=== PATIENT | female | born 1960 | race Caucasian/White ===

== ENCOUNTER 2018-07-18 22:26 | Observation (INO) | payer MEDICARE, OTHER ==
[2018-07-18] MEDS ORDERED: ASPIRIN 81 MG PO STA (23:16)
[2018-07-18] MEDS ORDERED: SODIUM CHLORIDE 0.9% 1,000 ML IV STA (23:16)
--- NOTE | 2018-07-18 23:44 | ED ---
General Adult HPI - General Chief complaint: Chest Pain Stated complaint: Chest/stomach pain Time Seen by Provider: 07/18/18 23:07 Source: patient, RN notes reviewed Mode of arrival: wheelchair Limitations: no limitations - History of Present Illness Initial comments: 58-year-old female with a history of heart failure, RA, asthma presents to the emergency department for multiple complaints. Patient states she has had chest pain and pressure 1.5 weeks. She states that each day seems to be getting worse. She denies any radiating pain. She also states that she has epigastric and left upper quadrant pain that is worsening along with the chest pain. Patient states this is worse when she lies down. Patient states she has also been somewhat short of breath because she has had a cough as well as congestion. She states she is a smoker but has not been diagnosed with COPD. She does have a history of asthma.Patient has no other complaints at this time including nausea or vomiting, headache, or visual changes. - Related Data Home Medications Medication Instructions Recorded Confirmed No Known Home Medications 07/18/18 07/18/18 Allergies Allergy/AdvReac Type Severity Reaction Status Date / Time No Known Allergies Allergy Verified 07/18/18 22:34 Review of Systems ROS Statement: Those systems with pertinent positive or pertinent negative responses have been documented in the HPI. ROS Other: All systems not noted in ROS Statement are negative. Past Medical History Additional Past Medical History / Comment(s): BACK PAIN History of Any Multi-Drug Resistant Organisms: None Reported Past Surgical History: Adenoidectomy, Back Surgery, Hysterectomy, Tonsillectomy , Tubal Ligation Additional Past Surgical History / Comment(s): LEFT BUNIONECTOMY, LEFT WRIST SURGERY Past Psychological History: Anxiety, Depression Smoking Status: Current every day smoker Past Alcohol Use History: None Reported Past Drug Use History: None Reported General Exam Limitations: no limitations General appearance: alert, in no apparent distress Head exam: Present: atraumatic, normocephalic, normal inspection Eye exam: Present: normal appearance, PERRL, EOMI. Absent: scleral icterus, conjunctival injection, periorbital swelling ENT exam: Present: normal exam, mucous membranes moist Neck exam: Present: normal inspection, full ROM. Absent: tenderness, meningismus, lymphadenopathy Respiratory exam: Present: normal lung sounds bilaterally. Absent: respiratory distress, wheezes, rales, rhonchi, stridor Cardiovascular Exam: Present: regular rate, normal rhythm, normal heart sounds. Absent: systolic murmur, diastolic murmur, rubs, gallop, clicks GI/Abdominal exam: Present: soft, tenderness (LUQ and epigastric tenderness without gaurding or rebound), normal bowel sounds. Absent: distended, guarding , rebound, rigid Course Vital Signs 07/18/18 07/19/18 07/19/18 22:32 01:08 01:22 Temperature 98.3 F 99.7 F H Pulse Rate 99 93 92 Respiratory 18 18 Rate Blood Pressure 144/86 157/73 O2 Sat by Pulse 98 99 Oximetry 07/19/18 07/19/18 07/19/18 01:32 02:02 03:32 Temperature 97.9 F Pulse Rate 92 97 89 Respiratory 18 16 Rate Blood Pressure 141/78 101/58 O2 Sat by Pulse 99 99 Oximetry EKG Findings - EKG Comments: EKG Findings:: Sinus tachycardia, ventricular rate 106, NH interval 154, QRS duration 92, atrial enlargement Medical Decision Making - Medical Decision Making 58-year-old female presents to the emergency department for multiple complaints including chest pressure, cough with associated shortness of breath for 1.5 weeks. Patient does have a history of GERD. On exam patient has left upper quadrant and epigastric tenderness. Patient is a smoker and likely has COPD which is interpreting to her cough. CBC and CMP are unremarkable. White count of 12.9 is likely reactive to pain. Patient was given Toradol in the emergency department which did help somewhat with her chest pain but she is still complaining of epigastric pain. Troponin less than 0.012. Chest x-ray shows a normal chest without change. Abdomen x-ray was obtained to rule out perforated ulcer. X-ray showed no sign of intestinal obstruction or pneumoperitoneum. At this time patient symptoms are generally atypical and likely consistent with GERD as symptoms decreased significantly with GI cocktail. however Discussed options with patient and at this time she will be admitted for serial troponins to rule out cardiac cause of pain. - Lab Data Result diagrams: 07/18/18 23:49 07/18/18 23:49 Lab Results 07/18/18 07/18/18 07/18/18 Range/Units 23:49 23:49 23:49 WBC 12.9 H (3.8-10.6) k/uL RBC 4.23 (3.80-5.40) m/uL Hgb 12.5 (11.4-16.0) gm/dL Hct 36.7 (34.0-46.0) % MCV 86.7 (80.0-100.0) fL MCH 29.5 (25.0-35.0) pg MCHC 34.0 (31.0-37.0) g/dL RDW 14.4 (11.5-15.5) % Plt Count 347 (150-450) k/uL Neutrophils % 72 % Lymphocytes % 18 % Monocytes % 5 % Eosinophils % 3 % Basophils % 1 % Neutrophils # 9.4 H (1.3-7.7) k/uL Lymphocytes # 2.3 (1.0-4.8) k/uL Monocytes # 0.6 (0-1.0) k/uL Eosinophils # 0.4 (0-0.7) k/uL Basophils # 0.1 (0-0.2) k/uL PT (9.0-12.0) sec INR (<1.2) APTT (22.0-30.0) sec Sodium 141 (137-145) mmol/L Potassium 3.7 (3.5-5.1) mmol/L Chloride 103 (98-107) mmol/L Carbon Dioxide 28 (22-30) mmol/L Anion Gap 10 mmol/L BUN 17 (7-17) mg/dL Creatinine 0.72 (0.52-1.04) mg/dL Est GFR (CKD-EPI)AfAm >90 (>60 ml/min/1.73 sqM) Est GFR (CKD-EPI)NonAf >90 (>60 ml/min/1.73 sqM) Glucose 115 H (74-99) mg/dL Calcium 8.9 (8.4-10.2) mg/dL Magnesium 1.8 (1.6-2.3) mg/dL Total Bilirubin 0.3 (0.2-1.3) mg/dL AST 17 (14-36) U/L ALT 16 (9-52) U/L Alkaline Phosphatase 68 (38-126) U/L Total Creatine Kinase <20 L (30-135) U/L CK-MB (CK-2) 0.4 (0.0-2.4) ng/mL CK-MB (CK-2) Rel Index Troponin I <0.012 (0.000-0.034) ng/mL Total Protein 7.1 (6.3-8.2) g/dL Albumin 3.5 (3.5-5.0) g/dL Urine Color Urine Appearance (Clear) Urine pH (5.0-8.0) Ur Specific [place] (1.001-1.035) Urine Protein (Negative) Urine Glucose (UA) (Negative) Urine Ketones (Negative) Urine Blood (Negative) Urine Nitrite (Negative) Urine Bilirubin (Negative) Urine Urobilinogen (<2.0) mg/dL Ur Leukocyte Esterase (Negative) Urine RBC (0-5) /hpf Urine WBC (0-5) /hpf Ur Squamous Epith Cells (0-4) /hpf Urine Bacteria (None) /hpf 07/18/18 07/19/18 Range/Units 23:49 02:00 WBC (3.8-10.6) k/uL RBC (3.80-5.40) m/uL Hgb (11.4-16.0) gm/dL Hct (34.0-46.0) % MCV (80.0-100.0) fL MCH (25.0-35.0) pg MCHC (31.0-37.0) g/dL RDW (11.5-15.5) % Plt Count (150-450) k/uL Neutrophils % % Lymphocytes % % Monocytes % % Eosinophils % % Basophils % % Neutrophils # (1.3-7.7) k/uL Lymphocytes # (1.0-4.8) k/uL Monocytes # (0-1.0) k/uL Eosinophils # (0-0.7) k/uL Basophils # (0-0.2) k/uL PT 9.5 (9.0-12.0) sec INR 1.0 (<1.2) APTT 22.5 (22.0-30.0) sec Sodium (137-145) mmol/L Potassium (3.5-5.1) mmol/L Chloride (98-107) mmol/L Carbon Dioxide (22-30) mmol/L Anion Gap mmol/L BUN (7-17) mg/dL Creatinine (0.52-1.04) mg/dL Est GFR (CKD-EPI)AfAm (>60 ml/min/1.73 sqM) Est GFR (CKD-EPI)NonAf (>60 ml/min/1.73 sqM) Glucose (74-99) mg/dL Calcium (8.4-10.2) mg/dL Magnesium (1.6-2.3) mg/dL Total Bilirubin (0.2-1.3) mg/dL AST (14-36) U/L ALT (9-52) U/L Alkaline Phosphatase (38-126) U/L Total Creatine Kinase (30-135) U/L CK-MB (CK-2) (0.0-2.4) ng/mL CK-MB (CK-2) Rel Index Troponin I (0.000-0.034) ng/mL Total Protein (6.3-8.2) g/dL Albumin (3.5-5.0) g/dL Urine Color Light Yellow Urine Appearance Cloudy H (Clear) Urine pH 6.5 (5.0-8.0) Ur Specific [place] 1.007 (1.001-1.035) Urine Protein Negative (Negative) Urine Glucose (UA) Negative (Negative) Urine Ketones Negative (Negative) Urine Blood Negative (Negative) Urine Nitrite Negative (Negative) Urine Bilirubin Negative (Negative) Urine Urobilinogen <2.0 (<2.0) mg/dL Ur Leukocyte Esterase Negative (Negative) Urine RBC 1 (0-5) /hpf Urine WBC 3 (0-5) /hpf Ur Squamous Epith Cells 5 H (0-4) /hpf Urine Bacteria Few H (None) /hpf Disposition Clinical Impression: Atypical chest pain Disposition: ADMITTED IP TO THIS HOSP Condition: Good Time of Disposition: 02:42
[2018-07-18] MEDS ORDERED: KETOROLAC 30 MG/ML 1 ML VIAL IVP STA (23:56)
[2018-07-19] MEDS ORDERED: IPRATROPIUM-ALBUTEROL 3 ML NEB INHALATION STA (00:03)
[2018-07-19 00:11] LABS: Basophils # (A) 0.1 k/uL (0-0.2); Basophils % (A) 1 %; Eosinophils # (A) 0.4 k/uL (0-0.7); Eosinophils % (A) 3 %; HCT 36.7 % (34.0-46.0); HGB 12.5 gm/dL (11.4-16.0); Lymphocytes # (A) 2.3 k/uL (1.0-4.8); Lymphocytes % (A) 18 %; MCH 29.5 pg (25.0-35.0); MCV 86.7 fL (80.0-100.0); Mean Platelet Volume 6.8; Monocytes # (A) 0.6 k/uL (0-1.0); Monocytes % (A) 5 %; Neutrophils # (A) 9.4 k/uL (1.3-7.7); Neutrophils % (A) 72 %; Platelet Count 347 k/uL (150-450); RBC 4.23 m/uL (3.80-5.40); RDW 14.4 % (11.5-15.5); WBC 12.9 k/uL (3.8-10.6)
[2018-07-19 00:19] LABS: Partial Thromboplastin Time 22.5 sec (22.0-30.0); Prothrombin Time 9.5 sec (9.0-12.0)
[2018-07-19 00:24] LABS: ALT 16 U/L (9-52); AST 17 U/L (14-36); Albumin 3.5 g/dL (3.5-5.0); Alkaline Phosphatase 68 U/L (38-126); Anion Gap 10 mmol/L; Blood Urea Nitrogen 17 mg/dL (7-17); Calcium 8.9 mg/dL (8.4-10.2); Carbon Dioxide 28 mmol/L (22-30); Chloride 103 mmol/L (98-107); Glucose 115 mg/dL (74-99); Magnesium 1.8 mg/dL (1.6-2.3); Potassium 3.7 mmol/L (3.5-5.1); Sodium 141 mmol/L (137-145); Total Bilirubin 0.3 mg/dL (0.2-1.3); Total Protein 7.1 g/dL (6.3-8.2)
[2018-07-19 00:45] LABS: Creatine Kinase <20 U/L (30-135)
--- NOTE | 2018-07-19 00:50 | XR ---
EXAMINATION TYPE: XR chest 2V DATE OF EXAM: 07/19/2018 COMPARISON: 04/25/2011 HISTORY: Chest pain TECHNIQUE: Frontal and lateral views of the chest are obtained. FINDINGS: Heart and mediastinum are normal. Lungs are clear. Diaphragm is normal. Bony thorax is int act. There are chest leads. IMPRESSION: Normal chest. No change.
--- NOTE | 2018-07-19 00:51 | XR ---
EXAMINATION TYPE: XR abdomen 2V DATE OF EXAM: 07/19/2018 COMPARISON: 07/19/2018 HISTORY: Chest pain TECHNIQUE: 2 views FINDINGS: There is no sign of intestinal obstruction or pneumoperitoneum. Fecal pattern is normal. Th ere is no evidence of a mass. There are no pathologic calcifications over the kidneys. Lung bases are clear. IMPRESSION: Nonacute abdomen.
[2018-07-19 00:57] LABS: Creatine Kinase MB 0.4 ng/mL (0.0-2.4); Troponin I <0.012 ng/mL (0.000-0.034)
[2018-07-19] MEDS ORDERED: MAG HYDROX/AL HYDROX/SIMETH 30 ML, HYOSCYAMINE ELIXIR 10 ML, CIMETIDINE HCL 300 MG, LID... PO STA ×4 (01:28)
[2018-07-19] MEDS ORDERED: NITROGLYCERIN SL TABS 0.4 MG TAB SUBLINGUAL PRN (02:56)
[2018-07-19 03:01] LABS: Appearance,Urine Cloudy (Clear); Bacteria,Urine Few /hpf; Bilirubin,Urine Negative (Negative); Blood,Urine Negative (Negative); Color,Urine Light Yellow; Glucose,Urine (UA) Negative (Negative); Ketones,Urine Negative (Negative); Leukocyte Esterase,Urine Negative (Negative); Nitrite,Urine Negative (Negative); PH, Urine 6.5 (5.0-8.0); Protein,Urine Negative (Negative); RBC,Urine 1 /hpf (0-5); Specific Gravity,Urine 1.007 (1.001-1.035); Squamous Epithelial Cell,Urine 5 /hpf (0-4); Urobilinogen,Urine <2.0 mg/dL (<2.0); WBC,Urine 3 /hpf (0-5)
[2018-07-19] MEDS ORDERED: AZITHROMYCIN 500 MG TAB PO STA (03:28)
[2018-07-19] MEDS ORDERED: IPRATROPIUM-ALBUTEROL 3 ML NEB INHALATION PRN (03:29)
[2018-07-19] MEDS ORDERED: predniSONE 20 MG TAB PO STA (03:29)
[2018-07-19] MEDS ORDERED: CARVEDILOL 3.125 MG TAB PO STA (03:33)
--- NOTE | 2018-07-19 03:39 | P.HPIM ---
History of Present Illness H&P Date: 07/19/18 Chief Complaint: chest pain and cough/SOA 58-year-old female with a history of heart failure of unknown type, HTN, dyslipidemia, RA, asthma presents to the emergency department for multiple complaints. Patient states she has had chest pain and pressure 1.5 weeks. She states that each day seems to be getting worse. She denies any radiating pain. Most recently earlier today the patient reported feeling like to await was sitting on her chest, described as pressure substernally, with associated shortness of breath nausea, lightheadedness and presyncope earlier today. She also reports a cough and chest congestion over the last 2 weeks that has been productive clear sputum. She also states that she has epigastric and left upper quadrant pain that is worsening along with the chest pain. Patient states this is worse when she lies down. She states she is a smoker but has not been diagnosed with COPD. She does have a history of asthma. In the ER the patient had a comprehensive workup chest x-ray showed no acute cardiopulmonary disease. Troponins were negative 1, EKG will be ordered. Mild leukocytosis of 12.9 Review of Systems Pertinent positives per HPI, all other review of systems are otherwise negative Past Medical History Additional Past Medical History / Comment(s): BACK PAIN History of Any Multi-Drug Resistant Organisms: None Reported Past Surgical History: Adenoidectomy, Back Surgery, Hysterectomy, Tonsillectomy , Tubal Ligation Additional Past Surgical History / Comment(s): LEFT BUNIONECTOMY, LEFT WRIST SURGERY Past Psychological History: Anxiety, Depression Smoking Status: Current every day smoker Past Alcohol Use History: None Reported Past Drug Use History: None Reported Medications and Allergies Home Medications Medication Instructions Recorded Confirmed Type No Known Home Medications 07/18/18 07/18/18 History Allergies Allergy/AdvReac Type Severity Reaction Status Date / Time No Known Allergies Allergy Verified 07/18/18 22:34 Physical Exam Vitals: Vital Signs Temp Pulse Resp BP Pulse Ox 07/19/18 02:02 97 18 141/78 99 07/19/18 01:32 92 07/19/18 01:22 92 07/19/18 01:08 99.7 F H 93 18 157/73 99 07/18/18 22:32 98.3 F 99 18 144/86 98 Intake and Output 07/18/18 07/18/18 07/19/18 14:59 22:59 06:59 Other: Weight 72.575 kg Constitutional: No acute distress, conversant, pleasant Eyes: Anicteric sclerae, moist conjunctiva, no lid-lag, PERRLA ENMT: NC/AT,Oropharynx clear, no erythema, exudates Neck:Supple, FROM, no masses, or JVD, No carotid bruits; No thyromegaly Lungs: Coarse breath sounds congested with scant expiratory wheezes Clear to percussion, Normal respiratory effort, no accessory muscle use Cardiovascular: Heart regular in rate and rhythm, No murmurs, gallops, or rubs no peripheral edema Abdominal: Soft Nontender, nom distended, no guarding, no rebound or rigidity, Normoactive bowel sounds No hepatomegaly, No splenomegaly, No palpable mass No abdominal wall hernia noted Skin: Normal temperature, tone, texture, turgor, No induration No subcutaneous nodules, No rash, lesions, No ulcers Extremities:No digital cyanosis No clubbing, Pedal pulses intact and symmetrical Radial pulses intact and symmetrical Normal gait and station, No calf tenderness Psychiatric: Alert and oriented to person, place and time, Appropriate affect Intact judgement Neuro: Muscles Strength 5/5 in all 4 extremities, Sensation to light touch grossly present throughout, Cranial nerves II-XII grossly intact. No focal sensory deficits Results CBC & Chem 7: 07/18/18 23:49 07/18/18 23:49 Labs: Abnormal Lab Results - Last 24 Hours (Table) 07/18/18 07/18/18 07/18/18 Range/Units 23:49 23:49 23:49 WBC 12.9 H (3.8-10.6) k/uL Neutrophils # 9.4 H (1.3-7.7) k/uL Glucose 115 H (74-99) mg/dL Total Creatine Kinase <20 L (30-135) U/L Urine Appearance (Clear) Ur Squamous Epith Cells (0-4) /hpf Urine Bacteria (None) /hpf 07/19/18 Range/Units 02:00 WBC (3.8-10.6) k/uL Neutrophils # (1.3-7.7) k/uL Glucose (74-99) mg/dL Total Creatine Kinase (30-135) U/L Urine Appearance Cloudy H (Clear) Ur Squamous Epith Cells 5 H (0-4) /hpf Urine Bacteria Few H (None) /hpf Assessment and Plan (1) Atypical chest pain Current Visit: Yes Status: Acute Code(s): R07.89 - OTHER CHEST PAIN SNOMED Code(s): 960180758 (2) Acute bronchitis Current Visit: Yes Status: Acute Code(s): J20.9 - ACUTE BRONCHITIS, UNSPECIFIED SNOMED Code(s): 26211408 (3) Mild asthma exacerbation Current Visit: Yes Status: Acute Code(s): J45.901 - UNSPECIFIED ASTHMA WITH (ACUTE) EXACERBATION SNOMED Code(s): 186914055 (4) Leukocytosis Current Visit: Yes Status: Acute Code(s): D72.829 - ELEVATED WHITE BLOOD CELL COUNT, UNSPECIFIED SNOMED Code(s): 859664420 Plan: The patient is placed on observation anticipate a less than 2 midnight stay after being placed on observation for atypical chest pain, we'll check a EKG initial set of troponins are negative we'll continue to cycle troponins and consult cardiology for further recommendations, routine chest pain orders initiated patient on aspirin, Blood pressure slightly elevated, initiate patient on Coreg. Consult cardiology for further recommendations. Pain likely related to mild acute asthma exacerbation triggered by acute bronchitis, mild low-grade temperature clear chest x-ray, patient initiated on Z-Herve and oral prednisone therapy with scheduled and when necessary bronchodilator breathing treatments. We'll check sputum culture.
[2018-07-19] MEDS: IPRATROPIUM-ALBUTEROL 3 ML NEB INHALATION SCH ×5 (06:26→20:06)
[2018-07-19 07:47] LABS: Creatine Kinase <20 U/L (30-135)
[2018-07-19 07:59] LABS: Creatine Kinase MB 0.3 ng/mL (0.0-2.4); Troponin I <0.012 ng/mL (0.000-0.034)
[2018-07-19] MEDS ORDERED: traMADol 50 MG TAB PO STA (10:12)
[2018-07-19] MEDS: NICOTINE 14MG/24HR PATCH TRANSDERM SCH (11:25)
[2018-07-19 11:43] LABS: Creatine Kinase <20 U/L (30-135)
[2018-07-19 11:55] LABS: Creatine Kinase MB 0.4 ng/mL (0.0-2.4); Troponin I <0.012 ng/mL (0.000-0.034)
--- NOTE | 2018-07-19 12:33 | CONS ---
CONSULTATION CHIEF COMPLAINT: Chest pain. Nunu is a 58-year-old lady with no significant past medical history who presented to hospital complaining of pain. She initially describes it as pain that she had all over her body. She had abdominal pain, epigastric pain, and subsequently said she had chest pain. She is being treated with antibiotics but is also admitted to hospital with chest pain. Since being admitted, she is feeling better. The chest pain seems to have improved. Two sets of cardiac enzymes are negative. EKG does not reveal ischemic changes. Hemoglobin is normal at 12.5. White cell count is slightly elevated. She is being treated with nebulizers, antibiotics, aspirin and beta blockers. There is a history of congestive heart failure, but there is no prior documentation of LV function, and I am not quite sure why she had congestive heart failure. There is no history of coronary artery disease. At the time of my evaluation she appears comfortable at rest and is free of symptoms. I will obtain a 2D echo on her to evaluate her LV function and schedule her for a dobutamine stress test on Saturday. PAST MEDICAL HISTORY: Negative for hypertension, diabetes . MEDICATIONS: None. ALLERGIES: NONE. FAMILY HISTORY: Negative for premature coronary artery disease. SOCIAL HISTORY: Negative for smoking, EtOH abuse or drug abuse. REVIEW OF SYSTEMS: HEENT is unremarkable. CARDIAC: As described above. RESPIRATORY: As described above. GI: Negative. GENITOURINARY: Negative. ALLERGY/IMMUNOLOGY: Negative. SKIN: Negative. MUSCULOSKELETAL: Significant for arthritis. PSYCHOSOCIAL: Negative. ENDOCRINE: Negative. DERMATOLOGICAL: Negative. CONSTITUTIONAL: Negative. ONCOLOGICAL: Negative. Rest of the system review is not relevant. PHYSICAL EXAMINATION: Comfortable at rest. Vital signs are stable. There is no jugular venous distention. Carotid upstroke is normal. There is no bruit. Chest exam reveals good air entry bilaterally. Heart exam reveals first and second heart sounds. No gallop. Examination of extremities did not reveal edema. Peripheral pulses are felt. ASSESSMENT: 1. Atypical chest pain. Myocardial infarction is ruled out. Patient has fairly vague and nonspecific symptoms. I will obtain a 2D echo and a stress test. If this is negative, she can be discharged home. 2. Smoking. I advised the patient to quit smoking. MMODL / IJN: [id number] /
[2018-07-19] MEDS ORDERED: HYDROcodone/APAP 5-325MG 1 EACH TAB PO PRN (14:59)
--- NOTE | 2018-07-19 15:14 | ECHOF ---
Referral Reason:chest pain MEASUREMENTS -------- HEIGHT: 182.9 cm WEIGHT: 72.6 kg BP: IVSd: 1.3 cm (0.6 - 1.1) LVIDd: 4.1 cm (3.9 - 5.3) LVPWd: 1.7 cm (0.6 - 1.1) IVSs: 1.6 cm LVIDs: 3.0 cm LVPWs: 1.4 cm LA Diam: 3.6 cm (2.7 - 3.8) LAESV Index (A-L): 20.25 ml/m Ao Diam: 2.9 cm (2.0 - 3.7) AV Cusp: 1.7 cm (1.5 - 2.6) LA Diam: 3.1 cm (2.7 - 3.8) MV EXCURSION: 18.395 mm (> 18.000) MV EF SLOPE: 75 mm/s (70 - 150) EPSS: 0.3 cm MV E Dominic: 0.58 m/s MV DecT: 233 ms MV A Dominic: 0.93 m/s MV E/A Ratio: 0.63 RAP: 5.00 mmHg RVSP: 27.65 mmHg FINDINGS -------- Sinus rhythm. This was a technically adequate study. The left ventricular size is normal. There is mild concentric left ventricular hypertrophy. Overa ll left ventricular systolic function is normal with, an EF between 55 - 60 %. The right ventricle is normal in size. The left atrial size is normal. The right atrial size is normal. The aortic valve is trileaflet, and appears structurally normal. No aortic stenosis or regurgitation. Mild mitral annular calcification present. Mild mitral regurgitation is present. Mild tricuspid regurgitation present. There is no evidence of pulmonary hypertension. The right v entricular systolic pressure, as measured by Doppler, is 27.65mmHg. Trace/mild (physiologic) pulmonic regurgitation. The aortic root size is normal. Echo free space represents a pericardial fat pad. CONCLUSIONS -------- 1. The left ventricular size is normal. 2. There is mild concentric left ventricular hypertrophy. 3. Overall left ventricular systolic function is normal with, an EF between 55 - 60 %. 4. The right ventricle is normal in size. 5. The left atrial size is normal. 6. The right atrial size is normal. 7. The aortic valve is trileaflet, and appears structurally normal. No aortic stenosis or regurgitati on. 8. Mild mitral annular calcification present. 9. Mild mitral regurgitation is present. 10. Mild tricuspid regurgitation present. 11. There is no evidence of pulmonary hypertension. 12. The right ventricular systolic pressure, as measured by Doppler, is 27.65mmHg. 13. Trace/mild (physiologic) pulmonic regurgitation. 14. The aortic root size is normal. 15. Echo free space represents a pericardial fat pad. OR RN: Astrid Al RDCS
[2018-07-19] MEDS: PANTOPRAZOLE 40 MG TABLET PO SCH (15:29)
[2018-07-19] MEDS ORDERED: ALPRAZolam 1 MG TAB PO STA (16:55)
[2018-07-19] MEDS: METOCLOPRAMIDE 5 MG/ML 2 ML VIAL IVP PRN ×2 (17:25→21:03)
[2018-07-19] MEDS: CARVEDILOL 6.25 MG TAB PO SCH (20:26)
[2018-07-19] MEDS: MORPHINE SULFATE 2 MG/ML SYRINGE IVP PRN ×2 (20:26→23:35)
[2018-07-20] MEDS: IPRATROPIUM-ALBUTEROL 3 ML NEB INHALATION SCH ×6 (03:38→20:24)
[2018-07-20] MEDS: METOCLOPRAMIDE 5 MG/ML 2 ML VIAL IVP PRN (06:58)
[2018-07-20] MEDS: MORPHINE SULFATE 4 MG/ML SYRINGE IVP PRN ×5 (06:58→23:16)
[2018-07-20 07:12] LABS: HCT 36.8 % (34.0-46.0); HGB 11.7 gm/dL (11.4-16.0); MCH 28.2 pg (25.0-35.0); MCHC 31.8 g/dL (31.0-37.0); MCV 88.9 fL (80.0-100.0); Mean Platelet Volume 6.6; Platelet Count 357 k/uL (150-450); RBC 4.14 m/uL (3.80-5.40); RDW 14.3 % (11.5-15.5); WBC 12.1 k/uL (3.8-10.6)
[2018-07-20 07:25] LABS: Cholesterol 175 mg/dL (<200); HDL Cholesterol 35 mg/dL (40-60); LDL Cholesterol,Calculated 105 mg/dL (0-99); Triglycerides 176 mg/dL (<150)
[2018-07-20] MEDS: NICOTINE 14MG/24HR PATCH TRANSDERM SCH (08:39)
[2018-07-20] MEDS: AZITHROMYCIN 250 MG TAB PO SCH (08:39)
[2018-07-20] MEDS: PANTOPRAZOLE 40 MG TABLET PO SCH ×2 (08:39→18:03)
[2018-07-20] MEDS: predniSONE 20 MG TAB PO SCH (08:39)
[2018-07-20] MEDS: CARVEDILOL 6.25 MG TAB PO SCH ×2 (08:39→18:02)
[2018-07-20] MEDS ORDERED: ASPIRIN 325 MG TAB PO SCH (09:00)
--- NOTE | 2018-07-20 09:16 | PN ---
PROGRESS NOTE Nunu is a 58-year-old lady that is admitted to hospital with chest pain. This morning her chest pain has improved. She continues to have epigastric pain and has epigastric tenderness. On exam, she is comfortable at rest. Vital signs are stable. There is no jugular venous distention. Chest exam reveals good air entry bilaterally. Heart exam reveals first and second heart sounds. No gallop. Exam of extremities did not reveal any edema. Peripheral pulses are felt. ASSESSMENT: Chest pain, atypical probably related to the epigastric pain. The patient will have an EGD tomorrow morning and the patient is currently in the process of getting an EGD done in the morning. She can have a stress test done after that. MMODL / IJN: [id number] /
--- NOTE | 2018-07-20 09:19 | CONS ---
CONSULTATION REQUESTING PHYSICIAN: Dr. Trey Mcintosh REASON FOR CONSULTATION: Epigastric pain and coffee-grounds emesis. HISTORY OF PRESENT ILLNESS: The patient is a 58-year-old pleasant white female who was admitted to the hospital with a atypical chest pain and epigastric pain that has been going on for the last 2 weeks duration. Initially started of chest tightness associated with some cough and progressed to severe epigastric pain for the last 2 weeks duration. She had several episodes of nausea vomiting couple of times from coffee-grounds emesis. She has been taking Motrin at least 7-8 tablets daily for the last several months for rheumatoid arthritis. No prior history of peptic ulcer disease. Her pain is mostly in the epigastric area radiating to the chest and to the back. She has some nausea and vomiting as described above. Denies any rectal bleeding or melena. Never had these symptoms in the past. No prior history of peptic ulcer disease. She did have cardiac evaluation done and she is scheduled for a stress test tomorrow. PAST MEDICAL HISTORY: Significant for rheumatoid arthritis, asthma. PAST SURGICAL HISTORY: Tonsillectomy, hysterectomy, back surgery, tubal ligation, left bunionectomy. MEDICATIONS: At home Motrin p.r.n., Tylenol p.r.n. SOCIAL HISTORY: Chronic smoker. No alcohol use. FAMILY HISTORY: Unremarkable. REVIEW OF SYSTEMS: CARDIOPULMONARY: Does complain of chest pain, but no shortness of breath. GENITOURINARY: No dysuria or hematuria. MUSCULOSKELETAL: History of rheumatoid arthritis. SKIN: Unremarkable. ENDOCRINE: Unremarkable. PSYCHIATRIC: Unremarkable. NEUROLOGY: Unremarkable. ENT/VISION: Unremarkable. CONSTITUTIONAL: No recent weight loss. No fever, chills, night sweats. PHYSICAL EXAMINATION: She appears comfortable, no apparent distress. Vital signs are stable. Blood pressure is 128/68, pulse rate 89, temperature 98.7. HEENT examination unremarkable. Conjunctivae pink. Sclerae anicteric. Oral cavity no lesions. Neck: No JVD. No lymph node enlargement. The chest was clear to auscultation. HEART: Regular rate and rhythm. Abdomen is soft. There was severe tenderness in the epigastric area. Rest of the abdomen was benign. No organomegaly. EXTREMITIES: No pedal edema. SKIN: No rashes. NEUROLOGIC: Alert and oriented x3. No focal deficits. LABS: From yesterday: WBC 12.9, hemoglobin 12.5, platelets are normal. Basic metabolic panel is within normal limits. BUN 20, creatinine 0.7. This morning hemoglobin is 11.7 and WBC is 12.1. IMPRESSION: This is a lady who presents to the hospital with atypical chest pain as well as severe epigastric pain on and off for the last 2 weeks duration which has been progressively getting worse associated with nausea, vomiting, and possible coffee-grounds emesis on 2 different occasions a couple of days ago. Hemoglobin remains stable at 12.5 g/dL. She has been taking Motrin regularly for rheumatoid arthritis for the last several months. The possibility of peptic ulcer disease needs to be considered. We cannot rule out erosive gastritis. RECOMMENDATIONS: 1. Continue with Protonix 40 mg twice daily. 2. Clear liquid diet. 3. Proceed with an upper endoscopy tomorrow. Discussed with the patient risks, benefits, and complications of the procedure and she is agreeable to it. Thank you for this consultation. SOPHY / HERBERTN: [id number] /
--- NOTE | 2018-07-20 16:00 | P.PN ---
Subjective Progress Note Date: 07/20/18 Patient is a 58-year-old female with a PMH of hypertension, hyperlipidemia, rheumatoid arthritis, and asthma who presented to the ED for intermittent chest pain nonradiating for the past 1-1/2 weeks, with associated shortness of breath , nausea, and and lightheadedness. She had also endorsed epigastric pain, associated with acidic or spicy foods, worse when laying down. In the ED, the patient had a chest x-ray which was unremarkable, with troponins negative 3, and WBC count 12.9. She was in [place] under observation for further evaluation. Cardiology was consulted and recommended an echocardiogram which showed an LVEF 55-60% and mild LVH. The recommended a stress echocardiogram. Furthermore GI was consulted for epigastric abdominal pain and suspected peptic ulcer disease, with then recommended an upper endoscopy. Vision was seen and examined at the bedside. She continues to endorse epigastric pain but notes that it has improved since yesterday. She otherwise denied any episodes of shortness of breath, palpitations, or dizziness. She further denied any episodes of nausea, vomiting, or diarrhea, or dysuria. The patient is scheduled for an upper endoscopy and a stress echocardiogram tomorrow. Objective - Vital Signs Vital signs: Vital Signs Temp 98.1 F 07/20/18 12:00 Pulse 82 07/20/18 12:00 Resp 16 07/20/18 12:00 BP 147/81 07/20/18 12:00 Pulse Ox 98 07/20/18 12:00 Intake & Output 07/19/18 07/20/18 07/20/18 18:59 06:59 18:59 Output Total 350 Balance -350 Output: Emesis 350 Other: Voiding Method Toilet Toilet Toilet # Voids 2 - Exam General: Non-toxic, in no acute distress HEENT: NC/AT, anicteric sclerae, moist conjunctiva, no lid-lag, PERRLA, oropharynx clear, no erythema, exudates Cardiovascular: S1/S2 wnl, no murmurs, rubs, or gallops Lungs: Clear to auscultation, normal respiratory effort, no accessory muscle use Abdominal: Mild epigastric tenderness to palpation, nondistended, no guarding or rebound, normoactive bowel sounds Skin: Warm, dry Extremities: No edema or contractures Psychiatric: Alert and oriented to person, place and time, appropriate affect, Intact judgment Neuro: CN II-XII grossly intact, no focal motor deficits - Labs CBC & Chem 7: 07/20/18 06:46 07/18/18 23:49 Labs: Abnormal Lab Results - Last 24 Hours (Table) 07/20/18 07/20/18 Range/Units 06:46 06:46 WBC 12.1 H (3.8-10.6) k/uL Triglycerides 176 H (<150) mg/dL LDL Cholesterol, Calc 105 H (0-99) mg/dL HDL Cholesterol 35 L (40-60) mg/dL Microbiology - Last 24 Hours (Table) 07/20/18 08:25 Sputum Culture - Preliminary Sputum 07/18/18 23:49 Blood Culture - Preliminary Blood No Growth after 24 hours Assessment and Plan Plan: Atypical chest pain and shortness of breath -Cardiology recommended she is appreciated -Echocardiogram reviewed, EF is 55-60% with mild LVH -Scheduled for stress echocardiogram tomorrow Epigastric abdominal pain, suspected peptic ulcer disease -GI recommendations appreciated -Patient scheduled for EGD tomorrow -Continue with Protonix twice a day Hyperlipidemia -Unsure why patient is not on a statin -We will consider starting after discharge Rheumatoid arthritis -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
[2018-07-20] MEDS ORDERED: IPRATROPIUM-ALBUTEROL 3 ML NEB INHALATION PRN (20:30)
[2018-07-21] MEDS: MORPHINE SULFATE 4 MG/ML SYRINGE IVP PRN ×5 (03:16→20:49)
[2018-07-21] MEDS: MELATONIN 3 MG TABLET PO PRN ×2 (03:16→22:44)
[2018-07-21] MEDS ORDERED: DOBUTamine DRIP for NUC MED 500 MG in DEXTROSE/WATER 1 250ML.BAG IV ONE (06:00)
[2018-07-21] MEDS: IPRATROPIUM-ALBUTEROL 3 ML NEB INHALATION SCH ×4 (07:19→19:46)
--- NOTE | 2018-07-21 10:56 | P.STRESS ---
- Stress Test Note Stress Test Results/Findings: Exam Performed: dobutamine stress echo Exam Date: 07/21/18 Reason for Exam: CHEST PAIN Height: 6 ft Weight: 72.575 kg Protocol: DSE Stage: 3 Duration of Exercise: 9:00 Resting Heart Rate: 90 Resting Blood Pressure: 144/92 Maximum Achieved Heart Rate: 139 Maximum Achieved Blood Pressure: 196/69 85% PMHR: 139 100% PMHR: 163 METS: NA Technologist Comment: Stress Test Results/Findings: This is a 58-year-old female with history of smoking being evaluated for symptoms of chest pain and palpitations and also shortness of breath. Stress data: Baseline EKG showed sinus rhythm with more when necessary 20. QRS duration. Blood pressure at rest is 144/92 with pulse rate of 90. A standard dose of dobutamine was initiated and was titrated from 10 mics to 30 mics, achieving a maximal heart rate of 139 with blood pressure 191/65. EKGs taken during and after the exercise did not reveal any changes to suggest ischemia. Echo data: Baseline echo images showed normal wall motion and thickening. Echo images taken at low dose and high dose dobutamine showed progressive augmentation of wall motion and thickening in all the segments. Final impression: #1. Negative dobutamine stress test #2. Negative dobutamine stress echo
[2018-07-21] MEDS ORDERED: PROPOFOL 10 MG/ML 20 ML VIAL IV ONE (11:17)
[2018-07-21] MEDS ORDERED: LIDOCAINE 1% INJ 10MG/ML (20 ML MDV) ONE (11:17)
[2018-07-21] MEDS ORDERED: LACTATED RINGERS 1,000 ML IV ONE (11:19)
--- NOTE | 2018-07-21 12:02 | P.PCN ---
Date of Procedure: 07/21/18 Procedure(s) Performed: BRIEF HISTORY: Patient is a 58-year-old, pleasant, white female, admitted to the hospital with severe epigastric pain and chest pain for the last few days duration. She is hence scheduled for an upper endoscopy to evaluate further. She had cardiac workup done that was negative.. PROCEDURE PERFORMED: Esophagogastroduodenoscopy with biopsy and Endo Clip placement. PREOPERATIVE DIAGNOSIS: Severe epigastric pain of 2 weeks duration. IV sedation per anesthesia. PROCEDURE: After informed consent was obtained, the patient was brought into the endoscopy unit. IV sedation was administered by Anesthesia under continuous monitoring. Initially the Olympus GIF-140 video endoscope was inserted into the mouth. Esophagus intubated without any difficulty. It was gradually advanced into the stomach and immediately there were large clots noted in the stomach. The scope was removed and a therapeutic upper endoscopy was passed into the stomach and duodenum and carefully examined. The bulb and the second part of the duodenum appeared normal. Along the pylorus there was a 2 cm superficial ulceration identified with no active bleeding. The scope at this time was withdrawn to the stomach, adequately insufflated with air, and upon careful examination, there were large clots noted which were all thoroughly suctioned and irrigated. The mucosa of the antrum appeared normal. In the mid body of the stomach along the incisura angularis there was a 3 cm deep ulceration with a visible vessel noted. At this time 3 endoclips were placed on the visible vessel and good hemostasis. Biopsies were done from the margin of the ulcer. The rest of the mucosa of the antrum, body, cardia and the fundus appeared normal. The scope was then withdrawn into the esophagus. The GE junction was located at 39 cm from the incisors. The esophagus appeared normal. There were no erosions or ulcerations seen and the patient tolerated the procedure well. IMPRESSION: 1. Large clots in the fundus of the stomach suggestive of active upper GI bleed. 2. 3 cm deep gastric ulcer along the incisura angularis with a visible vessel status post placement with good hemostasis 3. 2 cm superficial pyloric channel ulcer with no active bleeding. RECOMMENDATIONS: The findings of this examination were discussed with the patient. Findings were discussed with Dr. Mcintosh. She will be started on IV Protonix 40 mg every 12 hours, monitor CBC every 6 hours and keep her on clear liquid diet. Surgical consultation on a standby in case of surgical intervention..
--- NOTE | 2018-07-21 12:16 | P.PN ---
Subjective Mrs. Harrison is seen and examined in no acute distress. She continues to feel discomfort in the epigastric region. Denies chest pain, shortness of breath, dizziness or palpitations. Blood pressure 135/80 herat rate 76 afebrile. She underwent dobutamine stress echocardiogram that was normal with no evidence of ischemic heart disease. She has also been seen by GI services and will have an EGD this morning as well. Objective - Vital Signs Vital signs: Vital Signs Temp 98.6 F 07/21/18 07:27 Pulse 76 07/21/18 07:38 Resp 16 07/21/18 07:27 BP 135/80 07/21/18 07:27 Pulse Ox 97 07/21/18 07:27 Intake & Output 07/20/18 07/21/18 07/21/18 18:59 06:59 18:59 Intake Total 300 Balance 300 Weight 72.575 kg Intake: IV 300 Other: Voiding Method Toilet Toilet Toilet # Voids 1 - Exam GENERAL: Well-appearing, well-nourished and in no acute distress. NECK: Supple without JVD or thyromegaly. LUNGS: Breath sounds clear to auscultation bilaterally. Respiration equal and unlabored. No wheezes, rales or rhonchi. HEART: Regular rate and rhythm without murmurs, rubs or gallops. S1 and S2 heard. EXTREMITIES: Normal range of motion, no edema. No clubbing or cyanosis. Peripheral pulses intact. - Labs CBC & Chem 7: 07/20/18 06:46 07/18/18 23:49 Labs: Microbiology - Last 24 Hours (Table) 07/18/18 23:49 Blood Culture - Preliminary Blood No Growth after 48 hours 07/20/18 08:25 Gram Stain - Preliminary Sputum Sputum Culture - Preliminary Assessment and Plan Assessment: ASSESSMENT Chest pain, atypical. An acute coronary event has been ruled out with no EKG evidence of ischemia and negative cardiac enzymes. Leukocytosis Dyslipidemia Chronic nicotine dependence. PLAN To be demean stress echocardiogram has been obtained this morning negative for stress-induced cardiac ischemic changes. Stable from a cardiac perspective to proceed with EGD. Smoking cessation and lifestyle modifications are recommended for lowering of LDL cholesterol. Follow-up with Dr. Valdivia in 2-3 weeks. Nurse Practitioner note has been reviewed, I agree with a documented findings and plan of care. Patient was seen and examined.
[2018-07-21] MEDS: PANTOPRAZOLE 40 MG/10 ML VIAL IVP SCH ×2 (12:32→20:49)
[2018-07-21] MEDS: NICOTINE 14MG/24HR PATCH TRANSDERM SCH (12:54)
[2018-07-21] MEDS: predniSONE 20 MG TAB PO SCH (12:54)
[2018-07-21] MEDS: CARVEDILOL 6.25 MG TAB PO SCH ×2 (12:54→19:06)
[2018-07-21] MEDS: AZITHROMYCIN 250 MG TAB PO SCH (12:54)
[2018-07-21] MEDS: PANTOPRAZOLE 40 MG TABLET PO SCH (12:55)
[2018-07-21 14:39] LABS: Basophils % (A) 0 %; Eosinophils # (A) 0.1 k/uL (0-0.7); Eosinophils % (A) 2 %; HCT 31.7 % (34.0-46.0); HGB 10.3 gm/dL (11.4-16.0); Lymphocytes # (A) 2.1 k/uL (1.0-4.8); Lymphocytes % (A) 26 %; MCH 28.8 pg (25.0-35.0); MCHC 32.5 g/dL (31.0-37.0); MCV 88.6 fL (80.0-100.0); Mean Platelet Volume 6.8; Monocytes # (A) 0.4 k/uL (0-1.0); Monocytes % (A) 5 %; Neutrophils # (A) 5.3 k/uL (1.3-7.7); Neutrophils % (A) 65 %; Platelet Count 355 k/uL (150-450); RBC 3.58 m/uL (3.80-5.40); RDW 14.6 % (11.5-15.5); WBC 8.2 k/uL (3.8-10.6)
--- NOTE | 2018-07-21 15:45 | P.PN ---
Subjective Progress Note Date: 07/21/18 Patient is a 58-year-old female with a PMH of hypertension, hyperlipidemia, rheumatoid arthritis, and asthma who presented to the ED for intermittent chest pain nonradiating for the past 1-1/2 weeks, with associated shortness of breath , nausea, and and lightheadedness. She had also endorsed epigastric pain, associated with acidic or spicy foods, worse when laying down. In the ED, the patient had a chest x-ray which was unremarkable, with troponins negative 3, and WBC count 12.9. She was in [place] under observation for further evaluation. Cardiology was consulted and recommended an echocardiogram which showed an LVEF 55-60% and mild LVH. The recommended a stress echocardiogram which was negative for inducible ischemia. Furthermore GI was consulted for epigastric abdominal pain and suspected peptic ulcer disease, who then recommended an upper endoscopy which revealed large clots on the fundus of the stomach suggestive of active UGIB w/ 3 cm deep gastric ulcer s/p clip placement and a 2 cm superficial pyloric channel ulcer w/ no active bleeding. Patient was seen and examined at the bedside s/p EGD and stress test. She was in good spirits though continues to have [id number] epigastric pain. She however denied any episodes of nausea, vomiting, diarrhea, black tarry stools, or BRBPR. She further denied any chest pain, SOB, dizziness, palpitations, cough, fever, or chills. Objective - Vital Signs Vital signs: Vital Signs Temp 97.6 F 07/21/18 12:15 Pulse 79 07/21/18 12:30 Resp 18 07/21/18 12:15 BP 161/89 07/21/18 12:30 Pulse Ox 100 07/21/18 12:30 Intake & Output 07/20/18 07/21/18 07/21/18 18:59 06:59 18:59 Intake Total 300 Balance 300 Weight 72.575 kg Intake: IV 300 Other: Voiding Method Toilet Toilet Toilet # Voids 1 - Exam General: Non-toxic, in no acute distress HEENT: NC/AT, anicteric sclerae, moist conjunctiva, no lid-lag, PERRLA, oropharynx clear, no erythema, exudates Cardiovascular: S1/S2 wnl, no murmurs, rubs, or gallops Lungs: Clear to auscultation, normal respiratory effort, no accessory muscle use Abdominal: Moderate epigastric tenderness to palpation, nondistended, no guarding or rebound, normoactive bowel sounds Skin: Warm, dry Extremities: No edema or contractures Psychiatric: Alert and oriented to person, place and time, appropriate affect, Intact judgment Neuro: CN II-XII grossly intact, no focal motor deficits - Labs CBC & Chem 7: 07/21/18 14:06 07/18/18 23:49 Labs: Microbiology - Last 24 Hours (Table) 07/18/18 23:49 Blood Culture - Preliminary Blood No Growth after 48 hours 07/20/18 08:25 Gram Stain - Preliminary Sputum Sputum Culture - Preliminary Assessment and Plan Plan: Atypical chest pain and shortness of breath -Cardiology recommendations appreciated -Echocardiogram reviewed, EF is 55-60% with mild LVH -Stress test negative for inducible ischemia Active UGIB w/ deep gastric ulcer and superficial pyloric channel ulcer -Will monitor CBC q6h and transfuse for Hgb < 7 -C/w Protonix IVPB bid Hyperlipidemia -Unsure why patient is not on a statin -We will consider starting prior to discharge Rheumatoid arthritis -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
[2018-07-21 16:28] LABS: Hemoglobin A1C 5.6 % (4.0-6.0)
[2018-07-21 20:34] LABS: Basophils % (A) 0 %; Eosinophils # (A) 0.1 k/uL (0-0.7); Eosinophils % (A) 1 %; HCT 33.9 % (34.0-46.0); Lymphocytes # (A) 1.3 k/uL (1.0-4.8); Lymphocytes % (A) 13 %; MCH 28.7 pg (25.0-35.0); MCHC 32.6 g/dL (31.0-37.0); MCV 88.2 fL (80.0-100.0); Mean Platelet Volume 6.7; Monocytes # (A) 0.2 k/uL (0-1.0); Monocytes % (A) 2 %; Neutrophils # (A) 8.8 k/uL (1.3-7.7); Neutrophils % (A) 84 %; Platelet Count 402 k/uL (150-450); RBC 3.84 m/uL (3.80-5.40); RDW 14.4 % (11.5-15.5); WBC 10.4 k/uL (3.8-10.6)
[2018-07-22] MEDS: MORPHINE SULFATE 4 MG/ML SYRINGE IVP PRN ×5 (03:30→19:56)
[2018-07-22] MEDS: CARVEDILOL 6.25 MG TAB PO SCH ×2 (06:12→16:34)
[2018-07-22] MEDS: NICOTINE 14MG/24HR PATCH TRANSDERM SCH (07:50)
[2018-07-22] MEDS: AZITHROMYCIN 250 MG TAB PO SCH (07:50)
[2018-07-22] MEDS: PANTOPRAZOLE 40 MG/10 ML VIAL IVP SCH ×2 (07:50→19:56)
[2018-07-22] MEDS: predniSONE 20 MG TAB PO SCH (07:50)
[2018-07-22 08:05] LABS: Basophils % (A) 0 %; Eosinophils # (A) 0.1 k/uL (0-0.7); Eosinophils % (A) 1 %; HCT 34.9 % (34.0-46.0); HGB 11.8 gm/dL (11.4-16.0); Lymphocytes # (A) 3.2 k/uL (1.0-4.8); Lymphocytes % (A) 28 %; MCHC 33.9 g/dL (31.0-37.0); MCV 85.7 fL (80.0-100.0); Mean Platelet Volume 6.5; Monocytes # (A) 0.6 k/uL (0-1.0); Monocytes % (A) 6 %; Neutrophils # (A) 7.2 k/uL (1.3-7.7); Neutrophils % (A) 63 %; Platelet Count 419 k/uL (150-450); RBC 4.08 m/uL (3.80-5.40); RDW 14.2 % (11.5-15.5); WBC 11.4 k/uL (3.8-10.6)
[2018-07-22] MEDS: IPRATROPIUM-ALBUTEROL 3 ML NEB INHALATION SCH ×4 (08:22→20:45)
--- NOTE | 2018-07-22 10:46 | P.PN ---
Subjective Progress Note Date: 07/22/18 Principal diagnosis: UGIB Patient was seen and examined. No acute events overnight. EGD done yesterday, large clots seen with visible ulcer. Patient able to tolerate CLD this morning, no N/V, requesting more solid foods. No vomiting post procedure, passing gas but no BM either. She denies chest pain, SOB or palpitations. Continues to complain of cough productive of white sputum. Requesting to go home today. Objective - Vital Signs Vital signs: Vital Signs Temp 97.6 F 07/22/18 07:58 Pulse 88 07/22/18 08:34 Resp 17 07/22/18 08:00 BP 122/59 07/22/18 07:58 Pulse Ox 98 07/22/18 07:58 Intake & Output 07/21/18 07/22/18 07/22/18 18:59 06:59 18:59 Intake Total 1020 250 Balance 1020 250 Weight 72.575 kg 68.5 kg Intake: IV 300 10 Invasive Line 1 10 Oral 720 240 Other: Voiding Method Toilet Toilet Toilet # Voids 1 1 - Exam General: [non toxic], [no distress], [appears at stated age] Derm: [warm], [dry] Head: [atraumatic], [normocephalic], [symmetric] Eyes: [EOMI], [no lid lag], [anicteric sclera] Mouth: [no lip lesion], [mucus membranes moist] Cardiovascular: [S1S2 reg], [no murmur], [positive posterior tibial pulse bilateral], Lungs: [CTA bilateral], [no rhonchi, no rales] , [no accessory muscle use] Abdominal: [soft], [tenderness to palpation in the epigastric area with no rebound], [no guarding], [no appreciable organomegaly] Ext: [no gross muscle atrophy], [no edema], [no contractures] Neuro: [ CN II-XI grossly intact], [no focal neuro deficits] Psych: [Alert], [oriented], [appropriate affect] - Labs CBC & Chem 7: 07/22/18 07:31 07/18/18 23:49 Labs: Abnormal Lab Results - Last 24 Hours (Table) 07/21/18 07/21/18 07/22/18 Range/Units 14:06 20:17 07:31 WBC 11.4 H (3.8-10.6) k/uL RBC 3.58 L (3.80-5.40) m/uL Hgb 10.3 L 11.0 L (11.4-16.0) gm/dL Hct 31.7 L 33.9 L (34.0-46.0) % Neutrophils # 8.8 H (1.3-7.7) k/uL Microbiology - Last 24 Hours (Table) 07/20/18 08:25 Gram Stain - Final Sputum Sputum Culture - Final Enterobacter aerogenes 07/18/18 23:49 Blood Culture - Preliminary Blood No Growth after 72 hours Assessment and Plan Assessment: Assessment and Plan 1. Upper GI bleed: EGD 07/21 shows large clots in the fundus of the stomach, 3 cm deep gastric ulcer w/ visible vessel and 2 cm pyloric ulcer. Hemoglobin remaining stable since procedure, Hg 11.8 this morning. Reglan 5 mg IV Q6H PRN for N/V. Morphine PRN for pain. Protonix 40 mg IV BID. CLD and advance. FU H&H @ 2PM. FU GI recommendations 2. Asthma exacerbation: Mild and resolving. CXR negative. Continue DuoNeb scheduled/PRN, Z-pack 250 mg PO QD, Prednisone 40 mg PO QD. O2 per NC to maintain O2 sat > 92%. 3. Chest pain: Atypical, likely related to GI pathology. CXR and KUB negative. Troponin < 0.012 x 3, EKG showing S. tachycardia. Cardiology consulted - Echo shows EF 55-60% with LVH, Dobutamine stress echo negative. Morphine 4 mg IV Q4H PRN for pain. Nitrostat PRN. Telemetry monitoring. Cardiology recommends outPT FU in 2-[address] Valdivia. 4. Hypertension: BP 122/59. Continue Coreg 6.25 mg PO BID. Monitor vitals, adjust medications as necessary. 5. Leukocytosis: WBC 11.4. No fever or signs of infection. On Prednisone for RA. Continue to monitor. 6. Smoker: Nicotine patch and smoking cessation. 7. Hyperlipidemia: Lipid panel shows T. Chol 175, LDL 105, TG 176. Would start statin on DC. 8. Rheumatoid arthritis: Needs adequate outPT FU. 9. DVT/GI Prophylaxis: Protonix. SCD boots only. Patient is being treated for UGIB. Her Hg this morning has remained stable. She has a Hg pending for 2PM. She was previously treated for Asthma exacerbation, Z- pack for possible acute bronchitis. FU GI recommendations.
--- NOTE | 2018-07-22 11:46 | P.PN ---
Subjective Progress Note Date: 07/22/18 Principal diagnosis: Epigastric pain gastric and pyloric channel ulcer 58-year-old man with severe epigastric pain status post EGD yesterday with findings of 3 cm deep gastric ulcer with visible vessel status post Endo Clip placement. 2 cm superficial pyloric channel ulcer not bleeding. Feels well. Minimal epigastric pain. Some mild left lower back pain. No emesis hematemesis hematochezia or melena. Tolerating clear liquids requesting advancement. Hemoglobin stable 11.8. Objective - Vital Signs Vital signs: Vital Signs Temp 97.6 F 07/22/18 07:58 Pulse 88 07/22/18 08:34 Resp 17 07/22/18 08:00 BP 122/59 07/22/18 07:58 Pulse Ox 98 07/22/18 07:58 Intake & Output 07/21/18 07/22/18 07/22/18 18:59 06:59 18:59 Intake Total 1020 250 Balance 1020 250 Weight 72.575 kg 68.5 kg Intake: IV 300 10 Invasive Line 1 10 Oral 720 240 Other: Voiding Method Toilet Toilet Toilet # Voids 1 1 - Exam General appearance: The patient is alert, oriented, in no acute distress. HET: Head is normocephalic and atraumatic. Pupils are equal and reactive. Oropharynx is clear without lesions. Neck: Supple without lymphadenopathy. Trachea midline. Heart: S1 S2. Regular rate and rhythm. Lungs: No crackles or wheezes are heard. Abdomen: Soft, mild midepigastric pain, nondistended with bowel sounds. No peritoneal signs. No palpable organomegaly or masses. Extremities: Normal skin color and turgor. No cyanosis, rash, ulceration, clubbing, or edema. Radial and pedal pulses are 2/4 bilaterally. Neurological: No focal deficits. Strength and sensation are grossly intact. - Labs CBC & Chem 7: 07/22/18 07:31 07/18/18 23:49 Labs: Abnormal Lab Results - Last 24 Hours (Table) 07/21/18 07/21/18 07/22/18 Range/Units 14:06 20:17 07:31 WBC 11.4 H (3.8-10.6) k/uL RBC 3.58 L (3.80-5.40) m/uL Hgb 10.3 L 11.0 L (11.4-16.0) gm/dL Hct 31.7 L 33.9 L (34.0-46.0) % Neutrophils # 8.8 H (1.3-7.7) k/uL Microbiology - Last 24 Hours (Table) 07/20/18 08:25 Gram Stain - Final Sputum Sputum Culture - Final Enterobacter aerogenes 07/18/18 23:49 Blood Culture - Preliminary Blood No Growth after 72 hours Assessment and Plan (1) Upper GI bleed Current Visit: Yes Status: Acute Code(s): K92.2 - GASTROINTESTINAL HEMORRHAGE, UNSPECIFIED SNOMED Code(s): 41194739 (2) Gastric ulcer Current Visit: Yes Status: Acute Code(s): K25.9 - GASTRIC ULCER, UNSP ACUTE OR CHRONIC, W/O HEMOR OR PERF SNOMED Code(s): 950861989 (3) Pyloric channel ulcer Current Visit: Yes Status: Acute Code(s): K25.9 - GASTRIC ULCER, UNSP ACUTE OR CHRONIC, W/O HEMOR OR PERF SNOMED Code(s): 51059848 (4) Acute blood loss anemia Current Visit: Yes Status: Acute Code(s): D62 - ACUTE POSTHEMORRHAGIC ANEMIA SNOMED Code(s): 191970366 (5) Epigastric pain Current Visit: Yes Status: Acute Code(s): R10.13 - EPIGASTRIC PAIN SNOMED Code(s): 84734301 Plan: 1. Full liquid diet with ensure. CBC monitored. Continue Protonix 20 mg twice a day. We'll continue to follow. Assessment and plan a care discussed with Dr. Valdivia
[2018-07-22 15:49] LABS: Basophils % (A) 0 %; Eosinophils % (A) 0 %; HCT 35.2 % (34.0-46.0); HGB 11.8 gm/dL (11.4-16.0); Lymphocytes # (A) 1.4 k/uL (1.0-4.8); Lymphocytes % (A) 13 %; MCH 28.8 pg (25.0-35.0); MCHC 33.6 g/dL (31.0-37.0); MCV 85.8 fL (80.0-100.0); Mean Platelet Volume 6.4; Monocytes # (A) 0.3 k/uL (0-1.0); Monocytes % (A) 2 %; Neutrophils # (A) 8.8 k/uL (1.3-7.7); Neutrophils % (A) 83 %; Platelet Count 422 k/uL (150-450); RBC 4.09 m/uL (3.80-5.40); RDW 14.3 % (11.5-15.5); WBC 10.5 k/uL (3.8-10.6)
[2018-07-22] MEDS: MELATONIN 3 MG TABLET PO PRN (23:08)
[2018-07-23] MEDS: MORPHINE SULFATE 4 MG/ML SYRINGE IVP PRN ×2 (00:36→05:12)
[2018-07-23] MEDS: NICOTINE 14MG/24HR PATCH TRANSDERM SCH (06:09)
[2018-07-23] MEDS: CARVEDILOL 6.25 MG TAB PO SCH (06:09)
[2018-07-23 07:30] LABS: Basophils # (A) 0.1 k/uL (0-0.2); Basophils % (A) 0 %; Eosinophils # (A) 0.1 k/uL (0-0.7); Eosinophils % (A) 1 %; HCT 35.1 % (34.0-46.0); HGB 11.5 gm/dL (11.4-16.0); Lymphocytes # (A) 3.3 k/uL (1.0-4.8); Lymphocytes % (A) 26 %; MCH 28.8 pg (25.0-35.0); MCHC 32.7 g/dL (31.0-37.0); MCV 88.1 fL (80.0-100.0); Mean Platelet Volume 6.7; Monocytes # (A) 0.6 k/uL (0-1.0); Monocytes % (A) 5 %; Neutrophils # (A) 8.5 k/uL (1.3-7.7); Neutrophils % (A) 67 %; Platelet Count 409 k/uL (150-450); RBC 3.99 m/uL (3.80-5.40); RDW 14.3 % (11.5-15.5); WBC 12.7 k/uL (3.8-10.6)
[2018-07-23 07:33] VITALS: BP 151/76; RESP 16; TEMP 98.1
--- NOTE | 2018-07-23 08:03 | P.PN ---
Subjective Progress Note Date: 07/23/18 Principal diagnosis: GI bleed patient was seen and examined. No acute events overnight. No bowel movement yet. She was able to tolerate breakfast this morning. Patient reports mild epigastric pain with meals this morning. Mild nausea but no vomiting. Hemoglobin has remained stable. Objective - Vital Signs Vital signs: Vital Signs Temp 98.1 F 07/23/18 07:28 Pulse 98 07/23/18 07:28 Resp 16 07/23/18 07:28 BP 151/76 07/23/18 07:28 Pulse Ox 98 07/23/18 07:28 Intake & Output 07/22/18 07/23/18 07/23/18 18:59 06:59 18:59 Intake Total 2270 100 360 Balance 2270 100 360 Weight 68.9 kg Intake: Oral 2270 100 360 Other: Voiding Method Toilet Toilet # Voids 1 1 - Exam General: [non toxic], [no distress], [appears at stated age] Derm: [warm], [dry] Head: [atraumatic], [normocephalic], [symmetric] Eyes: [EOMI], [no lid lag], [anicteric sclera] Mouth: [no lip lesion], [mucus membranes moist] Cardiovascular: [S1S2 reg], [no murmur], [positive posterior tibial pulse bilateral], Lungs: [CTA bilateral], [no rhonchi, no rales] , [no accessory muscle use] Abdominal: [soft], [tenderness to palpation in the epigastric area with no rebound], [no guarding], [no appreciable organomegaly] Ext: [no gross muscle atrophy], [no edema], [no contractures] Neuro: [ CN II-XI grossly intact], [no focal neuro deficits] Psych: [Alert], [oriented], [appropriate affect] - Labs CBC & Chem 7: 07/23/18 06:54 07/18/18 23:49 Labs: Abnormal Lab Results - Last 24 Hours (Table) 07/22/18 07/22/18 07/23/18 Range/Units 07:31 15:23 06:54 WBC 11.4 H 12.7 H (3.8-10.6) k/uL Neutrophils # 8.8 H 8.5 H (1.3-7.7) k/uL Microbiology - Last 24 Hours (Table) 07/18/18 23:49 Blood Culture - Preliminary Blood No Growth after 96 hours 07/20/18 08:25 Gram Stain - Final Sputum Sputum Culture - Final Enterobacter aerogenes Assessment and Plan Assessment: Assessment and Plan 1. Gastric ulcer: History of chronic Ibuprofen use for chronic pain control of RA symptoms. EGD 07/21 shows large clots in the fundus of the stomach, 3 cm deep gastric ulcer w/ visible vessel and 2 cm pyloric ulcer. Hemoglobin remaining stable since procedure, Hg 11.5 this morning. Reglan 5 mg IV Q6H PRN for N/V. Morphine PRN for pain. Protonix 40 mg IV BID. GI soft and advance. FU GI recommendations 2. Asthma exacerbation: Mild and resolving. CXR negative. Continue DuoNeb scheduled/PRN, Z-pack 250 mg PO QD, Prednisone 40 mg PO QD. O2 per NC to maintain O2 sat > 92%. 3. Chest pain: Atypical, likely related to GI pathology. CXR and KUB negative. Troponin < 0.012 x 3, EKG showing S. tachycardia. Cardiology consulted - Echo shows EF 55-60% with LVH, Dobutamine stress echo negative. Morphine 4 mg IV Q4H PRN for pain. Nitrostat PRN. Telemetry monitoring. Cardiology recommends outPT FU in 2-[address] Valdivia. 4. Hypertension: BP 151/76. Continue Coreg 6.25 mg PO BID. Monitor vitals, adjust medications as necessary. 5. Leukocytosis: WBC 12.7. No fever or signs of infection. On Prednisone for Asthma. Continue to monitor. 6. Smoker: Nicotine patch and smoking cessation. 7. Hyperlipidemia: Lipid panel shows T. Chol 175, LDL 105, TG 176. Would start statin on DC. 8. Rheumatoid arthritis: Needs adequate outPT FU. 9. DVT/GI Prophylaxis: Protonix. SCD boots only. Patient is being treated for UGIB. Her Hg this morning has remained stable. She was previously treated for Asthma exacerbation, Z-pack for possible acute bronchitis. Able to tolerate GI soft diet, will follow GI recommendations. Possible DC today.
[2018-07-23] MEDS: AZITHROMYCIN 250 MG TAB PO SCH (08:44)
[2018-07-23] MEDS: predniSONE 20 MG TAB PO SCH (08:44)
[2018-07-23] MEDS: PANTOPRAZOLE 40 MG/10 ML VIAL IVP SCH (08:44)
[2018-07-23] MEDS: IPRATROPIUM-ALBUTEROL 3 ML NEB INHALATION SCH (08:50)
[2018-07-23 08:51] VITALS: PULSE 96
--- NOTE | 2018-07-23 11:14 | P.PN ---
Subjective Progress Note Date: 07/23/18 Principal diagnosis: Epigastric pain gastric and pyloric channel ulcer 58-year-old man with severe epigastric pain status post EGD with findings of 3 cm deep gastric ulcer with visible vessel status post Endo Clip placement. 2 cm superficial pyloric channel ulcer not bleeding. Feels well. Minimal epigastric pain. Some mild left lower back pain. No emesis hematemesis hematochezia or melena. Tolerating soft GI diet. Hemoglobin stable 11.5. Objective - Vital Signs Vital signs: Vital Signs Temp 98.1 F 07/23/18 07:28 Pulse 96 07/23/18 09:00 Resp 16 07/23/18 07:28 BP 151/76 07/23/18 07:28 Pulse Ox 98 07/23/18 07:28 Intake & Output 07/22/18 07/23/18 07/23/18 18:59 06:59 18:59 Intake Total 2270 100 360 Balance 2270 100 360 Weight 68.9 kg Intake: Oral 2270 100 360 Other: Voiding Method Toilet Toilet # Voids 1 1 - Exam General appearance: The patient is alert, oriented, in no acute distress. HET: Head is normocephalic and atraumatic. Pupils are equal and reactive. Oropharynx is clear without lesions. Neck: Supple without lymphadenopathy. Trachea midline. Heart: S1 S2. Regular rate and rhythm. Lungs: No crackles or wheezes are heard. Abdomen: Soft, mild midepigastric pain, nondistended with bowel sounds. No peritoneal signs. No palpable organomegaly or masses. Extremities: Normal skin color and turgor. No cyanosis, rash, ulceration, clubbing, or edema. Radial and pedal pulses are 2/4 bilaterally. Neurological: No focal deficits. Strength and sensation are grossly intact. - Labs CBC & Chem 7: 07/23/18 06:54 07/18/18 23:49 Labs: Abnormal Lab Results - Last 24 Hours (Table) 07/22/18 07/23/18 Range/Units 15:23 06:54 WBC 12.7 H (3.8-10.6) k/uL Neutrophils # 8.8 H 8.5 H (1.3-7.7) k/uL Microbiology - Last 24 Hours (Table) 07/18/18 23:49 Blood Culture - Preliminary Blood No Growth after 96 hours 07/20/18 08:25 Gram Stain - Final Sputum Sputum Culture - Final Enterobacter aerogenes Assessment and Plan (1) Upper GI bleed Current Visit: Yes Status: Acute Code(s): K92.2 - GASTROINTESTINAL HEMORRHAGE, UNSPECIFIED SNOMED Code(s): 64592579 (2) Gastric ulcer Current Visit: Yes Status: Acute Code(s): K25.9 - GASTRIC ULCER, UNSP ACUTE OR CHRONIC, W/O HEMOR OR PERF SNOMED Code(s): 081442706 (3) Pyloric channel ulcer Current Visit: Yes Status: Acute Code(s): K25.9 - GASTRIC ULCER, UNSP ACUTE OR CHRONIC, W/O HEMOR OR PERF SNOMED Code(s): 33225564 (4) Acute blood loss anemia Current Visit: Yes Status: Acute Code(s): D62 - ACUTE POSTHEMORRHAGIC ANEMIA SNOMED Code(s): 467808524 (5) Epigastric pain Current Visit: Yes Status: Acute Code(s): R10.13 - EPIGASTRIC PAIN SNOMED Code(s): 87509147 Plan: 1. Soft diet. Avoid NSAIDs or aspirin alcohol. PPI 20 mg twice daily. Agreeable for discharge. Return office in 2-3 weeks for reevaluation. Assessment and plan a care discussed with Dr. Valdivia
--- NOTE | 2018-07-27 11:26 | P.DS ---
Providers Date of admission: 07/19/18 02:56 Expected date of discharge: 07/23/18 Attending physician: Trey Mcintosh MD Consults: 07/19/18 03:30 Consult Physician Routine Consulting Provider: Alan Hall Consult Reason/Comments: Chest pain Do you want consulting provider notified?: Yes, Notify in am Primary care physician: Stated None - Discharge Diagnosis(es) (1) Hypertension Status: Acute (2) Nicotine dependence Status: Acute (3) Hyperlipidemia Status: Acute (4) Rheumatoid arthritis Status: Acute (5) Atypical chest pain Status: Acute (6) Gastric ulcer Status: Acute (7) Leukocytosis Status: Acute (8) Mild asthma exacerbation Status: Acute Hospital Course: 58-year-old female with a history of heart failure of unknown type, HTN, dyslipidemia, RA, asthma presents to the emergency department for multiple complaints. Patient states she has had chest pain and pressure 1.5 weeks. She states that each day seems to be getting worse. She denies any radiating pain. Most recently earlier today the patient reported feeling like to await was sitting on her chest, described as pressure substernally, with associated shortness of breath nausea, lightheadedness and presyncope earlier today. She also reports a cough and chest congestion over the last 2 weeks that has been productive clear sputum. She also states that she has epigastric and left upper quadrant pain that is worsening along with the chest pain. Patient states this is worse when she lies down. She states she is a smoker but has not been diagnosed with COPD. She does have a history of asthma. With regard to her epigastric pain, this was thought to be secondary to chronic ibuprofen use. Abdominal x-ray was negative She underwent EGD on 07/21/2018 which showed large clots in the fundus of the stomach, 3 cm deep gastric ulcer with a visible vessel and 2 cm pyloric ulcer. She was transferred to [facility] due to the blood clots that were visualized and monitored for 2 days after the procedure. Her hemoglobin remained stable until discharge. She was advised against any NSAID use, told to take Tylenol as needed for pain. With regard to her asthma exacerbation, chest x-ray was negative. She was continued on duonebulization treatments and started on prednisone. She was started on azithromycin for possible bacterial bronchitis. With regard to her chest pain, this was thought to be atypical likely related to her GI pathology. Initial troponin was less than 0.0123, with EKG showing sinus tachycardia. Cardiology was consulted at this time and recommended obtaining an echocardiogram which showed an ejection fraction of 55-60% with LVH. Stress test was then ordered which was negative. She was advised by cardiology to follow-up outpatient in 2-3 weeks. Her home medications were otherwise resumed for her hypertension, nicotine dependence, hyperlipidemia. Patient was advised to follow-up with her PCP within 1-2 days of discharge. She was advised that she should follow-up with the director of field service for her rheumatoid arthritis. She was advised to follow-up with gastroenterology and cardiology with the appropriate appointments that were given to her prior to discharge. This complex discharge took greater than 30 minutes. Pertinent Studies: EGD Echo Stress test CXR KUB Procedures: EGD Patient Condition at Discharge: Good Plan - Discharge Summary Discharge Rx Participant: No New Discharge Prescriptions: New Azithromycin [Zithromax] 250 mg PO DAILY #2 tab Carvedilol [Coreg] 6.25 mg PO BID-W/MEALS #60 tab Pantoprazole Sodium [Protonix] 20 mg PO AC-BID #60 tablet. predniSONE 40 mg PO DAILY #4 tab Continue Calcium Carbonate [Tums] 500 mg PO TID Acetaminophen [Tylenol] 1,500 mg PO Q4-6H PRN PRN Reason: Pain Or Fever > 100.5 Albuterol Inhaler [Ventolin Hfa Inhaler] 1 - 2 puff INHALATION RT-Q6H PRN #1 inhaler PRN Reason: Shortness Of Breath Discontinued Ranitidine HCl [Zantac] 75 mg PO DAILY PRN PRN Reason: Heartburn Ibuprofen [Motrin Ib] 800 mg PO Q6H PRN PRN Reason: Pain Discharge Medication List Acetaminophen [Tylenol] 1,500 mg PO Q4-6H PRN 07/19/18 [History] Calcium Carbonate [Tums] 500 mg PO TID 07/19/18 [History] Albuterol Inhaler [Ventolin Hfa Inhaler] 1 - 2 puff INHALATION RT-Q6H PRN #1 inhaler 07/23/18 [Rx] Azithromycin [Zithromax] 250 mg PO DAILY #2 tab 07/23/18 [Rx] Carvedilol [Coreg] 6.25 mg PO BID-W/MEALS #60 tab 07/23/18 [Rx] Pantoprazole Sodium [Protonix] 20 mg PO AC-BID #60 tablet. 07/23/18 [Rx] predniSONE 40 mg PO DAILY #4 tab 07/23/18 [Rx] Follow up Appointment(s)/Referral(s): Armando Fierro MD [REFERRING] - 07/29/18 2:20 pm Carley Valdivia MD [STAFF PHYSICIAN] - 08/14/18 3:30 pm Brooks Valdivia MD [STAFF PHYSICIAN] - 08/07/18 4:15 pm Patient Instructions/Handouts: Gastrointestinal Bleeding (DC), Diet for Stomach Ulcers and Gastritis (ED) Activity/Diet/Wound Care/Special Instructions: Diet: GI soft Please follow-up with your primary care provider within 1-2 days of discharge. Please follow-up with your instrument shop supervisor with the appointment given to you. Please follow-up with your oil change technician with the appointment given to you. Please take all medications as advised. Please avoid medications in the NSAID class, such as Ibuprofen or Naproxen. Discharge Disposition: HOME SELF-CARE
== END 2018-07-23 10:20 | disposition home or self-care (01) ==
LOC: EC 22:26 → 3SUR 07-19 02:56 → 3OBS 07-19 13:23 → 6SEL 07-21 17:22
PROVIDERS: ADMIT Family Medicine; ATTEND Family Medicine
DX: R07.89 Other chest pain (principal); R10.13 Epigastric pain; R10.12 Left upper quadrant pain; J45.901 Unspecified asthma with (acute) exacerbation; K25.4 Chronic or unspecified gastric ulcer with hemorrhage; M06.9 Rheumatoid arthritis, unspecified; D72.829 Elevated white blood cell count, unspecified; I11.0 Hypertensive heart disease with heart failure; I50.9 Heart failure, unspecified; E78.5 Hyperlipidemia, unspecified; D62 Acute posthemorrhagic anemia; F17.200 Nicotine dependence, unspecified, uncomplicated; R11.2 Nausea with vomiting, unspecified; R09.89 Other specified symptoms and signs involving the circulatory and respiratory systems; R42 Dizziness and giddiness; R55 Syncope and collapse; M54.5 Low back pain; Z79.1 Long term (current) use of non-steroidal anti-inflammatories (NSAID)
CPT/HCPCS: 99285; 96361 ×4; 96374 ×2; 96376 ×3; 96375; 36415; 94640 ×9; 94760; 93005; 93306; 93351; 88305; 80061; 80053; 82550 ×2; 82553 ×2; 83735; 84484 ×2; 85025 ×4; 85027; 85610; 85730; 81001; 88342; 87040; 87070; 87205; 87077; 87186; 83036; 71046; 74019; 43239; 43255; G0378 ×6; S4990 ×5; J1250; J2270 ×5; J2765 ×2; J2001; J1885; J2704; J7512 ×5; C9113 ×3

== ENCOUNTER 2018-12-12 08:34 | Day surgery (SDC) | payer MEDICARE, OTHER ==
[2018-12-10 13:15] VITALS: BMI 22.2
[~2018-12-12 08:34] MED LIST: LACTATED RINGERS 1,000 ML IV SCH
[2018-12-12 09:18] VITALS: RESP 16; TEMP 97.6
[2018-12-12] MEDS ORDERED: LIDOCAINE 1% 20 ML VIAL (10MG/ML) FOR IV START INTRADERMA ONE (09:26)
[2018-12-12] MEDS ORDERED: LIDOCAINE 1% INJ 10MG/ML (20 ML MDV) ONE (10:02)
[2018-12-12] MEDS ORDERED: PROPOFOL 10 MG/ML 20 ML VIAL IV ONE (10:02)
--- NOTE | 2018-12-12 10:12 | P.PCN ---
Date of Procedure: 12/12/18 Procedure(s) Performed: BRIEF HISTORY: Patient is a 58-year-old, pleasant, , white female scheduled for an upper endoscopy as a part of evaluation of epigastric pain and intermittent nausea vomiting. She had an upper endoscopy in July 2018 and was noted to have a 3 cm antral ulcer with active bleeding. She since has been on Protonix 40 mg daily and still has intermittent epigastric pain and nausea vomiting.. PROCEDURE PERFORMED: Esophagogastroduodenoscopy with biopsy . PREOPERATIVE DIAGNOSIS: Follow-up gastric ulcer, intermittent epigastric pain/ nausea. IV sedation per anesthesia. PROCEDURE: After informed consent was obtained, the patient was brought into the endoscopy unit. IV sedation was administered by Anesthesia under continuous monitoring. Initially the Olympus GIF-140 video endoscope was inserted into the mouth. Esophagus intubated without any difficulty. It was gradually advanced into the stomach and duodenum and carefully examined. The bulb and the second part of the duodenum appeared normal. The scope at this time was withdrawn to the stomach, adequately insufflated with air, and upon careful examination, mucosa of the antrum had mild gastritis and the previously noted antral ulcer has completely healed. Biopsies were done from the antrum. The body, cardia and the fundus appeared normal. The scope was withdrawn into the esophagus. The GE junction was located at 39 cm from the incisors. The esophagus appeared normal. There were no erosions or ulcerations seen and the patient tolerated the procedure well. IMPRESSION: 1. Completely healed antral ulcer. 2. Mild antral gastritis. RECOMMENDATIONS: The findings of this examination were discussed with the patient as well as her family. She was advised to stop the Protonix and avoid NSAIDs. She has recurrent symptoms she will follow up in office.
[2018-12-12 10:30] VITALS: BP 127/85; PULSE 88
== END 2018-12-12 10:46 | disposition home or self-care (01) ==
LOC: ORWHC2ENDO 08:34
PROVIDERS: ATTEND Internal Medicine Gastroenterology
DX: K29.50 Unspecified chronic gastritis without bleeding (principal); B96.81 Helicobacter pylori [H. pylori] as the cause of diseases classified elsewhere; K21.9 Gastro-esophageal reflux disease without esophagitis; J45.909 Unspecified asthma, uncomplicated; F17.200 Nicotine dependence, unspecified, uncomplicated; M06.9 Rheumatoid arthritis, unspecified; F41.9 Anxiety disorder, unspecified; F32.9 Major depressive disorder, single episode, unspecified; I50.9 Heart failure, unspecified; Z79.891 Long term (current) use of opiate analgesic; Z79.899 Other long term (current) drug therapy
CPT/HCPCS: 88305; 88342; 43239; J2001; J2704

== ENCOUNTER 2020-03-16 14:25 | Emergency (ER) | payer MEDICARE ==
[2020-03-16 14:43] VITALS: TEMP 98.3
[2020-03-16 14:59] VITALS: BP 146/89; PULSE 86; RESP 16
[2020-03-16] MEDS ORDERED: KETOROLAC 30 MG/ML 1 ML VIAL IM STA (15:08)
[2020-03-16] MEDS ORDERED: ACET/COD 300 MG/30 MG STARTER PACK 6 TAB BTL PO STA ×2 (15:08→16:55)
--- NOTE | 2020-03-16 15:36 | XR ---
EXAMINATION TYPE: XR ankle complete RT DATE OF EXAM: 03/16/2020 CLINICAL HISTORY: Pain and swelling. TECHNIQUE: Frontal, lateral and oblique images of the right ankle are obtained. COMPARISON: None. FINDINGS: Demineralization is present. There is no acute fracture/dislocation evident in the right a nkle. 1 to 2 mm well-defined round ossific fragment from the lateral malleolus could reflect a loose body from old trauma. The ankle mortise appears within normal limits. The overlying soft tissue jimbo ears unremarkable. IMPRESSION: There is no acute fracture or dislocation in the right ankle.
--- NOTE | 2020-03-16 16:06 | ED ---
Lower Extremity Injury HPI - General Chief Complaint: Extremity Injury, Lower Stated Complaint: R Leg Pain Time Seen by Provider: 03/16/20 14:49 Source: patient Mode of arrival: wheelchair Limitations: no limitations - History of Present Illness Initial Comments: 59-year-old female patient presents to the emergency department today for evaluation of right ankle pain and discomfort. Patient states she's had pain in the ankle for the last 2 weeks. Patient states the area is swollen. States she has pain at rest and with ambulation. States the pain worsens significantly when she bears weight on the leg. Denies any known injury. Denies any redness, fever, or chills. Denies any history of similar symptoms. Denies any history of gout or DVT. Denies numbness or tingling to the foot. Patient denies any headache, neck pain, back pain, chest pain, shortness of breath, dizziness, weakness, abdominal pain, nausea, vomiting, or difficulties with bowel movements or urination. - Related Data Home Medications Medication Instructions Recorded Confirmed Acetaminophen [Tylenol] 1,500 mg PO Q4-6H PRN 07/19/18 12/12/18 Calcium Carbonate [Tums] 500 mg PO TID 07/19/18 12/12/18 Previous Rx's Medication Instructions Recorded Albuterol Inhaler (Mhu) [Ventolin 1 - 2 puff INHALATION RT-Q6H PRN 07/23/18 Hfa Inhaler (Mhu)] #1 inhaler Carvedilol [Coreg] 6.25 mg PO BID-W/MEALS #60 tab 07/23/18 Pantoprazole Sodium [Protonix] 20 mg PO AC-BID #60 tablet.dr 07/23/18 predniSONE 50 mg PO DAILY #5 tablet 03/16/20 Allergies Allergy/AdvReac Type Severity Reaction Status Date / Time No Known Allergies Allergy Verified 03/16/20 14:43 Review of Systems ROS Statement: Those systems with pertinent positive or pertinent negative responses have been documented in the HPI. ROS Other: All systems not noted in ROS Statement are negative. Past Medical History Past Medical History: Asthma, Heart Failure, GERD/Reflux, Rheumatoid Arthritis (RA) Additional Past Medical History / Comment(s): BACK PAIN History of Any Multi-Drug Resistant Organisms: None Reported Past Surgical History: Adenoidectomy, Back Surgery, Hysterectomy, Tonsillectomy, Tubal Ligation Additional Past Surgical History / Comment(s): LEFT BUNIONECTOMY, LEFT WRIST SURGERY,cervical neck surgery Past Anesthesia/Blood Transfusion Reactions: No Reported Reaction Additional Past Anesthesia/Blood Transfusion Reaction / Comment(s): no hx blood transfusion Past Psychological History: Anxiety, Depression Smoking Status: Current every day smoker Past Alcohol Use History: Occasional Past Drug Use History: None Reported - Past Family History Father Family Medical History: Cancer, Hypertension Additional Family Medical History / Comment(s): "black lung" Mother Family Medical History: Hypertension Brother(s) Family Medical History: No Reported History Sister(s) Family Medical History: No Reported History Son(s) Family Medical History: Asthma Daughter(s) Family Medical History: No Reported History General Exam Limitations: no limitations General appearance: alert, in no apparent distress, other (This is a well- developed, well-nourished adult female patient in no acute distress. Vital signs upon presentation are temperature 98.3F, pulse 97, respirations 18, blood pressure 121/74, pulse ox 98% on room air) Eye exam: Present: normal appearance, PERRL, EOMI. Absent: scleral icterus, conjunctival injection, periorbital swelling ENT exam: Present: normal exam, normal oropharynx, mucous membranes moist Respiratory exam: Present: normal lung sounds bilaterally. Absent: respiratory distress, wheezes, rales, rhonchi, stridor Cardiovascular Exam: Present: regular rate, normal rhythm, normal heart sounds. Absent: systolic murmur, diastolic murmur, rubs, gallop, clicks Extremities exam: Present: normal inspection, full ROM, tenderness (right anterior ankle), normal capillary refill, other (There is soft tissue swelling and tenderness over the right ankle. Skin is pink, warm, dry. Cap refills less than 3 seconds. Pedal and posttibial pulses are 2+ and equal bilaterally.). Absent: pedal edema, joint swelling, calf tenderness Neurological exam: Present: alert, oriented X3, CN II-XII intact Psychiatric exam: Present: normal affect, normal mood Skin exam: Present: warm, dry, intact, normal color. Absent: rash Course Vital Signs 03/16/20 03/16/20 14:39 14:54 Temperature 98.3 F Pulse Rate 97 86 Respiratory 18 16 Rate Blood Pressure 121/74 146/89 O2 Sat by Pulse 98 99 Oximetry Medical Decision Making - Medical Decision Making 59-year-old female patient presents to the emergency department today for evaluation of right ankle pain and swelling. Physical examination did reveal swelling surrounding the right ankle. No erythema or warmth. Patient states symptoms have been present for the last 2 weeks. She is afebrile normal vital signs. X-ray negative. Ultrasound of the right lower extremity was negative. We did discuss gout as a possible cause for her symptoms. We'll put her on steroids. She is instructed take a full stomach. She is instructed to follow- up with orthopedic specialty for further evaluation as soon as possible. Return parameters were discussed in detail. She verbalizes understanding and agrees with this plan. - Radiology Data Radiology results: report reviewed, image reviewed X-ray of the right ankle is obtained. Report was reviewed in its entirety. Impression by Dr. Bhardwaj shows no acute fracture dislocation the right ankle. Ultrasound of the right lower extremity was obtained. Report was reviewed in its entirety. Impression by Dr. Curry shows no evidence for DVT within the right lower extremity image from the groin to the upper calf. Disposition Clinical Impression: Gout of right ankle Disposition: HOME SELF-CARE Condition: Good Instructions (If sedation given, give patient instructions): Low Purine Diet (ED), Gout (ED) Additional Instructions: Take medication as directed. Take steroid with food only. Follow up with the media services specialist for further evaluation as soon as possible. Return to the emergency department for any new, worsening, or concerning symptoms. Prescriptions: predniSONE 50 mg PO DAILY #5 tablet Is patient prescribed a controlled substance at d/c from ED?: No Referrals: Armando Fierro MD [Primary Care Provider] - 1-2 days Praveen Macias MD [STAFF PHYSICIAN] - 1-2 days Time of Disposition: 16:48
--- NOTE | 2020-03-16 16:32 | US ---
EXAMINATION TYPE: US venous doppler duplex LE RT DATE OF EXAM: 03/16/2020 4:11 PM COMPARISON: NONE CLINICAL HISTORY: 59-year-old female Swelling, pain. SIDE PERFORMED: Right TECHNIQUE: The lower extremity deep venous system is examined utilizing real time linear array sonog stephy with graded compression, doppler sonography and color-flow sonography. FINDINGS: VESSELS IMAGED: External Iliac Vein (EIV) Common Femoral Vein Deep Femoral Vein Greater Saphenous Vein * Femoral Vein Popliteal Vein Small Saphenous Vein * Proximal Calf Veins (* superficial vessels) Right Leg: Negative for DVT IMPRESSION: No evidence for DVT within the right lower extremity imaged from the groin to the upper calf.
[2020-03-16] MEDS ORDERED: methylPREDNISolone SOD SUCCI 125 MG/2 ML VIAL IM STA (16:43)
== END 2020-03-16 17:18 | disposition home or self-care (01) ==
LOC: EC 14:25
DX: M10.9 Gout, unspecified (principal); M06.9 Rheumatoid arthritis, unspecified; F17.200 Nicotine dependence, unspecified, uncomplicated; Z79.899 Other long term (current) drug therapy; Z98.890 Other specified postprocedural states
CPT/HCPCS: 73610; 93971; 99284; 96372 ×2; J2930; J1885

== ENCOUNTER 2020-03-20 19:06 | Inpatient (IN) | payer MEDICARE ==
[2020-03-20] MEDS ORDERED: VANCOMYCIN IV PER PHARMACY 1 EACH MISC MISCELLANE PRN (19:22)
[2020-03-20] MEDS ORDERED: ACETAMINOPHEN TAB 500 MG TAB PO STA (19:22)
[2020-03-20] MEDS ORDERED: ONDANSETRON 4 MG/2 ML VIAL IVP STA (19:23)
[2020-03-20] MEDS ORDERED: HYDROmorphone 0.5 MG/0.5 ML SYRINGE IVP STA (19:23)
[2020-03-20] MEDS ORDERED: KETOROLAC 30 MG/ML 1 ML VIAL IVP STA (19:23)
--- NOTE | 2020-03-20 19:37 | ED ---
General Adult HPI - General Chief complaint: Extremity Injury, Lower Stated complaint: Red line on leg Time Seen by Provider: 03/20/20 19:14 Source: patient Mode of arrival: ambulatory Limitations: no limitations - History of Present Illness Initial comments: 59 year-old female patient presents to the emergency department for increased right ankle pain, redness, and swelling. Patient states that she started to have pain to the right ankle about two weeks ago. She denies injury. She was seen and evaluated in the ED two days ago. I evaluated her myself, she had no significant erythema over the joint, no fever, and was extremely tender. Patient did have US and XR that day which were unremarkable. She did admit to drinking beer frequently so she was diagnosed with gout and treated as such. Patient returns today because her pain has worsened and she noticed a red line starting to extend up her leg. Patient is also reporting infection to her right little toe, states that she has a small wound on her toe which has now started to turn red and drain pus. Patient state she has been getting frequent infections around her nails as well. She denies any known fever. No new injury to the ankle. Denies history of diabetes. Patient denies any recent rash, cough, shortness of breath, chest pain, abdominal pain, nausea, vomiting, diarrhea, constipation, back pain, numbness, tingling, dizziness, weakness, hematuria, dysuria, urinary urgency, urinary frequency, headache, visual changes, or any other complaints. - Related Data Previous Rx's Medication Instructions Recorded predniSONE 50 mg PO DAILY #5 tablet 03/16/20 Allergies Allergy/AdvReac Type Severity Reaction Status Date / Time No Known Allergies Allergy Verified 03/20/20 22:10 Review of Systems ROS Statement: Those systems with pertinent positive or pertinent negative responses have been documented in the HPI. ROS Other: All systems not noted in ROS Statement are negative. Past Medical History Past Medical History: Asthma, Heart Failure, GERD/Reflux, Rheumatoid Arthritis (RA) Additional Past Medical History / Comment(s): BACK PAIN, History of Any Multi-Drug Resistant Organisms: None Reported Past Surgical History: Adenoidectomy, Back Surgery, Hysterectomy, Tonsillectomy, Tubal Ligation Additional Past Surgical History / Comment(s): LEFT BUNIONECTOMY, LEFT WRIST SURGERY,cervical neck surgery Past Anesthesia/Blood Transfusion Reactions: No Reported Reaction Additional Past Anesthesia/Blood Transfusion Reaction / Comment(s): no hx blood transfusion Past Psychological History: Anxiety, Depression Smoking Status: Current every day smoker Past Alcohol Use History: Occasional Past Drug Use History: None Reported - Past Family History Father Family Medical History: Cancer, Hypertension Additional Family Medical History / Comment(s): "black lung" Mother Family Medical History: Hypertension Brother(s) Family Medical History: No Reported History Sister(s) Family Medical History: No Reported History Son(s) Family Medical History: Asthma Daughter(s) Family Medical History: No Reported History General Exam Limitations: no limitations General appearance: alert, in no apparent distress, other (This is a well- developed, well-nourished adult female patient in mild distress related to pain. Vital signs upon presentation are temperature 100.6F oral, pulse 101, respirations 18, blood pressure 104/66, pulse ox 96% on room air.) Eye exam: Present: normal appearance, PERRL, EOMI. Absent: scleral icterus, c onjunctival injection, periorbital swelling ENT exam: Present: normal exam, normal oropharynx, mucous membranes moist Respiratory exam: Present: normal lung sounds bilaterally. Absent: respiratory distress, wheezes, rales, rhonchi, stridor Cardiovascular Exam: Present: normal rhythm, tachycardia, normal heart sounds. Absent: systolic murmur, diastolic murmur, rubs, gallop, clicks GI/Abdominal exam: Present: soft, normal bowel sounds. Absent: distended, tenderness, guarding, rebound, rigid Extremities exam: Present: full ROM, tenderness (Left ankle), normal capillary refill, other (There is swelling, mild erythema, and tendnerness over the left ankle. There is red streaking up the leg to about mid calf consistent with lymphangitis. There is wound to the left little toe with surrounding erythema and swelling. Skin is otherwise pink, warm, dry. Cap refills less than 3 seconds. Pedal and posttibial pulses 2+ and equal bilaterally.). Absent: normal inspection, pedal edema, joint swelling, calf tenderness Neurological exam: Present: alert, oriented X3, CN II-XII intact Psychiatric exam: Present: normal affect, normal mood Skin exam: Present: warm, dry, intact, normal color. Absent: rash Course Vital Signs 0603/20/20 03/20/20 19:08 19:22 22:40 Temperature 99.4 F 100.6 F H 98.0 F Pulse Rate 101 H 85 Respiratory 18 18 Rate Blood Pressure 104/66 106/62 O2 Sat by Pulse 96 98 Oximetry Medical Decision Making - Medical Decision Making 59-year-old female patient presented to the emergency department today for evaluation of right ankle pain, swelling, redness. Physical examination did reveal edema, erythema and tenderness over the right ankle circumferentially. Patient did have red streaking up the right leg consistent with lymphangitis. S he was febrile upon arrival at 100.6F. Labs reviewed and did reveal elevated white blood cell count at 11.8, elevated ESR at 71, Elevated CRP at 236.6. Tib- fib x-ray was negative. Patient was seen and evaluated 2 days ago and did have negative venous Doppler and ankle x-ray. She'll be admitted to the hospital for cellulitis, we'll start vancomycin and Rocephin. We'll provide pain management. Patient is agreeable with this plan. - Lab Data Result diagrams: 03/20/20 19:50 03/20/20 19:50 Lab Results 03/20/20 03/20/20 03/20/20 Range/Units 19:50 19:50 19:50 WBC 11.8 H (3.8-10.6) k/uL RBC 4.29 (3.80-5.40) m/uL Hgb 12.8 (11.4-16.0) gm/dL Hct 39.9 (34.0-46.0) % MCV 93.0 (80.0-100.0) fL MCH 29.9 (25.0-35.0) pg MCHC 32.2 (31.0-37.0) g/dL RDW 13.4 (11.5-15.5) % Plt Count 378 (150-450) k/uL Neutrophils % 75 % Lymphocytes % 16 % Monocytes % 5 % Eosinophils % 3 % Basophils % 1 % Neutrophils # 8.8 H (1.3-7.7) k/uL Lymphocytes # 1.9 (1.0-4.8) k/uL Monocytes # 0.6 (0-1.0) k/uL Eosinophils # 0.3 (0-0.7) k/uL Basophils # 0.1 (0-0.2) k/uL ESR 71 H (0-20) mm/hr PT 9.5 (9.0-12.0) sec INR 0.9 (<1.2) APTT 24.6 (22.0-30.0) sec Sodium 138 (137-145) mmol/L Potassium 4.3 (3.5-5.1) mmol/L Chloride 102 (98-107) mmol/L Carbon Dioxide 27 (22-30) mmol/L Anion Gap 9 mmol/L BUN 14 (7-17) mg/dL Creatinine 0.73 (0.52-1.04) mg/dL Est GFR (CKD-EPI)AfAm >90 (>60 ml/min/1.73 sqM) Est GFR (CKD-EPI)NonAf >90 (>60 ml/min/1.73 sqM) Glucose 113 H (74-99) mg/dL Plasma Lactic Acid Toby (0.7-2.0) mmol/L Calcium 9.0 (8.4-10.2) mg/dL Total Bilirubin 0.3 (0.2-1.3) mg/dL AST 18 (14-36) U/L ALT 11 (4-34) U/L Alkaline Phosphatase 96 (38-126) U/L C-Reactive Protein 236.6 H (<10.0) mg/L Total Protein 7.2 (6.3-8.2) g/dL Albumin 3.5 (3.5-5.0) g/dL 03/20/20 Range/Units 19:50 WBC (3.8-10.6) k/uL RBC (3.80-5.40) m/uL Hgb (11.4-16.0) gm/dL Hct (34.0-46.0) % MCV (80.0-100.0) fL MCH (25.0-35.0) pg MCHC (31.0-37.0) g/dL RDW (11.5-15.5) % Plt Count (150-450) k/uL Neutrophils % % Lymphocytes % % Monocytes % % Eosinophils % % Basophils % % Neutrophils # (1.3-7.7) k/uL Lymphocytes # (1.0-4.8) k/uL Monocytes # (0-1.0) k/uL Eosinophils # (0-0.7) k/uL Basophils # (0-0.2) k/uL ESR (0-20) mm/hr PT (9.0-12.0) sec INR (<1.2) APTT (22.0-30.0) sec Sodium (137-145) mmol/L Potassium (3.5-5.1) mmol/L Chloride (98-107) mmol/L Carbon Dioxide (22-30) mmol/L Anion Gap mmol/L BUN (7-17) mg/dL Creatinine (0.52-1.04) mg/dL Est GFR (CKD-EPI)AfAm (>60 ml/min/1.73 sqM) Est GFR (CKD-EPI)NonAf (>60 ml/min/1.73 sqM) Glucose (74-99) mg/dL Plasma Lactic Acid Toby 1.5 (0.7-2.0) mmol/L Calcium (8.4-10.2) mg/dL Total Bilirubin (0.2-1.3) mg/dL AST (14-36) U/L ALT (4-34) U/L Alkaline Phosphatase (38-126) U/L C-Reactive Protein (<10.0) mg/L Total Protein (6.3-8.2) g/dL Albumin (3.5-5.0) g/dL - Radiology Data Radiology results: report reviewed, image reviewed X-ray of the tib-fib was obtained. Report was reviewed in its entirety. Impression by Dr. Almeida shows normal 2 view tibia and fibula. No suspicious changes to suggest acute osteomyelitis or subcutaneous air. Follow-up studies can be performed as clinically indicated. Disposition Clinical Impression: Cellulitis of right ankle, Acute lymphangitis of right lower extremity Disposition: ADMITTED IP TO THIS [facility] Condition: Serious Decision to Admit Reason: Admit from EC Decision Date: 03/20/20 Decision Time: 22:04
[2020-03-20] MEDS: SODIUM CHLORIDE 0.9% 500 ML 500 ML IV SCH ×3 (19:50→21:28)
[2020-03-20 20:13] LABS: Basophils # (A) 0.1 k/uL (0-0.2); Basophils % (A) 1 %; Eosinophils # (A) 0.3 k/uL (0-0.7); Eosinophils % (A) 3 %; HCT 39.9 % (34.0-46.0); HGB 12.8 gm/dL (11.4-16.0); Lymphocytes # (A) 1.9 k/uL (1.0-4.8); Lymphocytes % (A) 16 %; MCH 29.9 pg (25.0-35.0); MCHC 32.2 g/dL (31.0-37.0); Mean Platelet Volume 7.3; Monocytes # (A) 0.6 k/uL (0-1.0); Monocytes % (A) 5 %; Neutrophils # (A) 8.8 k/uL (1.3-7.7); Neutrophils % (A) 75 %; Platelet Count 378 k/uL (150-450); RBC 4.29 m/uL (3.80-5.40); RDW 13.4 % (11.5-15.5); WBC 11.8 k/uL (3.8-10.6)
[2020-03-20 20:26] LABS: ALT 11 U/L (4-34); AST 18 U/L (14-36); African American GFR (CKD) >90 (>60 ml/min/1.73 sqM); Albumin 3.5 g/dL (3.5-5.0); Alkaline Phosphatase 96 U/L (38-126); Anion Gap 9 mmol/L; Blood Urea Nitrogen 14 mg/dL (7-17); Carbon Dioxide 27 mmol/L (22-30); Chloride 102 mmol/L (98-107); Glucose 113 mg/dL (74-99); Non-African American GFR(CKD) >90 (>60 ml/min/1.73 sqM); Potassium 4.3 mmol/L (3.5-5.1); Sodium 138 mmol/L (137-145); Total Bilirubin 0.3 mg/dL (0.2-1.3); Total Protein 7.2 g/dL (6.3-8.2)
[2020-03-20 20:33] LABS: INR 0.9 (<1.2); Partial Thromboplastin Time 24.6 sec (22.0-30.0); Prothrombin Time 9.5 sec (9.0-12.0)
[2020-03-20 20:40] LABS: C Reactive Protein 236.6 mg/L (<10.0)
[2020-03-20] MEDS: VANCOMYCIN 1,500 MG in SODIUM CHLORIDE 0.9% 250 ML IVPB SCH (20:53)
[2020-03-20 21:12] LABS: Erythrocyte Sedimentation Rate 71 mm/hr (0-20)
[2020-03-20] MEDS ORDERED: HYDROmorphone 1 MG/ML 1 ML SYRINGE IVP STA (21:21)
--- NOTE | 2020-03-20 21:43 | XR ---
EXAMINATION TYPE: XR tibia fibula RT DATE OF EXAM: 03/20/2020 COMPARISON: None HISTORY: Pain erythema TECHNIQUE: 2 view right tibia and fibula FINDINGS: The joint space appears intact. Ankle joint space appears intact. No acute fracture or disl ocation is evident. Soft tissues appear normal. IMPRESSION: 1. Normal 2 view tibia and fibula. 2. No suspicious changes to suggest acute osteomyelitis or subcutaneous air. Follow-up studies can be performed as clinically indicated.
[2020-03-20] MEDS ORDERED: ONDANSETRON 4 MG/2 ML VIAL IVP PRN (22:01)
[2020-03-20] MEDS ORDERED: NALOXONE 0.4 MG/ML 1 ML VIAL IV PRN (22:01)
[2020-03-20] MEDS ORDERED: KETOROLAC 30 MG/ML 1 ML VIAL IVP PRN (22:01)
[2020-03-20] MEDS ORDERED: NICOTINE 21MG/24HR PATCH TRANSDERM STA (22:25)
[2020-03-20] MEDS: SODIUM CHLORIDE 0.9% 1,000 ML IV SCH (22:29)
[2020-03-20 23:58] LABS: Appearance,Urine Clear (Clear); Bilirubin,Urine Negative (Negative); Blood,Urine Negative (Negative); Color,Urine Light Yellow; Glucose,Urine (UA) Negative (Negative); Ketones,Urine Negative (Negative); Leukocyte Esterase,Urine Negative (Negative); Nitrite,Urine Negative (Negative); Protein,Urine Negative (Negative); Specific Gravity,Urine 1.008 (1.001-1.035); Urobilinogen,Urine <2.0 mg/dL (<2.0)
[2020-03-21] MEDS: HYDROmorphone 1 MG/ML 1 ML SYRINGE IVP PRN ×6 (01:43→21:46)
[2020-03-21] MEDS: ACETAMINOPHEN TAB 325 MG TAB PO PRN ×2 (04:06→20:02)
[2020-03-21] MEDS: VANCOMYCIN 1,500 MG in SODIUM CHLORIDE 0.9% 250 ML IVPB SCH ×2 (09:08→21:38)
[2020-03-21] MEDS: NICOTINE 21MG/24HR PATCH TRANSDERM SCH (09:08)
[2020-03-21] MEDS ORDERED: VANCOMYCIN IV PER PHARMACY 1 EACH MISC MISCELLANE PRN (12:15)
--- NOTE | 2020-03-21 13:58 | P.HPIM ---
History of Present Illness Patient is 59-year-old female came in with complaints of significant redness in the right ankle and swelling and some streaking extending up to the right knee. Patient was recently discharged from the hospital after she was treated for ankle swelling and believed to have gouty arthritis. Patient's symptoms didn't get the better patient's had low-grade fever here extremely tender patient pain is out of proportion to the redness because of which I'm will get a CT of the right lower extremity to rule out any fasciitis. Will also order Doppler of the right lower extremity. Patient denied any nausea vomiting dysuria. X-ray of the right foot did not show any significant abnormality patient is on prednisone for her arthritis of the right knee which was believed secondary to gout patient denied any history of MRSA in the past patient is presently on ceftriaxone which will be discontinued and also on vancomycin which will be continued. Patient pain is 10/10 Review of Systems REVIEW OF SYSTEMS: CONSTITUTIONAL: No fever, no malaise, no fatigue. HEENT: No recent visual problems or hearing problems. Denied any sore throat. CARDIOVASCULAR: No chest pain, orthopnea, PND, no palpitations, no syncope. PULMONARY: No shortness of breath, no cough, no hemoptysis. GASTROINTESTINAL: No diarrhea, no nausea, no vomiting, no abdominal pain. NEUROLOGICAL: No headaches, no weakness, no numbness. HEMATOLOGICAL: Denies any bleeding or petechiae. GENITOURINARY: Denies any burning micturition, frequency, or urgency. MUSCULOSKELETAL/RHEUMATOLOGICAL: Denies any joint pain, swelling, or any muscle pain. ENDOCRINE: Denies any polyuria or polydipsia. The rest of the 14-point review of systems is negative. Past Medical History Past Medical History: Asthma, Heart Failure, GERD/Reflux, Rheumatoid Arthritis (RA) Additional Past Medical History / Comment(s): BACK PAIN, History of Any Multi-Drug Resistant Organisms: None Reported Past Surgical History: Adenoidectomy, Back Surgery, Hysterectomy, Tonsillectomy, Tubal Ligation Additional Past Surgical History / Comment(s): LEFT BUNIONECTOMY, LEFT WRIST SURGERY,cervical neck surgery Past Anesthesia/Blood Transfusion Reactions: No Reported Reaction Additional Past Anesthesia/Blood Transfusion Reaction / Comment(s): no hx blood transfusion Past Psychological History: Anxiety, Depression Smoking Status: Current every day smoker Past Alcohol Use History: Occasional Additional Past Alcohol Use History / Comment(s): started smoking at age 13,1ppd Past Drug Use History: None Reported - Past Family History Father Family Medical History: Cancer, Hypertension Additional Family Medical History / Comment(s): "black lung" Mother Family Medical History: Hypertension Brother(s) Family Medical History: No Reported History Sister(s) Family Medical History: No Reported History Son(s) Family Medical History: Asthma Daughter(s) Family Medical History: No Reported History Medications and Allergies Home Medications Medication Instructions Recorded Confirmed Type predniSONE 50 mg PO DAILY #5 tablet 03/16/20 03/20/20 Rx Allergies Allergy/AdvReac Type Severity Reaction Status Date / Time No Known Allergies Allergy Verified 03/20/20 22:10 Physical Exam Vitals: Vital Signs Temp Pulse Pulse Resp BP BP Pulse Ox 03/21/20 07:14 98.2 F 79 16 96/63 96 03/21/20 03:09 98.0 F 84 16 105/62 93 L 03/20/20 22:50 98.0 F 82 16 114/72 98 03/20/20 22:40 98.0 F 85 18 106/62 98 03/20/20 19:22 100.6 F H 03/20/20 19:08 99.4 F 101 H 18 104/66 96 Intake and Output 03/20/20 03/21/20 03/21/20 22:59 06:59 14:59 Intake Total 400 Output Total 800 Balance 400 -800 Intake: Intake, IV Titration 400 Amount Sodium Chloride 0.9% 1, 400 000 ml @ 50 mls/hr IV . Q20H [facility] Rx#:[id number] Output: Urine 800 Other: Voiding Method Toilet # Voids 2 Weight 90.718 kg 90.718 kg PHYSICAL EXAMINATION: GENERAL: The patient is alert and oriented x3, not in any acute distress. Well developed, well nourished. HEENT: Pupils are round and equally reacting to light. EOMI. No scleral icterus. No conjunctival pallor. Normocephalic, atraumatic. No pharyngeal erythema. No thyromegaly. CARDIOVASCULAR: S1 and S2 present. No murmurs, rubs, or gallops. PULMONARY: Chest is clear to auscultation, no wheezing or crackles. ABDOMEN: Soft, nontender, nondistended, normoactive bowel sounds. No palpable organomegaly. MUSCULOSKELETAL: No joint swelling or deformity. EXTREMITIES: No cyanosis, clubbing, or pedal edema. NEUROLOGICAL: Gross neurological examination did not reveal any focal deficits. SKIN: Redness of the right lower extremity mostly in the ankle area significant swelling in the right ankle with some redness extending up to mid the leg there is some streaking consistent with lymphangitis. Tenderness to touch. Results CBC & Chem 7: 03/20/20 19:50 03/20/20 19:50 Labs: Abnormal Lab Results - Last 24 Hours (Table) 03/20/20 03/20/20 Range/Units 19:50 19:50 WBC 11.8 H (3.8-10.6) k/uL Neutrophils # 8.8 H (1.3-7.7) k/uL ESR 71 H (0-20) mm/hr Glucose 113 H (74-99) mg/dL C-Reactive Protein 236.6 H (<10.0) mg/L Thrombosis Risk Factor Assmnt - Choose All That Apply Any of the Below Risk Factors Present?: Yes Each Factor Represents 1 point: Age 41-60 years, Obesity (BMI >25) Other Risk Factors: Yes Each Risk Factor Represents 3 Points: Family history of DVT/PE Thrombosis Risk Factor Assessment Total Risk Factor Score: 5 Thrombosis Risk Factor Assessment Level: High Risk Assessment and Plan Plan: -Possible of the right lower extremity although I cannot completely rule out gout without is definitely a possibility because of the location of the swellin g. She was continued on vancomycin because of her out of proportion pain monitoring CT to rule out any faciatis. We'll also rule out DVT -Esophageal reflux disease -Sepsis secondary to cellulitis. Due to prophylaxis with Lovenox
--- NOTE | 2020-03-21 14:30 | US ---
EXAMINATION TYPE: US venous doppler duplex LE RT DATE OF EXAM: 03/21/2020 12:53 PM COMPARISON: NONE CLINICAL HISTORY: r/o DVT. SIDE PERFORMED: Right TECHNIQUE: The lower extremity deep venous system is examined utilizing real time linear array sonog stephy with graded compression, doppler sonography and color-flow sonography. VESSELS IMAGED: External Iliac Vein (EIV) Common Femoral Vein Deep Femoral Vein Greater Saphenous Vein * Femoral Vein Popliteal Vein Small Saphenous Vein * Proximal Calf Veins (* superficial vessels) Grayscale, color doppler, spectral doppler imaging performed of the deep veins of the right lower ext remity. There is normal flow, compressibility, vascular waveforms. Right Leg: Negative for DVT IMPRESSION: No sonographic evidence of deep venous thrombosis within the visualized right lower extr emity.
--- NOTE | 2020-03-21 14:43 | CT ---
CT right lower extremity HISTORY: Pain and swelling mid calf down to toes Helical acquisition through the right leg during dynamic administration 100 cc Isovue 300 IV. Automat ed exposure control for dose reduction, DLP 512.5 mGycm. Three-dimensional reconstructions performed on an alternate workstation. Correlation to right leg 03/20/2020. Patient could not cooperate with exam. There is no fracture or dislocation. Within the subcutaneous fat anteriorly along the leg there is in creased attenuation which extends over the dorsum of the foot and ankle. No definite abnormal fluid c ollection. There is abnormal thickening along the dorsiflexor musculature. IMPRESSION: Correlate for cellulitis, possible myositis.
[2020-03-21] MEDS: KETOROLAC 30 MG/ML 1 ML VIAL IVP PRN ×2 (14:55→20:04)
[2020-03-21 17:08] LABS: Potassium 4.8 mmol/L (3.5-5.1)
[2020-03-21 17:12] LABS: African American GFR (CKD) >90 (>60 ml/min/1.73 sqM); Anion Gap 5 mmol/L; Blood Urea Nitrogen 11 mg/dL (7-17); Calcium 8.2 mg/dL (8.4-10.2); Carbon Dioxide 24 mmol/L (22-30); Chloride 105 mmol/L (98-107); Creatine Kinase 56 U/L (30-135); Glucose 132 mg/dL (74-99); Non-African American GFR(CKD) >90 (>60 ml/min/1.73 sqM); Sodium 134 mmol/L (137-145)
[2020-03-21 17:16] LABS: Basophils % (A) 0 %; Eosinophils # (A) 0.2 k/uL (0-0.7); Eosinophils % (A) 2 %; HCT 38.2 % (34.0-46.0); HGB 12.2 gm/dL (11.4-16.0); Hypochromasia Slight; Lymphocytes # (A) 1.4 k/uL (1.0-4.8); Lymphocytes % (A) 14 %; MCH 30.3 pg (25.0-35.0); MCHC 31.8 g/dL (31.0-37.0); MCV 95.2 fL (80.0-100.0); Mean Platelet Volume 7.2; Monocytes # (A) 0.5 k/uL (0-1.0); Monocytes % (A) 5 %; Neutrophils % (A) 78 %; Platelet Count 314 k/uL (150-450); RBC 4.01 m/uL (3.80-5.40); RDW 13.2 % (11.5-15.5); WBC 10.2 k/uL (3.8-10.6)
[2020-03-21 17:23] LABS: C Reactive Protein 191.7 mg/L (<10.0)
[2020-03-21] MEDS: SODIUM CHLORIDE 0.9% 1,000 ML IV SCH (18:03)
[2020-03-22] MEDS: HYDROmorphone 1 MG/ML 1 ML SYRINGE IVP PRN ×8 (01:23→22:25)
[2020-03-22] MEDS: ACETAMINOPHEN TAB 325 MG TAB PO PRN (05:42)
[2020-03-22] MEDS: KETOROLAC 30 MG/ML 1 ML VIAL IVP PRN ×2 (05:43→18:01)
[2020-03-22] MEDS: SODIUM CHLORIDE 0.9% 1,000 ML IV SCH ×2 (06:43→15:16)
--- NOTE | 2020-03-22 07:05 | P.CONS ---
History of Present Illness - Reason for Consult Consult date: 03/21/20 right leg cellulitis Requesting physician: Rosibel Steele - Chief Complaint right ankle pain x 2 weeks - History of Present Illness Patient is a 59-year-old female with a past medical history difficult for smoking COPD and chronic cough presenting to the ER with chief complaints of increasing pain to the right ankle area along with swelling apparently the pa tient having pain into the right ankle in about 2 weeks ago patient denies having any history of any trauma she thought she may have twisted her ankle however her with the pain persisted she presented to the ER she was seen in this ER about 2 days ago at that point the patient was diagnosed with possible gout and the patient was discharged home on steroids however the patient presented back now with the increasing pain and swelling to the right ankle area the patient describing the pain to be throbbing and sharp almost 20 out of 10 patient currently not have any open wound or any drainage patient did have a fever 100.6 patient did have a white count of 11.8 elevated sed rate as well as CRP urine was negative uric acid has not been checked patient has been started on vancomycin pharmacy to dose infectious was consulted for further management of antibiotic therapy patient did have nursing Doppler those has been negative for DVT she also have a CT of the right leg today shows correlate for cellulitis possible myositis but no evidence of any abnormal fluid collection. Review of Systems Positive point has been mentioned in HPI rest of the systems are negative Past Medical History Past Medical History: Asthma, Heart Failure, GERD/Reflux, Rheumatoid Arthritis (RA) Additional Past Medical History / Comment(s): BACK PAIN, History of Any Multi-Drug Resistant Organisms: None Reported Past Surgical History: Adenoidectomy, Back Surgery, Hysterectomy, Tonsillectomy, Tubal Ligation Additional Past Surgical History / Comment(s): LEFT BUNIONECTOMY, LEFT WRIST SURGERY,cervical neck surgery Past Anesthesia/Blood Transfusion Reactions: No Reported Reaction Additional Past Anesthesia/Blood Transfusion Reaction / Comm: no hx blood transfusion Past Psychological History: Anxiety, Depression Smoking Status: Current every day smoker Past Alcohol Use History: Occasional Additional Past Alcohol Use History / Comment(s): started smoking at age 13,1ppd Past Drug Use History: None Reported - Past Family History Father Family Medical History: Cancer, Hypertension Additional Family Medical History / Comment(s): "black lung" Mother Family Medical History: Hypertension Brother(s) Family Medical History: No Reported History Sister(s) Family Medical History: No Reported History Son(s) Family Medical History: Asthma Daughter(s) Family Medical History: No Reported History Medications and Allergies Home Medications Medication Instructions Recorded Confirmed Type predniSONE 50 mg PO DAILY #5 tablet 03/16/20 03/20/20 Rx Allergies Allergy/AdvReac Type Severity Reaction Status Date / Time No Known Allergies Allergy Verified 03/20/20 22:10 Physical Exam Vitals: Vital Signs Temp Pulse Pulse Resp BP BP Pulse Ox 03/21/20 14:10 99.8 F H 97 18 136/75 97 03/21/20 07:14 98.2 F 79 16 96/63 96 03/21/20 03:09 98.0 F 84 16 105/62 93 L 03/20/20 22:50 98.0 F 82 16 114/72 98 03/20/20 22:40 98.0 F 85 18 106/62 98 03/20/20 19:22 100.6 F H 03/20/20 19:08 99.4 F 101 H 18 104/66 96 Intake and Output 03/21/20 03/21/20 03/21/20 06:59 14:59 22:59 Intake Total 400 Output Total 800 Balance 400 -800 Intake: Intake, IV Titration 400 Amount Sodium Chloride 0.9% 1, 400 000 ml @ 50 mls/hr IV . Q20H [facility] Rx#:[id number] Output: Urine 800 Other: Voiding Method Toilet # Voids 2 Weight 90.718 kg GENERAL DESCRIPTION: Middle-aged female lying in bed, no distress. No tachypnea or accessory muscle of respiration use. HEENT: Shows Pallor , no scleral icterus. Oral mucous membrane is dry. NECK: Trachea central, no thyromegaly. LUNGS: Unlabored breathing. Coarse breath sounds in the bases. No wheeze or crackle. HEART: S1, S2, regular rate and rhythm. ABDOMEN: Soft, no tenderness , guarding or rigidity EXTREMITIES: right ankle is currently swollen, minimal warmth s to touch and tender no redness no open wound or any drainage SkIN: No rash, no masses palpable. NEUROLOGICAL: The patient is awake, alert, oriented x3, mood and affect normal. Results CBC & Chem 7: 03/21/20 16:42 06/08/20 16:42 Labs: Abnormal Lab Results - Last 24 Hours (Table) 03/20/20 03/20/20 Range/Units 19:50 19:50 WBC 11.8 H (3.8-10.6) k/uL Neutrophils # 8.8 H (1.3-7.7) k/uL ESR 71 H (0-20) mm/hr Glucose 113 H (74-99) mg/dL C-Reactive Protein 236.6 H (<10.0) mg/L Assessment and Plan Assessment: -patient presenting the hospital with right ankle area pain and swelling that h as been going on for 2 weeks failed to respond to the outpatient oral steroids with concern for possible gout initially now with a fever and elevated white count concern is for possible cellulitis versus septic arthritis though CT did not show any evidence of joint effusion on the right ankle area and will need to cover for the gram-positive skin shawn such as Streptococcus and Staphylococcus aureus, in view of the possible myositis seen on the CT patient benefit from orthopedic evaluation (1) Cellulitis of right ankle Current Visit: Yes Status: Acute Code(s): L03.115 - CELLULITIS OF RIGHT LOWER LIMB SNOMED Code(s): [id number] Plan: 1-vancomycin pharmacy to dose with a target trough of 15 while watching her kidney function and Vanco trough closely. 2-check a CPK 3-gentle IV fluid We will follow on clinical condition and cultures to further adjust medication if needed Thank you for this consultation we will follow the patient along with you Time with Patient: Greater than 30
[2020-03-22] MEDS: NICOTINE 21MG/24HR PATCH TRANSDERM SCH (07:20)
[2020-03-22] MEDS: VANCOMYCIN 1,500 MG in SODIUM CHLORIDE 0.9% 250 ML IVPB SCH ×2 (07:20→20:08)
[2020-03-22] MEDS: ENOXAPARIN 40 MG/0.4 ML SYRINGE SQ SCH (07:20)
[2020-03-22 08:08] LABS: African American GFR (CKD) >90 (>60 ml/min/1.73 sqM); Anion Gap 2 mmol/L; Blood Urea Nitrogen 9 mg/dL (7-17); Calcium 8.7 mg/dL (8.4-10.2); Carbon Dioxide 28 mmol/L (22-30); Chloride 104 mmol/L (98-107); Creatine Kinase 81 U/L (30-135); Glucose 106 mg/dL (74-99); Non-African American GFR(CKD) >90 (>60 ml/min/1.73 sqM); Sodium 134 mmol/L (137-145); Uric Acid 3.7 mg/dL (3.7-7.4)
[2020-03-22 08:12] LABS: Basophils % (A) 0 %; Eosinophils # (A) 0.3 k/uL (0-0.7); Eosinophils % (A) 3 %; HCT 33.9 % (34.0-46.0); HGB 11.3 gm/dL (11.4-16.0); Hypochromasia Slight; Lymphocytes # (A) 1.4 k/uL (1.0-4.8); Lymphocytes % (A) 14 %; MCH 31.4 pg (25.0-35.0); MCHC 33.4 g/dL (31.0-37.0); MCV 94.1 fL (80.0-100.0); Mean Platelet Volume 7.1; Monocytes # (A) 0.5 k/uL (0-1.0); Monocytes % (A) 5 %; Neutrophils # (A) 7.5 k/uL (1.3-7.7); Neutrophils % (A) 77 %; Platelet Count 357 k/uL (150-450); RDW 13.2 % (11.5-15.5); WBC 9.8 k/uL (3.8-10.6)
[2020-03-22 08:21] LABS: C Reactive Protein 184.7 mg/L (<10.0)
--- NOTE | 2020-03-22 14:59 | P.PN ---
Subjective 59-year-old female came in with complaints of significant redness in the right ankle and swelling and some streaking extending up to the right knee. Patient was recently discharged from the hospital after she was treated for ankle swelling and believed to have gouty arthritis. Patient's symptoms didn't get the better patient's had low-grade fever here extremely tender patient pain is out of proportion to the redness because of which I'm will get a CT of the right lower extremity to rule out any fasciitis. Will also order Doppler of the right lower extremity. Patient denied any nausea vomiting dysuria. X-ray of the right foot did not show any significant abnormality patient is on prednisone for her arthritis of the right knee which was believed secondary to gout patient denied any history of MRSA in the past patient is presently on ceftriaxone which will be discontinued and also on vancomycin which will be continued. Patient pain is 07/23. 03/22/2020 Patient is still coming of severe pain in the right leg patient appears to have myositis on the CT patient was started on the clindamycin as well by infectious diseasethe patient is presently on Vanco mycin as well. Constitutional: Denied any fatigue denied any fever. Cardio vascular: denied any chest pain, palpitations Gastrointestinal denied any nausea vomiting Pulmonary: Denied any shortness of breath cough Neurologic denied any new focal deficits All inpatient medications were reviewed and appropriate changes in these medications as dictated in the interval history and assessment and plan. Objective - Vital Signs Vital signs: Vital Signs Temp 98.9 F 03/22/20 06:59 Pulse 86 03/22/20 06:59 Resp 17 03/22/20 06:59 BP 118/69 03/22/20 06:59 Pulse Ox 96 03/22/20 06:59 Intake & Output 03/21/20 03/22/20 03/22/20 18:59 06:59 18:59 Output Total 800 Balance -800 Output: Urine 800 Other: Voiding Method Bedside Commode Bedside Commode # Voids 1 - Exam PHYSICAL EXAMINATION: GENERAL: The patient is alert and oriented x3, not in any acute distress. Well developed, well nourished. HEENT: Pupils are round and equally reacting to light. EOMI. No scleral icterus. No conjunctival pallor. Normocephalic, atraumatic. No pharyngeal erythema. No thyromegaly. CARDIOVASCULAR: S1 and S2 present. No murmurs, rubs, or gallops. PULMONARY: Chest is clear to auscultation, no wheezing or crackles. ABDOMEN: Soft, nontender, nondistended, normoactive bowel sounds. No palpable organomegaly. MUSCULOSKELETAL: No joint swelling or deformity. EXTREMITIES: No cyanosis, clubbing, or pedal edema. NEUROLOGICAL: Gross neurological examination did not reveal any focal deficits. SKIN: Redness of the right lower extremity mostly in the ankle area significant swelling in the right ankle with some redness extending up to mid the leg there is some streaking consistent with lymphangitis. Tenderness to touch. - Labs CBC & Chem 7: 03/22/20 07:30 03/22/20 07:30 Labs: Abnormal Lab Results - Last 24 Hours (Table) 03/21/20 03/21/20 03/22/20 Range/Units 16:42 16:42 07:30 RBC (3.80-5.40) m/uL Hgb (11.4-16.0) gm/dL Hct (34.0-46.0) % Neutrophils # 8.0 H (1.3-7.7) k/uL Sodium 134 L 134 L (137-145) mmol/L Glucose 132 H 106 H (74-99) mg/dL Calcium 8.2 L (8.4-10.2) mg/dL C-Reactive Protein 191.7 H 184.7 H (<10.0) mg/L 03/22/20 Range/Units 07:30 RBC 3.60 L (3.80-5.40) m/uL Hgb 11.3 L (11.4-16.0) gm/dL Hct 33.9 L (34.0-46.0) % Neutrophils # (1.3-7.7) k/uL Sodium (137-145) mmol/L Glucose (74-99) mg/dL Calcium (8.4-10.2) mg/dL C-Reactive Protein (<10.0) mg/L Microbiology - Last 24 Hours (Table) 03/20/20 19:50 Blood Culture - Preliminary Blood No Growth after 24 hours Assessment and Plan Plan: -Possible of the right lower extremity she disorders some myositis patient is presently in clindamycin and vancomycin which will be continued patient still has significant swelling of the right leg. Patient is still complaining of quite a bit of pain -Esophageal reflux disease -Sepsis secondary to cellulitis. Due to prophylaxis with Lovenox
[2020-03-22] MEDS ORDERED: VANCOMYCIN TROUGH DUE 1 EACH MISC MISCELLANE ONE (19:15)
--- NOTE | 2020-03-22 20:38 | PN ---
PROGRESS NOTE DATE OF SERVICE: 03/22/2020 REASON FOR FOLLOWUP: Right foot and ankle cellulitis. INTERVAL HISTORY: The patient is currently afebrile. She is still complaining of pain to the right lower leg and ankle area. The patient denies having any chest pain, shortness of breath or cough. No nausea, vomiting, abdominal pain or diarrhea. PHYSICAL EXAMINATION: Blood pressure 133/83 with a pulse of 90, temperature 98.9. She is 96% on room air. General description is a middle-aged female lying in bed in no distress. RESPIRATORY SYSTEM: Unlabored breathing. Clear to auscultation anteriorly. HEART: S1, S2. Regular rate and rhythm. ABDOMEN: Soft. No tenderness. Right lower leg did have some swelling and minimal redness, slightly warm to touch. LABS: Hemoglobin is 11.3 with a white count of 9.8. CRP is down to 184. Vancomycin trough is 12.8. CPK is normal. Uric acid is normal. DIAGNOSTIC IMPRESSION AND PLAN: Patient admitted to hospital with right ankle and leg pain, swelling and redness with concern for cellulitis. The patient is currently on vancomycin and did have slight improvement. CRP is slightly down, too. Keep the patient on vancomycin. Will apply Brandon wrap to keep some of the swelling down. Questions and concerns were answered. Continue supportive care. MMODL / IJN: [id number] /
[2020-03-23] MEDS: HYDROmorphone 1 MG/ML 1 ML SYRINGE IVP PRN ×8 (01:14→22:02)
[2020-03-23] MEDS: SODIUM CHLORIDE 0.9% 1,000 ML IV SCH ×3 (01:23→22:21)
[2020-03-23] MEDS: ACETAMINOPHEN TAB 325 MG TAB PO PRN ×3 (03:37→18:03)
[2020-03-23] MEDS: KETOROLAC 30 MG/ML 1 ML VIAL IVP PRN ×3 (03:46→18:04)
[2020-03-23 08:49] LABS: HCT 33.4 % (34.0-46.0); MCH 30.1 pg (25.0-35.0); MCV 91.2 fL (80.0-100.0); Mean Platelet Volume 8.5; Platelet Count 221 k/uL (150-450); RBC 3.66 m/uL (3.80-5.40); RDW 12.9 % (11.5-15.5); WBC 6.7 k/uL (3.8-10.6)
[2020-03-23] MEDS: ENOXAPARIN 40 MG/0.4 ML SYRINGE SQ SCH (09:26)
[2020-03-23] MEDS: VANCOMYCIN 1,500 MG in SODIUM CHLORIDE 0.9% 250 ML IVPB SCH ×2 (09:27→20:21)
[2020-03-23] MEDS: NICOTINE 21MG/24HR PATCH TRANSDERM SCH (09:31)
[2020-03-23 09:53] LABS: African American GFR (CKD) >90 (>60 ml/min/1.73 sqM); Anion Gap 7 mmol/L; Blood Urea Nitrogen 6 mg/dL (7-17); Calcium 8.5 mg/dL (8.4-10.2); Carbon Dioxide 23 mmol/L (22-30); Chloride 105 mmol/L (98-107); Glucose 105 mg/dL (74-99); Non-African American GFR(CKD) >90 (>60 ml/min/1.73 sqM); Potassium 4.4 mmol/L (3.5-5.1); Sodium 135 mmol/L (137-145)
--- NOTE | 2020-03-23 12:41 | P.PN ---
Subjective 59-year-old female came in with complaints of significant redness in the right ankle and swelling and some streaking extending up to the right knee. Patient was recently discharged from the hospital after she was treated for ankle swelling and believed to have gouty arthritis. Patient's symptoms didn't get the better patient's had low-grade fever here extremely tender patient pain is out of proportion to the redness because of which I'm will get a CT of the right lower extremity to rule out any fasciitis. Will also order Doppler of the right lower extremity. Patient denied any nausea vomiting dysuria. X-ray of the right foot did not show any significant abnormality patient is on prednisone for her arthritis of the right knee which was believed secondary to gout patient denied any history of MRSA in the past patient is presently on ceftriaxone which will be discontinued and also on vancomycin which will be continued. Patient pain is 07/23. 03/22/2020 Patient is still coming of severe pain in the right leg patient appears to have myositis on the CT patient was started on the clindamycin as well by infectious diseasethe patient is presently on Vanco mycin as well. 03/23/2020 Patient is still having significant swelling and redness will continue with 1 more day of IV antibiotics possibility of discharge tomorrow Constitutional: Denied any fatigue denied any fever. Cardio vascular: denied any chest pain, palpitations Gastrointestinal denied any nausea vomiting Pulmonary: Denied any shortness of breath cough Neurologic denied any new focal deficits All inpatient medications were reviewed and appropriate changes in these medications as dictated in the interval history and assessment and plan. Objective - Vital Signs Vital signs: Vital Signs Temp 98.5 F 03/23/20 11:39 Pulse 75 03/23/20 11:39 Resp 18 03/23/20 11:39 BP 130/80 03/23/20 11:39 Pulse Ox 96 03/23/20 11:39 Intake & Output 03/22/20 03/23/20 03/23/20 18:59 06:59 18:59 Intake Total 200 Balance 200 Intake: Oral 200 Other: Voiding Method Bedside Commode Bedside Commode Bedside Commode # Voids 2 1 - Exam PHYSICAL EXAMINATION: GENERAL: The patient is alert and oriented x3, not in any acute distress. Well developed, well nourished. HEENT: Pupils are round and equally reacting to light. EOMI. No scleral icterus. No conjunctival pallor. Normocephalic, atraumatic. No pharyngeal erythema. No thyromegaly. CARDIOVASCULAR: S1 and S2 present. No murmurs, rubs, or gallops. PULMONARY: Chest is clear to auscultation, no wheezing or crackles. ABDOMEN: Soft, nontender, nondistended, normoactive bowel sounds. No palpable organomegaly. MUSCULOSKELETAL: No joint swelling or deformity. EXTREMITIES: No cyanosis, clubbing, or pedal edema. NEUROLOGICAL: Gross neurological examination did not reveal any focal deficits. SKIN: Redness of the right lower extremity mostly in the ankle area significant swelling in the right ankle with some redness extending up to mid the leg there is some streaking consistent with lymphangitis. Tenderness to touch. - Labs CBC & Chem 7: 03/23/20 07:28 03/23/20 07:28 Labs: Abnormal Lab Results - Last 24 Hours (Table) 03/23/20 03/23/20 Range/Units 07:28 07:28 RBC 3.66 L (3.80-5.40) m/uL Hgb 11.0 L (11.4-16.0) gm/dL Hct 33.4 L (34.0-46.0) % Sodium 135 L (137-145) mmol/L BUN 6 L (7-17) mg/dL Glucose 105 H (74-99) mg/dL Microbiology - Last 24 Hours (Table) 03/20/20 19:50 Blood Culture - Preliminary Blood No Growth after 48 hours Assessment and Plan Plan: -Possible of the right lower extremity she disorders some myositis patient is presently in clindamycin and vancomycin which will be continued patient still has significant swelling of the right leg. Patient is still complaining of quite a bit of pain -Esophageal reflux disease -Sepsis secondary to cellulitis. Due to prophylaxis with Lovenox
--- NOTE | 2020-03-23 13:02 | PN ---
PROGRESS NOTE DATE OF SERVICE: 03/23/2020 REASON FOR FOLLOWUP: Right lower extremity cellulitis. INTERVAL HISTORY: The patient is currently afebrile, patient is breathing comfortably. Right leg swelling and redness has slightly decreased. She was unable to tolerate the Brandon wrap yesterday. No chest pain, shortness of breath or cough. No abdominal pain, no diarrhea. PHYSICAL EXAMINATION: Blood pressure 120/87, pulse of 82, temperature 98.1, she is 98% on room air. General description is a middle-aged female, lying in bed in no distress. RESPIRATORY SYSTEM: Unlabored breathing, clear to auscultation anteriorly. HEART: S1, S2. Regular rate and rhythm. no tenderness right leg swelling persists redness has slightly decreased. LABS: Hemoglobin is 11.9, white count 6.7 BUN of 6, creatinine 0.54. Blood culture has been negative. DIAGNOSTIC IMPRESSION AND PLAN: Patient with acute right lower extremity pain, swelling and redness with concern for cellulitis. Plan is to continue with vancomycin in view of slow clinical response. Will check for outpatient antibiotic coverage and continue supportive care. MMODL / IJN: [id number] /
[2020-03-23 16:53] VITALS: RESP 16
[2020-03-24] MEDS ORDERED: HYDROmorphone 1 MG/ML 1 ML SYRINGE ONE ×2 (01:10)
[2020-03-24] MEDS ORDERED: ACETAMINOPHEN TAB 325 MG TAB ONE (01:10)
[2020-03-24] MEDS: SODIUM CHLORIDE 0.9% 1,000 ML IV SCH (06:36)
[2020-03-24] MEDS: ACETAMINOPHEN TAB 325 MG TAB PO PRN ×2 (06:37→13:27)
[2020-03-24] MEDS: KETOROLAC 30 MG/ML 1 ML VIAL IVP PRN ×2 (06:39→13:26)
[2020-03-24 07:01] LABS: African American GFR (CKD) >90 (>60 ml/min/1.73 sqM); Non-African American GFR(CKD) >90 (>60 ml/min/1.73 sqM)
[2020-03-24] MEDS: NICOTINE 21MG/24HR PATCH TRANSDERM SCH (08:33)
[2020-03-24] MEDS: VANCOMYCIN 1,500 MG in SODIUM CHLORIDE 0.9% 250 ML IVPB SCH (08:34)
[2020-03-24] MEDS: ENOXAPARIN 40 MG/0.4 ML SYRINGE SQ SCH (08:34)
[2020-03-24 08:46] VITALS: PULSE 76
[2020-03-24] MEDS: HYDROmorphone 1 MG/ML 1 ML SYRINGE IVP PRN ×3 (08:47→15:19)
--- NOTE | 2020-03-24 13:05 | PN ---
PROGRESS NOTE DATE OF SERVICE: 03/24/2020 REASON FOR FOLLOWUP: Right lower extremity cellulitis. INTERVAL HISTORY: The patient is currently afebrile. Patient has been feeling better, breathing comfortably. The patient mentioning the right leg pain and discomfort has improved from 15 down to 7 and is currently controlled with pain and medication. The patient overall feeling better, wants to go home. Denies having any chest pain, shortness of breath or cough. PHYSICAL EXAMINATION: Blood pressure 150/92 with a pulse of 76, temp is 97.4, she is 97% on room air. General description is a middle-aged female, lying in bed in no distress. RESPIRATORY SYSTEM: Unlabored breathing, clear to auscultation anteriorly. HEART: S1, S2. Regular rate and rhythm. ABDOMEN: Soft, no tenderness. Right leg swelling has decreased in intensity. LABS: Creatinine 0.57. Blood culture has been negative. DIAGNOSTIC IMPRESSION AND PLAN: Patient with is right lower extremity cellulitis that seems to have shown some clinical improvement with IV vancomycin. The patient is now insisting on going home. Will check with case finishing machine adjuster for patient coverage for IV antibiotic at home, which could be either vanco or daptomycin for about 10 days. If not, recommend oral Keflex 500 mg p.o. q.6 hours for 10 days in addition to the Bactrim DS one twice a day for the same duration and a close outpatient followup. MMODL / IJN: [id number] /
--- NOTE | 2020-03-24 15:13 | P.DS ---
Providers Date of admission: 03/20/20 22:14 Expected date of discharge: 03/24/20 Attending physician: Hilary Schultz Consults: 03/21/20 12:17 Consult Physician Routine Consulting Provider: Fadi Ly Consult Reason/Comments: Cellulitis Do you want consulting provider notified?: Yes Primary care physician: Vadim Roberts [facility] Course: Final diagnosis -Possible of the right lower extremity some myositis Esophageal reflux disease -Sepsis secondary to cellulitis -DVT prophylaxis Discharge disposition Patient is being discharged in a stable condition with guarded prognosis to home and will follow up with Dr. Fierro. Patient will follow-up with [facility] infusion clinic for daily IV antibiotic therapy for an additional 2 weeks. Patient will follow-up with wound care center. Patient is continuing on IV daptomycin at this time. Total time taken is greater than 35 minutes. History of present illness This is a 59-year-old female who was recently admitted with right lower extremity erythema and swelling and was found to have cellulitis and was being closely monitored. Patient was evaluated by infectious disease and continuing IV antibiotics in the outpatient setting for an additional 2 weeks. Patient will continue with IV daptomycin and follow-up with the wound care center. Currently no reports of chest pain, or worsening shortness of breath, or palpitations. Patient is afebrile. No reports of nausea or vomiting and patient is tolerating diet. On exam vital signs are stable. Temp is 98.6F, pulse is 76, respirations are 16, blood pressure is 151/89, oxygen saturation is 98% on room air. Cardio S1, S2 are present. Respiratory system shows diminished breath sounds at the bases with no rhonchi. Abdomen is soft and nontender. Nervous system shows no focal deficits. Please refer to medication reconciliation sheet for a list of medications. Patient Condition at Discharge: Stable Plan - Discharge Summary New Discharge Prescriptions: New Acetaminophen Tab [Tylenol] 650 mg PO Q6HR PRN tab PRN Reason: Mild Pain Or Fever > 100.5 Continue predniSONE 50 mg PO DAILY #5 tablet Discharge Medication List predniSONE 50 mg PO DAILY #5 tablet 03/16/20 [Rx] Acetaminophen Tab [Tylenol] 650 mg PO Q6HR PRN tab 03/24/20 [Rx] Follow up Appointment(s)/Referral(s): Armando Fierro MD [Primary Care Provider] - 1-2 days [facility]Infusion [NON-STAFF] - 03/25/20 11:30 am Activity/Diet/Wound Care/Special Instructions: Activity Limited until follow-up Continue current diet Continue with IV antibiotics as directed by infectious disease Primary care provider Follow-up in the wound care center Discharge Disposition: HOME SELF-CARE
[2020-03-24 15:38] VITALS: BP 158/90; TEMP 99.6
[2020-03-25] MEDS ORDERED: VANCOMYCIN TROUGH DUE 1 EACH MISC MISCELLANE ONE (07:15)
== END 2020-03-24 18:20 | disposition home or self-care (01) | DRG 872 ==
LOC: EC 19:06 → 4SSUR 22:14 → 6PED 03-23 10:23
PROVIDERS: ADMIT Hospitalist; ATTEND Hospitalist
PROC: 05HB33Z Insertion of Infusion Device into Right Basilic Vein, Percutaneous Approach (ICD-10-PCS; principal; 2020-03-24 14:05)
DX: A41.9 Sepsis, unspecified organism (principal); L03.115 Cellulitis of right lower limb; F17.210 Nicotine dependence, cigarettes, uncomplicated; F32.9 Major depressive disorder, single episode, unspecified; F41.9 Anxiety disorder, unspecified; J44.9 Chronic obstructive pulmonary disease, unspecified; K21.9 Gastro-esophageal reflux disease without esophagitis; M06.9 Rheumatoid arthritis, unspecified; M60.9 Myositis, unspecified; Z11.59 Encounter for screening for other viral diseases; Z90.710 Acquired absence of both cervix and uterus; Z98.51 Tubal ligation status; Z82.49 Family history of ischemic heart disease and other diseases of the circulatory system; Z82.5 Family history of asthma and other chronic lower respiratory diseases; Z80.9 Family history of malignant neoplasm, unspecified
CPT/HCPCS: 36410; 36415; 76937; 80048; 80053; 80202; 81003; 82550; 82565; 83605; 84550; 85025; 85027; 85610; 85652; 85730; 86140; 87040; 96365; 96366; 96367; 96375; 99284

== ENCOUNTER 2020-04-19 09:44 | Observation (INO) | payer MEDICARE ==
[2020-04-19] MEDS ORDERED: VANCOMYCIN IV PER PHARMACY 1 EACH MISC MISCELLANE PRN (10:10)
[2020-04-19 10:47] LABS: Basophils # (A) 0.1 k/uL (0-0.2); Basophils % (A) 1 %; Eosinophils # (A) 0.4 k/uL (0-0.7); Eosinophils % (A) 4 %; HCT 41.9 % (34.0-46.0); HGB 12.8 gm/dL (11.4-16.0); Hypochromasia Slight; Lymphocytes # (A) 2.2 k/uL (1.0-4.8); Lymphocytes % (A) 25 %; MCH 28.4 pg (25.0-35.0); MCHC 30.7 g/dL (31.0-37.0); MCV 92.5 fL (80.0-100.0); Monocytes # (A) 0.4 k/uL (0-1.0); Monocytes % (A) 5 %; Neutrophils # (A) 5.7 k/uL (1.3-7.7); Neutrophils % (A) 64 %; Platelet Count 384 k/uL (150-450); RBC 4.53 m/uL (3.80-5.40); RDW 13.7 % (11.5-15.5); WBC 8.9 k/uL (3.8-10.6)
[2020-04-19 10:53] LABS: C Reactive Protein 35.8 mg/L (<10.0); Calcium 9.4 mg/dL (8.4-10.2); Potassium 4.5 mmol/L (3.5-5.1)
[2020-04-19] MEDS ORDERED: VANCOMYCIN 1,500 MG in SODIUM CHLORIDE 0.9% 250 ML IVPB ONE (11:00)
[2020-04-19] MEDS: NICOTINE 14MG/24HR PATCH TRANSDERM SCH (11:18)
[2020-04-19 11:59] LABS: Erythrocyte Sedimentation Rate 75 mm/hr (0-20)
[2020-04-19] MEDS ORDERED: ACETAMINOPHEN TAB 500 MG TAB PO PRN (13:03)
[2020-04-19] MEDS ORDERED: LIDOCAINE 1% INJ 10MG/ML (20 ML MDV) SQ ONE (15:17)
[2020-04-19] MEDS: HYDROcodone/APAP 7.5-325MG 1 EACH TAB PO PRN ×2 (15:40→21:20)
--- NOTE | 2020-04-19 16:44 | P.HPIM ---
History of Present Illness 53-year-old female admitted for right anterior millan and ankle abscess. Patient was recently treated for cell lightest in that area was subsequently discharged this year for 10 days of IV antibiotics after which patient felt little bit better started having swelling again patient had was seen in infectious disease clinic was subsequently sent in here for abscess drainage and IV antibiotics patient was started on IV vancomycin. Patient denied any fever chills nausea vomiting abdominal pain patient is complaining of pain moderate severity.patient doesn't have any leukocytosis at this time. Review of Systems REVIEW OF SYSTEMS: CONSTITUTIONAL: No fever, no malaise, no fatigue. HEENT: No recent visual problems or hearing problems. Denied any sore throat. CARDIOVASCULAR: No chest pain, orthopnea, PND, no palpitations, no syncope. PULMONARY: No shortness of breath, no cough, no hemoptysis. GASTROINTESTINAL: No diarrhea, no nausea, no vomiting, no abdominal pain. NEUROLOGICAL: No headaches, no weakness, no numbness. HEMATOLOGICAL: Denies any bleeding or petechiae. GENITOURINARY: Denies any burning micturition, frequency, or urgency. MUSCULOSKELETAL/RHEUMATOLOGICAL: Denies any joint pain, swelling, or any muscle pain. ENDOCRINE: Denies any polyuria or polydipsia. The rest of the 14-point review of systems is negative. Past Medical History Past Medical History: Asthma, Heart Failure, GERD/Reflux, Rheumatoid Arthritis (RA) Additional Past Medical History / Comment(s): BACK PAIN, cellulitis Rt ankle area since 03/02 went home with picc line and abx x2 weeks History of Any Multi-Drug Resistant Organisms: None Reported Past Surgical History: Adenoidectomy, Back Surgery, Hysterectomy, Tonsillectomy, Tubal Ligation Additional Past Surgical History / Comment(s): LEFT BUNIONECTOMY, LEFT WRIST SURGERY,cervical neck surgery Past Anesthesia/Blood Transfusion Reactions: No Reported Reaction Additional Past Anesthesia/Blood Transfusion Reaction / Comment(s): no hx blood transfusion Past Psychological History: Anxiety, Depression Smoking Status: Current every day smoker Past Alcohol Use History: Occasional Additional Past Alcohol Use History / Comment(s): started smoking at age 13,1ppd Past Drug Use History: None Reported - Past Family History Father Family Medical History: Cancer, Hypertension Additional Family Medical History / Comment(s): "black lung" Mother Family Medical History: Hypertension Brother(s) Family Medical History: No Reported History Sister(s) Family Medical History: No Reported History Son(s) Family Medical History: Asthma Daughter(s) Family Medical History: No Reported History Medications and Allergies Home Medications Medication Instructions Recorded Confirmed Type Acetaminophen Tab [Tylenol Tab] 1,000 mg PO Q6HR PRN 04/19/20 04/19/20 History Acetaminophen/Diphenhydramine 2 tab PO HS 04/19/20 04/19/20 History [Tylenol PM 500-25mg] Albuterol Sulfate [Ventolin HFA] 1 - 2 puff INHALATION RT-Q6H PRN 04/19/20 04/19/20 History Calcium Carbonate [Tums] 1,000 mg PO BID PRN 04/19/20 04/19/20 History Ibuprofen [Motrin Ib] 200 mg PO Q8H PRN 04/19/20 04/19/20 History Allergies Allergy/AdvReac Type Severity Reaction Status Date / Time No Known Allergies Allergy Verified 04/19/20 10:42 Physical Exam Vitals: Vital Signs Temp Pulse Resp BP Pulse Ox 04/19/20 14:48 98.5 F 82 16 95/63 95 04/19/20 10:25 98.2 F 88 16 118/79 95 Intake and Output 04/19/20 04/19/20 04/19/20 06:59 14:59 22:59 Intake Total 250 Balance 250 Intake: IV 250 Vancomycin 1,500 mg In 250 Sodium Chloride 0.9% 250 ml @ 125 mls/hr IVPB ONCE ONE Rx#:[id number] Other: Weight 90.718 kg PHYSICAL EXAMINATION: GENERAL: The patient is alert and oriented x3, not in any acute distress. Well developed, well nourished. HEENT: Pupils are round and equally reacting to light. EOMI. No scleral icterus. No conjunctival pallor. Normocephalic, atraumatic. No pharyngeal erythema. No thyromegaly. CARDIOVASCULAR: S1 and S2 present. No murmurs, rubs, or gallops. PULMONARY: Chest is clear to auscultation, no wheezing or crackles. ABDOMEN: Soft, nontender, nondistended, normoactive bowel sounds. No palpable organomegaly. MUSCULOSKELETAL: No joint swelling or deformity. EXTREMITIES: No cyanosis, clubbing, or pedal edema. NEUROLOGICAL: Gross neurological examination did not reveal any focal deficits. SKIN: there is an abscess with local is of temperature redness tenderness on the right anterior millan area just above the ankle and ankle area with a fluctuant mass lesion consistent with abscess Results CBC & Chem 7: 04/19/20 10:20 04/19/20 10:20 Labs: Abnormal Lab Results - Last 24 Hours (Table) 04/19/20 04/19/20 Range/Units 10:20 10:20 MCHC 30.7 L (31.0-37.0) g/dL ESR 75 H (0-20) mm/hr Sodium 135 L (137-145) mmol/L Carbon Dioxide 21 L (22-30) mmol/L Glucose 116 H (74-99) mg/dL C-Reactive Protein 35.8 H (<10.0) mg/L Thrombosis Risk Factor Assmnt - Choose All That Apply Each Factor Represents 1 point: Age 41-60 years, Obesity (BMI >25) Each Risk Factor Represents 3 Points: Family history of DVT/PE Thrombosis Risk Factor Assessment Total Risk Factor Score: 5 Thrombosis Risk Factor Assessment Level: High Risk Assessment and Plan Plan: -abscess, cellulitis of the right lower extremity patient will need incision and drainage, vascular surgery was consulted for that. Patient was started on vancomycin, IV fluids. -COPD without any acute exacerbation -Gastroesophageal reflux disease -continued nicotine use: Counseling was provided -Depression For above-mentioned chronic medical problems patient will be continued on appropriate home medications
[2020-04-19] MEDS: SODIUM CHLORIDE 0.9% 1,000 ML IV SCH (17:14)
[2020-04-19] MEDS: KETOROLAC 30 MG/ML 1 ML VIAL IVP PRN (17:16)
[2020-04-19 19:37] VITALS: RESP 18
--- NOTE | 2020-04-19 20:19 | CONS ---
DATE OF CONSULTATION: 04/19/2020 This patient is a 56-year-old female. This is her second admission for cellulitis of the right lower extremity. The patient came with some swelling and redness on the right ankle, anterior aspect. I was consulted for I&D and taking a culture. MEDICAL HISTORY: No history of diabetes or hypertension. PERSONAL HISTORY: NO KNOWN ALLERGIES. PAST HISTORY: Patient had a C-spine injury and also patient had some hand surgery done in the past. PHYSICAL EXAMINATION NECK: Supple. Trachea central. CHEST: Clear to auscultation. ABDOMEN: Soft. Femoral pulses are present. Dorsal pedis is palpable. Right foot ankle has cellulitis and redness with some fluctuation, most likely abscess. PLAN: Incision and drainage and culture. MMODL / IJN: [id number] / MTDD
[2020-04-19] MEDS: FAMOTIDINE 20 MG TAB PO SCH (21:20)
[2020-04-19] MEDS: VANCOMYCIN 1,500 MG in SODIUM CHLORIDE 0.9% 250 ML IVPB SCH (21:21)
--- NOTE | 2020-04-19 23:17 | OP ---
OPERATIVE REPORT PREOPERATIVE DIAGNOSIS: Cellulitis with possible abscess, right ankle. PROCEDURE: Incision and drainage under local anesthesia. This patient has a history of cellulitis in the past. The patient came with swelling and redness at the ankle area. There was some fluctuation noted. PROCEDURE DESCRIPTION: Foot was prepped and draped in the usual sterile manner. Lidocaine 1% was infiltrated. A small incision was made and then deepened through skin, fat and fascia. No active pus was noted. We took some deep cultures and wound was irrigated with saline and dressing applied. Patient tolerated the procedure well. MMODL / IJN: [id number] /
[2020-04-20] MEDS: SODIUM CHLORIDE 0.9% 1,000 ML IV SCH ×2 (00:56→03:38)
[2020-04-20] MEDS: HYDROcodone/APAP 7.5-325MG 1 EACH TAB PO PRN ×3 (03:38→14:26)
[2020-04-20] MEDS: ENOXAPARIN 40 MG/0.4 ML SYRINGE SQ SCH (08:31)
[2020-04-20] MEDS: FAMOTIDINE 20 MG TAB PO SCH (08:31)
[2020-04-20] MEDS: NICOTINE 14MG/24HR PATCH TRANSDERM SCH (08:32)
[2020-04-20] MEDS: VANCOMYCIN 1,500 MG in SODIUM CHLORIDE 0.9% 250 ML IVPB SCH (08:39)
[2020-04-20 08:48] LABS: HCT 38.7 % (34.0-46.0); Hypochromasia Slight; MCH 28.6 pg (25.0-35.0); MCHC 30.9 g/dL (31.0-37.0); MCV 92.6 fL (80.0-100.0); Mean Platelet Volume 7.1; Platelet Count 315 k/uL (150-450); RBC 4.18 m/uL (3.80-5.40); RDW 13.6 % (11.5-15.5); WBC 5.6 k/uL (3.8-10.6)
[2020-04-20 09:01] LABS: African American GFR (CKD) >90 (>60 ml/min/1.73 sqM); Anion Gap 5 mmol/L; Blood Urea Nitrogen 10 mg/dL (7-17); Calcium 8.7 mg/dL (8.4-10.2); Carbon Dioxide 20 mmol/L (22-30); Chloride 112 mmol/L (98-107); Glucose 163 mg/dL (74-99); Non-African American GFR(CKD) >90 (>60 ml/min/1.73 sqM); Potassium 4.2 mmol/L (3.5-5.1); Sodium 137 mmol/L (137-145)
--- NOTE | 2020-04-20 16:28 | P.CONS ---
History of Present Illness - Reason for Consult Consult date: 04/20/20 Right leg abscess and cellulitis Requesting physician: Rosibel Steele - Chief Complaint Right leg pain swelling and redness x week - History of Present Illness Patient is a 59-year-old female who was recently admitted at this facility for right lower extremity cellulitis patient was treated with IV antibiotic therapy she did have some clinical improvement with vancomycin she was advised to continue with daptomycin in outpatient setting with the patient took for a few days and did have improvement subsequently the patient wants to get another town and did not want to continue with IV antibiotic she was switched over to Bactrim and Keflex With the patient has taken, patient presented to the office yesterday with worsening pain swelling and redness of t he right lower leg, patient denies any history of any trauma, patient describing the pain to be more of a dull aching to sharp about 7-8 out of 10 and no radiation with associated swelling and redness and possible fluctuance in that area and concern for underlying hematoma versus abscess patient was admitted directly to the hospital for surgical drainage of this area and IV antibiotic therapy, patient was evaluated by vascular surgery yesterday patient did have a I&D of this area no purulent material was seen patient did have cultures obtained she has been empirically started on vancomycin and infectious disease was consulted for further management of antibiotic therapy, as of this morning t he patient denies having any fever or any chills, overall pain and discomfort and slight decrease no chest pain no shortness breath no cough no nausea no vomiting no bowel pain or diarrhea Review of Systems Positive point has been mentioned in the HPI rest of the systems are negative Past Medical History Past Medical History: Asthma, Heart Failure, GERD/Reflux, Rheumatoid Arthritis (RA) Additional Past Medical History / Comment(s): BACK PAIN, cellulitis Rt ankle area since 03/02 went home with picc line and abx x2 weeks History of Any Multi-Drug Resistant Organisms: None Reported Past Surgical History: Adenoidectomy, Back Surgery, Hysterectomy, Tonsillectomy, Tubal Ligation Additional Past Surgical History / Comment(s): LEFT BUNIONECTOMY, LEFT WRIST SURGERY,cervical neck surgery Past Anesthesia/Blood Transfusion Reactions: No Reported Reaction Additional Past Anesthesia/Blood Transfusion Reaction / Comm: no hx blood transfusion Past Psychological History: Anxiety, Depression Smoking Status: Current every day smoker Past Alcohol Use History: Occasional Additional Past Alcohol Use History / Comment(s): started smoking at age 13,1ppd Past Drug Use History: None Reported - Past Family History Father Family Medical History: Cancer, Hypertension Additional Family Medical History / Comment(s): "black lung" Mother Family Medical History: Hypertension Brother(s) Family Medical History: No Reported History Sister(s) Family Medical History: No Reported History Son(s) Family Medical History: Asthma Daughter(s) Family Medical History: No Reported History Medications and Allergies Home Medications Medication Instructions Recorded Confirmed Type Acetaminophen Tab [Tylenol Tab] 1,000 mg PO Q6HR PRN 04/19/20 04/19/20 History Acetaminophen/Diphenhydramine 2 tab PO HS 04/19/20 04/19/20 History [Tylenol PM 500-25mg] Albuterol Sulfate [Ventolin HFA] 1 - 2 puff INHALATION RT-Q6H PRN 04/19/20 04/19/20 History Calcium Carbonate [Tums] 1,000 mg PO BID PRN 04/19/20 04/19/20 History Ibuprofen [Motrin Ib] 200 mg PO Q8H PRN 04/19/20 04/19/20 History Allergies Allergy/AdvReac Type Severity Reaction Status Date / Time No Known Allergies Allergy Verified 04/19/20 10:42 Physical Exam Vitals: Vital Signs Temp Pulse Resp BP Pulse Ox 04/20/20 07:00 97.9 F 92 17 131/86 93 L 04/20/20 01:22 98.5 F 84 18 143/84 98 04/19/20 18:46 98.5 F 79 18 120/76 97 04/19/20 14:48 98.5 F 82 16 95/63 95 04/19/20 10:25 98.2 F 88 16 118/79 95 GENERAL DESCRIPTION: Middle-aged female lying in bed, no distress. No tachypnea or accessory muscle of respiration use. HEENT: Shows Pallor , no scleral icterus. Oral mucous membrane is dry. No pha ryngeal erythema or thrush NECK: Trachea central, no thyromegaly. LUNGS: Unlabored breathing. Clear to auscultation anteriorly. No wheeze or crackle. HEART: S1, S2, regular rate and rhythm. No loud murmur ABDOMEN: Soft, no tenderness , guarding or rigidity, no organomegaly EXTREMITIES: Right lower leg is currently dressed up no was drainage on the dressing SKIN: No rash, no masses palpable. NEUROLOGICAL: The patient is awake, alert, oriented x3, mood and affect normal. Results CBC & Chem 7: 04/20/20 08:24 04/20/20 08:24 Labs: Abnormal Lab Results - Last 24 Hours (Table) 04/19/20 04/19/20 Range/Units 10:20 10:20 MCHC 30.7 L (31.0-37.0) g/dL ESR 75 H (0-20) mm/hr Sodium 135 L (137-145) mmol/L Carbon Dioxide 21 L (22-30) mmol/L Glucose 116 H (74-99) mg/dL C-Reactive Protein 35.8 H (<10.0) mg/L Microbiology - Last 24 Hours (Table) 04/19/20 16:00 Gram Stain - Preliminary Ankle - Right Wound Culture - Preliminary 04/19/20 16:00 Anaerobic Culture - Preliminary Ankle - Right Assessment and Plan Assessment: 1- patient with right lower extremity swelling redness and a fluctuant area in this patient who was recently diagnosed with cellulitis and has failed outpatient oral Keflex and Bactrim DS therapy with concern for underlying abscess possibly related to gram-positive skin shawn however the patient is status post I&D this area and the purulent drainage has been noticed cultures are currently pending (1) Cellulitis and abscess of right leg Current Visit: Yes Status: Acute Code(s): L03.115 - CELLULITIS OF RIGHT LOWER LIMB; L02.415 - CUTANEOUS ABSCESS OF RIGHT LOWER LIMB SNOMED Code(s): 352814157 Plan: 1-Vancomycin pharmacy to dose target trough of 15 while watching her kidney function and Vanco trough closely We will follow on clinical condition and cultures to further adjust medication if needed Thank you for this consultation will follow this patient with you Time with Patient: Greater than 30
--- NOTE | 2020-04-20 18:35 | P.PN ---
Subjective Progress Note Date: 04/20/20 Principal diagnosis: 53-year-old female admitted for right anterior millan and ankle abscess. Patient was recently treated for cell lightest in that area was subsequently discharged this year for 10 days of IV antibiotics after which patient felt little bit better started having swelling again patient had was seen in infectious disease clinic was subsequently sent in here for abscess drainage and IV antibiotics patient was started on IV vancomycin. Patient denied any fever chills nausea vomiting abdominal pain patient is complaining of pain moderate severity.patient doesn't have any leukocytosis at this time. 04/20/2020 Patient is seen and evaluated in follow up today status post incision and drainage with Dr. Fontanez yesterday. Patient continues to have discomfort of the right lower extremity and ankle with some swelling noted to the right foot. Foot is currently elevated on a pillow. Infectious disease following and patient is maintained on vancomycin at this time while awaiting cultures to finalize. Currently no reports of chest pain, shortness of breath, or palpitations. Patient is afebrile. No reports of nausea or vomiting and patient is tolerating diet. Objective - Vital Signs Vital signs: Vital Signs Temp 98.5 F 04/20/20 14:38 Pulse 81 04/20/20 15:47 Resp 17 04/20/20 15:47 BP 154/81 04/20/20 14:38 Pulse Ox 98 04/20/20 14:38 Intake & Output 04/19/20 04/20/20 04/20/20 18:59 06:59 18:59 Intake Total 250 Balance 250 Weight 90.718 kg Intake: IV 250 Vancomycin 1,500 mg In 250 Sodium Chloride 0.9% 250 ml @ 125 mls/hr IVPB ONCE ONE Rx#:[id number] Other: # Voids 3 - Exam GENERAL: The patient is alert and oriented x3, not in any acute distress. Well developed, well nourished. HEENT: Pupils are round and equally reacting to light. EOMI. No scleral icterus. No conjunctival pallor. Normocephalic, atraumatic. No pharyngeal erythema. No thyromegaly. CARDIOVASCULAR: S1 and S2 present. No murmurs, rubs, or gallops. PULMONARY: Chest is clear to auscultation, no wheezing or crackles. ABDOMEN: Soft, nontender, nondistended, normoactive bowel sounds. No palpable organomegaly. MUSCULOSKELETAL: No joint swelling or deformity. EXTREMITIES: No cyanosis, clubbing, or pedal edema. mild swelling noted of the right foot. NEUROLOGICAL: Gross neurological examination did not reveal any focal deficits. SKIN: redness and tenderness noted on the right anterior millan area just above the ankle status post I&D with surgical dressing that is dry and intact. redness improved. - Labs CBC & Chem 7: 04/20/20 08:24 04/20/20 08:24 Labs: Abnormal Lab Results - Last 24 Hours (Table) 04/20/20 04/20/20 Range/Units 08:24 08:24 MCHC 30.9 L (31.0-37.0) g/dL Chloride 112 H (98-107) mmol/L Carbon Dioxide 20 L (22-30) mmol/L Glucose 163 H (74-99) mg/dL Microbiology - Last 24 Hours (Table) 04/19/20 10:20 Blood Culture - Preliminary Blood No Growth after 24 hours 04/19/20 16:00 Gram Stain - Preliminary Ankle - Right Wound Culture - Preliminary 04/19/20 16:00 Anaerobic Culture - Preliminary Ankle - Right Assessment and Plan Assessment: -abscess, cellulitis of the right lower extremity patient underwent incision and drainage with Dr. Fontanez and cultures obtained. Infectious disease following. Patient on vancomycin -COPD without any acute exacerbation -Gastroesophageal reflux disease -continued nicotine use: Counseling was provided -Depression Plan: Continue with IV antibiotics of Vancomycin. Infectious disease following. Awaiting culture finalization to determine antibiotics for discharge. To continue with pain management and local wound care. Further recommendations to follow. Possible discharge in 24-48 hours.
[2020-04-20] MEDS ORDERED: HYDROcodone/APAP 7.5-325MG 1 EACH TAB ONE (21:00)
[2020-04-20] MEDS ORDERED: SODIUM CHLORIDE 0.9% 1,000 ML BAG ONE (21:00)
[2020-04-20] MEDS ORDERED: FAMOTIDINE 20 MG TAB ONE (21:00)
[2020-04-20] MEDS ORDERED: KETOROLAC 30 MG/ML 1 ML VIAL ONE (21:00)
[2020-04-21] MEDS ORDERED: HYDROcodone/APAP 7.5-325MG 1 EACH TAB ONE (04:30)
[2020-04-21] MEDS: NICOTINE 14MG/24HR PATCH TRANSDERM SCH (07:13)
[2020-04-21] MEDS: FAMOTIDINE 20 MG TAB PO SCH ×2 (07:13→13:01)
[2020-04-21] MEDS: ENOXAPARIN 40 MG/0.4 ML SYRINGE SQ SCH (07:13)
[2020-04-21] MEDS: KETOROLAC 30 MG/ML 1 ML VIAL IVP PRN ×2 (07:21→13:01)
[2020-04-21] MEDS ORDERED: VANCOMYCIN TROUGH DUE 1 EACH MISC MISCELLANE ONE (08:00)
[2020-04-21 08:01] LABS: African American GFR (CKD) >90 (>60 ml/min/1.73 sqM); Non-African American GFR(CKD) >90 (>60 ml/min/1.73 sqM)
[2020-04-21] MEDS: HYDROcodone/APAP 7.5-325MG 1 EACH TAB PO PRN (10:31)
[2020-04-21] MEDS: SODIUM CHLORIDE 0.9% 1,000 ML IV SCH (12:08)
[2020-04-21] MEDS: VANCOMYCIN 1,500 MG in SODIUM CHLORIDE 0.9% 250 ML IVPB SCH (12:08)
--- NOTE | 2020-04-21 15:31 | P.DS ---
Providers Date of admission: 04/19/20 10:02 Expected date of discharge: 04/21/20 Attending physician: Rosibel Steele Consults: 04/19/20 13:43 Consult Physician Urgent Consulting Provider: Bib Fontanez Consult Reason/Comments: right leg abscess for I & D and deep cultures Do you want consulting provider notified?: Yes 04/19/20 13:47 Consult Physician Routine Consulting Provider: Fadi Ly Consult Reason/Comments: Abscess Do you want consulting provider notified?: Yes Primary care physician: Vadim Roberts [facility] Course: Final diagnosis -abscess, cellulitis of the right lower extremity -COPD without any acute exacerbation -Gastroesophageal reflux disease -continued nicotine use: Counseling was provided -Depression Discharge disposition Patient is being discharged in a stable condition with guarded prognosis to Home. Patient will follow-up with Dr. Fierro upon discharge. She'll also follow- up with Dr. Ly in the outpatient setting. Patient Continue on oral antibiotics in the form of Keflex 500 mg 3 times daily for the next 10 days. Total time taken is 35 minutes. History of present illness This is an 59-year-old female who was recently admitted with Right anterior millan and ankle abscess and was being closely monitored. Patient also was found to have failed outpatient treatment since . Patient underwent incision and drainage with Dr. Fontanez and cultures were obtained. Preliminary culture still pending. Patient was initiated on vancomycin and infectious disease was following. Erythema and swelling of the right lower extremity and millan have improved and patient will be continued On oral Keflex 500 mg 3 times daily for the next 10 days. Patient will follow-up at the wound center in the outpatient setting. Patient would like to go home today. Currently no reports of chest pain, shortness of breath, or palpitations. Patient is afebrile. No reports of nausea or vomiting and patient is tolerating diet. On exam vital signs are stable. Temp is 97.8F, pulse is 83, respirations are 18, blood pressure is 162/88, oxygen saturation is 97% on room air. Cardio S1, S2 are muffled. Respiratory shows diminished breath sounds at the bases No wheezing or rhonchi noted. Abdomen is soft and nontender. Nervous system shows No focal deficits. Please refer to medication reconciliation sheet for a list of medications. Patient Condition at Discharge: Stable Plan - Discharge Summary Discharge Rx Participant: No New Discharge Prescriptions: New Cephalexin [Keflex] 500 mg PO Q8HR 10 Days #30 cap Continue Acetaminophen/Diphenhydramine [Tylenol PM 500-25mg] 2 tab PO HS Calcium Carbonate [Tums] 1,000 mg PO BID PRN PRN Reason: Heartburn Ibuprofen [Motrin Ib] 200 mg PO Q8H PRN PRN Reason: Pain Or Fever > 100.5 Albuterol Sulfate [Ventolin HFA] 1 - 2 puff INHALATION RT-Q6H PRN PRN Reason: Shortness Of Breath Acetaminophen Tab [Tylenol] 1,000 mg PO Q6HR PRN PRN Reason: Pain Or Fever > 100.5 Discharge Medication List Acetaminophen Tab [Tylenol] 1,000 mg PO Q6HR PRN 04/19/20 [History] Acetaminophen/Diphenhydramine [Tylenol PM 500-25mg] 2 tab PO HS 04/19/20 [History] Albuterol Sulfate [Ventolin HFA] 1 - 2 puff INHALATION RT-Q6H PRN 04/19/20 [History] Calcium Carbonate [Tums] 1,000 mg PO BID PRN 04/19/20 [History] Ibuprofen [Motrin Ib] 200 mg PO Q8H PRN 04/19/20 [History] Cephalexin [Keflex] 500 mg PO Q8HR 10 Days #30 cap 04/21/20 [Rx] Follow up Appointment(s)/Referral(s): Armando Fierro MD [Primary Care Provider] - 04/29/20 10:20 am Fadi Ly MD [STAFF PHYSICIAN] - 1 Week Activity/Diet/Wound Care/Special Instructions: activity limited until follow up continue with antibiotics until finished continue current diet follow up with primary care provider Discharge Disposition: HOME SELF-CARE
--- NOTE | 2020-04-21 15:36 | PN ---
PROGRESS NOTE DATE OF SERVICE: 04/21/2020 REASON FOR FOLLOWUP: Right leg cellulitis and a question of abscess. INTERVAL HISTORY: The patient is currently afebrile. The patient is feeling better, breathing comfortably. Overall pain and discomfort to the right leg have improved. No chest pain or cough. No abdominal pain or diarrhea. PHYSICAL EXAMINATION: Her blood pressure is 162/88 with a pulse of 83, temperature 97.8. She is 97% on room air. General description is a middle-aged female lying in bed in no distress. RESPIRATORY SYSTEM: Unlabored breathing. Clear to auscultation anteriorly. HEART: S1, S2. Regular rate and rhythm. ABDOMEN: Soft. No tenderness. Right leg swelling and redness have decreased. LABS: Wound culture so far negative. White count normal. DIAGNOSTIC IMPRESSION AND PLAN: Patient with right lower extremity cellulitis and a question of abscess, status post drainage. Culture has been negative so far. She will finish therapy with oral Keflex and close outpatient followup. Discussed with the nurse. Questions and concerns were answered. MMODL / IJN: [id number] /
[2020-04-22 08:40] VITALS: BP 162/88; PULSE 83; TEMP 97.8
== END 2020-04-21 14:58 | disposition home or self-care (01) ==
LOC: 4SSUR 10:02 → INTOOBSV 10:02 → UNDODISIN 04-21 14:58
PROVIDERS: ADMIT Internal Medicine; ATTEND Internal Medicine
DX: L03.115 Cellulitis of right lower limb (principal); J45.909 Unspecified asthma, uncomplicated; I50.9 Heart failure, unspecified; K21.9 Gastro-esophageal reflux disease without esophagitis; M06.9 Rheumatoid arthritis, unspecified; Z90.710 Acquired absence of both cervix and uterus; Z98.51 Tubal ligation status; Z98.890 Other specified postprocedural states; F41.9 Anxiety disorder, unspecified; F32.9 Major depressive disorder, single episode, unspecified; F17.210 Nicotine dependence, cigarettes, uncomplicated; Z80.1 Family history of malignant neoplasm of trachea, bronchus and lung; Z82.49 Family history of ischemic heart disease and other diseases of the circulatory system; Z82.5 Family history of asthma and other chronic lower respiratory diseases; J44.9 Chronic obstructive pulmonary disease, unspecified; E66.9 Obesity, unspecified; Z68.27 Body mass index [BMI] 27.0-27.9, adult; Z79.899 Other long term (current) drug therapy
CPT/HCPCS: 10060; 96365; 96366; 80048 ×2; 85652; 82565; 85025; 85027; 86140; 87040; 87070; 87205; 87075; G0378 ×3; G0379; S4990 ×3; J3370 ×2; J2001; J1650 ×2; J1885 ×3; 96361; 96372; 96375; 96376

== ENCOUNTER 2020-06-27 15:58 | Inpatient (IN) | payer MEDICARE ==
[2020-06-27] MEDS: NICOTINE 21MG/24HR PATCH TRANSDERM SCH (21:21)
[2020-06-27] MEDS: ACETAMINOPHEN TAB 500 MG TAB PO PRN (21:36)
[2020-06-27] MEDS: HYDROcodone/APAP 5-325MG 1 EACH TAB PO PRN (21:37)
[2020-06-27] MEDS ORDERED: VANCOMYCIN IV PER PHARMACY 1 EACH MISC MISCELLANE PRN (21:40)
[2020-06-27 22:30] LABS: Basophils % (A) 0 %; Eosinophils # (A) 0.2 k/uL (0-0.7); Eosinophils % (A) 3 %; HCT 42.3 % (34.0-46.0); Hypochromasia Slight; Lymphocytes % (A) 23 %; MCH 27.1 pg (25.0-35.0); MCHC 30.8 g/dL (31.0-37.0); MCV 87.9 fL (80.0-100.0); Monocytes # (A) 0.4 k/uL (0-1.0); Monocytes % (A) 4 %; Neutrophils # (A) 6.1 k/uL (1.3-7.7); Neutrophils % (A) 69 %; Platelet Count 335 k/uL (150-450); RBC 4.82 m/uL (3.80-5.40); RDW 13.4 % (11.5-15.5); WBC 8.9 k/uL (3.8-10.6)
[2020-06-27 22:43] LABS: C Reactive Protein 82.2 mg/L (<10.0); Calcium 9.1 mg/dL (8.4-10.2); Potassium 3.5 mmol/L (3.5-5.1)
[2020-06-27] MEDS ORDERED: VANCOMYCIN 2,000 MG in SODIUM CHLORIDE 0.9% 500 ML 500 ML IVPB ONE (23:00)
[2020-06-28] MEDS: HYDROcodone/APAP 5-325MG 1 EACH TAB PO PRN (04:49)
[2020-06-28 07:42] LABS: Basophils % (A) 1 %; Eosinophils # (A) 0.2 k/uL (0-0.7); Eosinophils % (A) 3 %; HCT 43.5 % (34.0-46.0); HGB 13.4 gm/dL (11.4-16.0); Lymphocytes # (A) 1.7 k/uL (1.0-4.8); Lymphocytes % (A) 23 %; MCH 27.1 pg (25.0-35.0); MCHC 30.9 g/dL (31.0-37.0); MCV 87.9 fL (80.0-100.0); Mean Platelet Volume 7.1; Monocytes # (A) 0.3 k/uL (0-1.0); Monocytes % (A) 5 %; Neutrophils # (A) 4.8 k/uL (1.3-7.7); Neutrophils % (A) 67 %; Platelet Count 325 k/uL (150-450); RBC 4.94 m/uL (3.80-5.40); RDW 13.7 % (11.5-15.5); WBC 7.2 k/uL (3.8-10.6)
[2020-06-28] MEDS: ACETAMINOPHEN TAB 500 MG TAB PO PRN (07:45)
[2020-06-28] MEDS: NICOTINE 21MG/24HR PATCH TRANSDERM SCH (07:46)
[2020-06-28 07:59] LABS: African American GFR (CKD) >90 (>60 ml/min/1.73 sqM); Anion Gap 5 mmol/L; Blood Urea Nitrogen 6 mg/dL (7-17); Calcium 9.1 mg/dL (8.4-10.2); Carbon Dioxide 32 mmol/L (22-30); Chloride 101 mmol/L (98-107); Glucose 103 mg/dL (74-99); Non-African American GFR(CKD) 87 (>60 ml/min/1.73 sqM); Potassium 3.8 mmol/L (3.5-5.1); Sodium 138 mmol/L (137-145)
[2020-06-28] MEDS ORDERED: HEPARIN SODIUM,PORCINE 5,000 UNIT/ML 1 ML VIAL SQ SCH (09:00)
[2020-06-28] MEDS ORDERED: FAMOTIDINE 20 MG/2 ML VIAL IV SCH (09:00)
[2020-06-28] MEDS: KETOROLAC 15 MG/ML 1 ML VIAL IVP PRN ×2 (09:25→19:51)
[2020-06-28] MEDS: FAMOTIDINE 20 MG TAB PO SCH ×2 (09:36→21:39)
[2020-06-28] MEDS ORDERED: VANCOMYCIN 2,000 MG in SODIUM CHLORIDE 0.9% 500 ML 500 ML IVPB ONE (10:00)
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
[2020-06-28] MEDS: HYDROcodone/APAP 7.5-325MG 1 EACH TAB PO PRN ×3 (11:14→23:02)
--- NOTE | 2020-06-28 12:46 | CT ---
EXAMINATION TYPE: CT lower leg RT w con DATE OF EXAM: 06/28/2020 COMPARISON: CT right lower leg 03/21/2028. HISTORY: Right leg abscess. Large anterior ankle/lower leg swelling and redness, unresponsive to anti biotics. CT DLP: 147.8 mGycm Automated exposure control for dose reduction was used. TECHNIQUE: Contiguous axial imaging of the right lower extremity performed with intravenous contrast. Coronal and sagittal reformatted images generated. Three-dimensional images generated and utilized o n a separate workstation. CONTRAST: Performed with IV Contrast, patient injected with 100 mL of Isovue 300. FINDINGS: Within the right tibialis anterior muscle, starting at the mid lower leg, there is a new intramuscula r abscess measuring up to 1.6 x 1.4 x 15.4 cm AP, transverse, and craniocaudal (204:95, 203:26). This fluid collection crosses the ankle joint anteriorly and appears contiguous with the more distal absc ess pocket anterior to the ankle joint measuring up to 3.2 x 5.4 x 8.3 cm AP, transverse, and cranioc audal (204:125, 203:33). There is associated subcutaneous edema and anterior skin thickening of the d istal lower leg and anterior ankle. There is no evidence of osseous erosion or periosteal reaction. N o acute fracture or dislocation. Vasculature is patent. 3-dimensional images are consistent with the findings. IMPRESSION: Right anterior tibialis long segment intramuscular abscess measuring up to 1.6 x 1.4 x 15.4 cm of the mid and distal lower leg. This fluid collection crosses the ankle anteriorly to a larger abscess poc ket anterior the ankle measuring 3.2 x 5.4 x 8.3 cm. There is associated edema and cellulitis. No oss eous erosion.
[2020-06-28] MEDS ORDERED: LACTATED RINGERS 1,000 ML IV ONE (13:52)
--- NOTE | 2020-06-28 14:07 | P.GSCN ---
History of Present Illness History of present illness: 59-year-old white female, patient has a abscess right ankle for the last few months patient has been admitted and computed tomography scan showed there is a large abscess of the right ankle with cellulitis and edema of the foot patient is scheduled to have I&D of the abscess Medical history history of hypertension reflux wound and arthritis Neck examination neck is supple no bruit appreciated Chest clear first and second sound normal Abdomen soft nontender Vascular femorals are palpable patient has a large abscess on the right ankle with cellulitis and tenderness noted Plan is I and D of the abscess and expression of the wound Past Medical History Past Medical History: Asthma, Heart Failure, GERD/Reflux, Rheumatoid Arthritis (RA) Additional Past Medical History / Comment(s): BACK PAIN, cellulitis Rt ankle ar ea since 03/02 went home with picc line and abx History of Any Multi-Drug Resistant Organisms: None Reported Past Surgical History: Adenoidectomy, Back Surgery, Hysterectomy, Tonsillectomy, Tubal Ligation Additional Past Surgical History / Comment(s): LEFT BUNIONECTOMY, LEFT WRIST SURGERY,cervical neck surgery Past Anesthesia/Blood Transfusion Reactions: No Reported Reaction Additional Past Anesthesia/Blood Transfusion Reaction / Comm: no hx blood transfusion Past Psychological History: Anxiety, Depression Smoking Status: Current every day smoker Past Alcohol Use History: Occasional Additional Past Alcohol Use History / Comment(s): started smoking at age 13,1ppd Past Drug Use History: None Reported - Past Family History Father Family Medical History: Cancer, Hypertension Additional Family Medical History / Comment(s): "black lung" Mother Family Medical History: Hypertension Brother(s) Family Medical History: No Reported History Sister(s) Family Medical History: No Reported History Son(s) Family Medical History: Asthma Daughter(s) Family Medical History: No Reported History Medications and Allergies Home Medications Medication Instructions Recorded Confirmed Type Acetaminophen/Diphenhydramine 2 tab PO HS 04/19/20 06/27/20 History [Tylenol PM 500-25mg] Calcium Carbonate [Tums] 1,000 mg PO QID PRN 04/19/20 06/27/20 History Ibuprofen [Motrin Ib] 400 mg PO Q4H PRN 04/19/20 06/27/20 History Allergies Allergy/AdvReac Type Severity Reaction Status Date / Time No Known Allergies Allergy Verified 04/19/20 10:42 Surgical - Exam Vital Signs Temp Pulse Resp BP Pulse Ox 98.5 F 80 18 138/77 98 06/27/20 20:01 06/27/20 20:01 06/27/20 20:01 06/27/20 20:01 06/27/20 20:01 Results - Labs 06/28/20 07:14 06/28/20 07:14 Abnormal Lab Results - Last 24 Hours (Table) 06/27/20 06/27/20 06/28/20 Range/Units 22:05 22:05 07:14 MCHC 30.8 L 30.9 L (31.0-37.0) g/dL Sodium 135 L (137-145) mmol/L Carbon Dioxide (22-30) mmol/L BUN (7-17) mg/dL Glucose 105 H (74-99) mg/dL C-Reactive Protein 82.2 H (<10.0) mg/L 06/28/20 Range/Units 07:14 MCHC (31.0-37.0) g/dL Sodium (137-145) mmol/L Carbon Dioxide 32 H (22-30) mmol/L BUN 6 L (7-17) mg/dL Glucose 103 H (74-99) mg/dL C-Reactive Protein (<10.0) mg/L Diabetes panel 06/27/20 06/28/20 Range/Units 22:05 07:14 Sodium 135 L 138 (137-145) mmol/L Potassium 3.5 3.8 (3.5-5.1) mmol/L Chloride 100 101 (98-107) mmol/L Carbon Dioxide 28 32 H (22-30) mmol/L BUN 7 6 L (7-17) mg/dL Creatinine 0.86 0.76 (0.52-1.04) mg/dL Glucose 105 H 103 H (74-99) mg/dL Calcium 9.1 9.1 (8.4-10.2) mg/dL Calcium panel 06/27/20 06/28/20 Range/Units 22:05 07:14 Calcium 9.1 9.1 (8.4-10.2) mg/dL Pituitary panel 06/27/20 06/28/20 Range/Units 22:05 07:14 Sodium 135 L 138 (137-145) mmol/L Potassium 3.5 3.8 (3.5-5.1) mmol/L Chloride 100 101 (98-107) mmol/L Carbon Dioxide 28 32 H (22-30) mmol/L BUN 7 6 L (7-17) mg/dL Creatinine 0.86 0.76 (0.52-1.04) mg/dL Glucose 105 H 103 H (74-99) mg/dL Calcium 9.1 9.1 (8.4-10.2) mg/dL Adrenal panel 06/27/20 06/28/20 Range/Units 22:05 07:14 Sodium 135 L 138 (137-145) mmol/L Potassium 3.5 3.8 (3.5-5.1) mmol/L Chloride 100 101 (98-107) mmol/L Carbon Dioxide 28 32 H (22-30) mmol/L BUN 7 6 L (7-17) mg/dL Creatinine 0.86 0.76 (0.52-1.04) mg/dL Glucose 105 H 103 H (74-99) mg/dL Calcium 9.1 9.1 (8.4-10.2) mg/dL
[2020-06-28] MEDS ORDERED: MIDAZOLAM 2 MG/2 ML VIAL ONE (14:48)
[2020-06-28] MEDS ORDERED: fentaNYL (PF) 50 MCG/ML 2 ML AMP ONE (14:48)
[2020-06-28] MEDS ORDERED: PROPOFOL 10 MG/ML 20 ML VIAL IV ONE (14:48)
[2020-06-28] MEDS ORDERED: KETAMINE 10 MG/ML 20 ML VIAL ONE (14:48)
[2020-06-28] MEDS ORDERED: HYDROmorphone (PF) 1 MG/ML ONE (14:48)
[2020-06-28] MEDS ORDERED: LIDOCAINE 1% INJ 10MG/ML (20 ML MDV) SQ ONE (15:14)
--- NOTE | 2020-06-28 16:40 | CONS ---
DATE OF CONSULTATION: 06/28/2020 This is a 59-year-old female patient has been admitted with history of abscess at the right ankle with marked redness and swelling and tenderness noted. This started about a few months ago when patient had swelling and tenderness noted. Patient was treated with antibiotic as an outpatient and also patient has been readmitted, CT scan has been ordered, which shows a large abscess pocket anterior to the ankle measured 3.2 x 5.4 x 8.3. There is associated cellulitis noted. MEDICAL HISTORY: History of asthma, heart failure, rheumatoid arthritis. SURGICAL HISTORY: Patient had back surgery and also patient had a right ankle area with redness and swelling since few months. SURGICAL HISTORY: Patient had back surgery, hysterectomy and tonsillectomy and tubal ligation. PHYSICAL EXAMINATION: Patient was seen in her room. NECK: Supple, trachea central. CHEST: Clear. ABDOMEN: Soft, nontender. Femoral pulses are present. The patient has a large abscess at the ankle with marked cellulitis and tenderness noted. PLAN: Discussed with the patient. Will need an I and D of the abscess and wound exploration. Risks and complications discussed. MMODL / IJN: [id number] / LIDIA
[2020-06-28] MEDS: VANCOMYCIN 1,750 MG in SODIUM CHLORIDE 0.9% 500 ML 500 ML IVPB SCH (21:39)
--- NOTE | 2020-06-28 22:21 | P.CONS ---
History of Present Illness - Reason for Consult Consult date: 06/28/20 Right leg abscess and cellulitis Requesting physician: Rosibel Steele - Chief Complaint Right leg pain swelling and redness 4 days - History of Present Illness Patient is 59-year-old female with a past medical history significant for right lower extremity abscess and cellulitis in this patient did have previous surgical drainage culture were negative at that point and the patient was treated with IV antibiotic therapy followed by oral patient did have imp rovement subsequently presenting back to the office yesterday with concern for increasing swelling redness of the right lower leg with his symptom has been getting worse for the last 4 days before presenting to the hospital. Denies having history of any trauma she was complaining of pain and swelling to the right lower leg secondary to pain to be throbbing intensity almost 78 out of 10 and no radiation with associated redness but no drainage did have some chills but denies high-grade fever patient was admitted directly to the hospital for further management including a CT and possible surgical drainage patient did have a CT of the right leg completed which did show 2 different pockets of fluid collection suspicious for abscess versus surgery has seen the patient and planning for surgical drainage of these abscesses, patient has been afebrile so far white count is normal however did have elevated CRP of 82 in function is normal Review of Systems Positive point has been mentioned in the HPI rest of the systems are negative Past Medical History Past Medical History: Asthma, Heart Failure, GERD/Reflux, Rheumatoid Arthritis (RA) Additional Past Medical History / Comment(s): BACK PAIN, cellulitis Rt ankle area since 03/02 went home with picc line and abx History of Any Multi-Drug Resistant Organisms: None Reported Past Surgical History: Adenoidectomy, Back Surgery, Hysterectomy, Tonsillectomy, Tubal Ligation Additional Past Surgical History / Comment(s): LEFT BUNIONECTOMY, LEFT WRIST SURGERY,cervical neck surgery Past Anesthesia/Blood Transfusion Reactions: No Reported Reaction Additional Past Anesthesia/Blood Transfusion Reaction / Comm: no hx blood transfusion Past Psychological History: Anxiety, Depression Smoking Status: Current every day smoker Past Alcohol Use History: Occasional Additional Past Alcohol Use History / Comment(s): started smoking at age 13,1ppd Past Drug Use History: None Reported - Past Family History Father Family Medical History: Cancer, Hypertension Additional Family Medical History / Comment(s): "black lung" Mother Family Medical History: Hypertension Brother(s) Family Medical History: No Reported History Sister(s) Family Medical History: No Reported History Son(s) Family Medical History: Asthma Daughter(s) Family Medical History: No Reported History Medications and Allergies Home Medications Medication Instructions Recorded Confirmed Type Acetaminophen/Diphenhydramine 2 tab PO HS 04/19/20 06/27/20 History [Tylenol PM 500-25mg] Calcium Carbonate [Tums] 1,000 mg PO QID PRN 04/19/20 06/27/20 History Ibuprofen [Motrin Ib] 400 mg PO Q4H PRN 04/19/20 06/27/20 History Allergies Allergy/AdvReac Type Severity Reaction Status Date / Time No Known Allergies Allergy Verified 04/19/20 10:42 Physical Exam Vitals: Vital Signs Temp Pulse Resp BP Pulse Ox 06/28/20 11:30 98.1 F 96 18 159/60 97 06/28/20 07:59 98.0 F 94 18 120/69 95 06/28/20 03:50 66 18 06/28/20 03:48 98.1 F 66 18 136/82 98 06/27/20 23:11 98.4 F 76 18 144/88 97 06/27/20 23:07 80 18 06/27/20 20:01 98.5 F 80 18 138/77 98 Intake and Output 06/27/20 06/28/20 06/28/20 22:59 06:59 14:59 Intake Total 240 480 700 Balance 240 480 700 Intake: Intake, IV Titration 500 Amount Vancomycin 2,000 mg In 500 Sodium Chloride 0.9% 500 ml 500 ml @ 167 mls/hr IVPB ONCE ONE Rx#: [id number] Oral 240 480 200 Other: Voiding Method Toilet Toilet # Voids 2 1 Weight 86.4 kg 86 kg GENERAL DESCRIPTION: Middle-aged female lying in bed, no distress. No tachypnea or accessory muscle of respiration use. HEENT: Shows Pallor , no scleral icterus. Oral mucous membrane is dry. No pharyngeal erythema or thrush NECK: Trachea central, no thyromegaly. LUNGS: Unlabored breathing. Clear to auscultation anteriorly. No wheeze or crackle. HEART: S1, S2, regular rate and rhythm. No loud murmur ABDOMEN: Soft, no tenderness , guarding or rigidity, no organomegaly EXTREMITIES: Right anterior leg with diffuse swelling redness slightly fluctuant and tender to touch SKIN: No rash, no masses palpable. NEUROLOGICAL: The patient is awake, alert, oriented x3, mood and affect normal. Results CBC & Chem 7: 06/28/20 07:14 06/28/20 07:14 Labs: Abnormal Lab Results - Last 24 Hours (Table) 06/27/20 06/27/20 06/28/20 Range/Units 22:05 22:05 07:14 MCHC 30.8 L 30.9 L (31.0-37.0) g/dL Sodium 135 L (137-145) mmol/L Carbon Dioxide (22-30) mmol/L BUN (7-17) mg/dL Glucose 105 H (74-99) mg/dL C-Reactive Protein 82.2 H (<10.0) mg/L 06/28/20 Range/Units 07:14 MCHC (31.0-37.0) g/dL Sodium (137-145) mmol/L Carbon Dioxide 32 H (22-30) mmol/L BUN 6 L (7-17) mg/dL Glucose 103 H (74-99) mg/dL C-Reactive Protein (<10.0) mg/L Assessment and Plan Assessment: 1- patient presented to hospital with right leg abscess and cellulitis which seems to be recurrent and likely concern for gram-positive skin shawn for the strep and possibly community associated MRSA (1) Cellulitis and abscess of right leg Current Visit: Yes Status: Acute Code(s): L03.115 - CELLULITIS OF RIGHT LOWER LIMB; L02.415 - CUTANEOUS ABSCESS OF RIGHT LOWER LIMB SNOMED Code(s): 599104008 Plan: 1- Vancomycin pharmacy to dose target trough of 15 while watching kidney function and Vanco trough closely 2- await surgical drainage and deep cultures We will follow on clinical condition and cultures to further adjust medication if needed Thank you for this consultation will follow this patient with you Time with Patient: Greater than 30
--- NOTE | 2020-06-29 00:34 | OP ---
OPERATIVE REPORT PREOPERATIVE DIAGNOSIS: Large abscess right ankle. POSTOPERATIVE DIAGNOSIS: Large abscess right ankle. OPERATION: I and D of the abscess right ankle and exploration of the wound. DESCRIPTION OF THE PROCEDURE: This patient has been admitted with a large abscess on the right ankle. She had this for the past few months. No history of trauma or any insect bite. The patient had a large abscess with cellulitis and tenderness of the right ankle. The patient was brought to the operating room. Right foot was prepped and draped in the usual sterile manner. Under local and IV sedation, a longitudinal incision made at the ankle, deepened through skin, fat and fascia. There was a large abscess which was drained and we took some deep culture. The wound was copiously irrigated with hydrogen peroxide and saline. No active bleeding was noted. Half-inch iodoform gauze was packed with the wound. Dressing applied. Patient transferred to the recovery room in satisfactory condition. MMODL / IJN: [id number] /
[2020-06-29] MEDS: KETOROLAC 15 MG/ML 1 ML VIAL IVP PRN ×4 (02:13→23:02)
[2020-06-29] MEDS: HYDROcodone/APAP 7.5-325MG 1 EACH TAB PO PRN ×3 (05:15→20:37)
[2020-06-29 07:55] LABS: African American GFR (CKD) >90 (>60 ml/min/1.73 sqM); Non-African American GFR(CKD) >90 (>60 ml/min/1.73 sqM)
[2020-06-29] MEDS: FAMOTIDINE 20 MG TAB PO SCH ×2 (08:53→20:34)
[2020-06-29] MEDS: NICOTINE 21MG/24HR PATCH TRANSDERM SCH (08:53)
[2020-06-29] MEDS: VANCOMYCIN 1,750 MG in SODIUM CHLORIDE 0.9% 500 ML 500 ML IVPB SCH ×2 (08:53→20:33)
[2020-06-29] MEDS: ENOXAPARIN 40 MG/0.4 ML SYRINGE SQ SCH (08:53)
--- NOTE | 2020-06-29 10:15 | P.PN ---
Subjective 59-year-old the female was admitted for abscess in the right anterior ankle area. Patient underwent incision and drainage with significant amount of purulent drainage from that area. Patient is presently on vancomycin which will be continued. Patient is still having pain in that area. Constitutional: Denied any fatigue denied any fever. Cardio vascular: denied any chest pain, palpitations Gastrointestinal denied any nausea vomiting Pulmonary: Denied any shortness of breath cough Neurologic denied any new focal deficits All inpatient medications were reviewed and appropriate changes in these medications as dictated in the interval history and assessment and plan. Objective - Vital Signs Vital signs: Vital Signs Temp 98.2 F 06/28/20 23:00 Pulse 93 06/29/20 08:00 Resp 16 06/29/20 08:00 BP 133/78 06/29/20 08:00 Pulse Ox 95 06/29/20 08:00 Intake & Output 06/28/20 06/29/20 06/29/20 18:59 06:59 18:59 Intake Total 1775 960 240 Output Total 5 Balance 1770 960 240 Weight 87.4 kg Intake: IV 850 Intake, IV Titration 500 Amount Vancomycin 2,000 mg In 500 Sodium Chloride 0.9% 500 ml 500 ml @ 167 mls/hr IVPB ONCE ONE Rx#: [id number] Oral 425 960 240 Output: Estimated Blood Loss 5 Other: Voiding Method Toilet Toilet # Voids 2 1 - Exam PHYSICAL EXAMINATION: GENERAL: The patient is alert and oriented x3, not in any acute distress. Well developed, well nourished. HEENT: Pupils are round and equally reacting to light. EOMI. No scleral icterus. No conjunctival pallor. Normocephalic, atraumatic. No pharyngeal erythema. No thyromegaly. CARDIOVASCULAR: S1 and S2 present. No murmurs, rubs, or gallops. PULMONARY: Chest is clear to auscultation, no wheezing or crackles. ABDOMEN: Soft, nontender, nondistended, normoactive bowel sounds. No palpable organomegaly. MUSCULOSKELETAL: No joint swelling or deformity. EXTREMITIES: No cyanosis, clubbing, or pedal edema. NEUROLOGICAL: Gross neurological examination did not reveal any focal deficits. SKIN: Right ankle is status post I&D and postsurgically pack - Labs CBC & Chem 7: 06/28/20 07:14 06/29/20 06:51 Labs: Microbiology - Last 24 Hours (Table) 06/27/20 22:05 Blood Culture - Preliminary Blood No Growth after 24 hours 06/28/20 15:23 Gram Stain - Preliminary Ankle - Right Wound Culture - Preliminary 06/28/20 15:23 Anaerobic Culture - Preliminary Ankle - Right Assessment and Plan Plan: -Abscess of the right ankle: Patient is status post incision and drainage and is on vancomycin. -Asthma without any acute exacerbation -gastroesophageal reflux disease -depression -Continued nicotine use: Counseling was provided Due to prophylaxis with Lovenox.
--- NOTE | 2020-06-29 11:02 | PN ---
PROGRESS NOTE A 59-year-old female, she had a large abscess on the ankle. She has been to the hospital for few more times for the same problem. Yesterday we took her to the OR and did drain the abscess. There is a large amount of pus came out which pus was taken for culture. Wound was copiously irrigated with peroxide and we packed it, today we have changed the dressing. The patient has some slight redness of the skin. No active discharge noted. PLAN: Continue with the IV antibiotic. We will change the dressing daily. MMODL / IJN: [id number] /
--- NOTE | 2020-06-29 17:26 | PN ---
PROGRESS NOTE DATE OF SERVICE: 06/29/2020 REASON FOR FOLLOWUP: Right leg abscess and cellulitis. INTERVAL HISTORY: The patient is currently afebrile. The patient was taken to the OR and did have I&D of the right leg abscess. She was noted to have significant purulent drainage. Culture has been obtained, currently pending. The patient denies having any chest pain or cough. No abdominal pain or diarrhea. PHYSICAL EXAMINATION: Her blood pressure is 133/70 with a pulse of 93, temperature 98.2. She is 95% on room air. General description is a middle-aged female lying in bed in no distress. RESPIRATORY SYSTEM: Unlabored breathing. Clear to auscultation anteriorly. HEART: S1, S2. Regular rate and rhythm. ABDOMEN: Soft. No tenderness. Right leg is currently dressed up. No obvious drainage on the dressing. LABS: Wound culture pending. Blood culture negative. DIAGNOSTIC IMPRESSION AND PLAN: Patient with right lower extremity abscess, recurrent, status post drainage. Cultures are currently pending. Will keep the patient on vancomycin while waiting for the culture to finalize. However, in view of the extensive amount of infection, she will benefit from outpatient antibiotic therapy . Continue with supportive care. MMODL / IJN: [id number] /
[2020-06-30 00:58] VITALS: RESP 16
[2020-06-30] MEDS: HYDROcodone/APAP 7.5-325MG 1 EACH TAB PO PRN ×3 (03:13→20:50)
[2020-06-30] MEDS: VANCOMYCIN 1,750 MG in SODIUM CHLORIDE 0.9% 500 ML 500 ML IVPB SCH (08:40)
[2020-06-30] MEDS: FAMOTIDINE 20 MG TAB PO SCH ×2 (08:41→20:50)
[2020-06-30] MEDS: NICOTINE 21MG/24HR PATCH TRANSDERM SCH (08:41)
[2020-06-30] MEDS: ENOXAPARIN 40 MG/0.4 ML SYRINGE SQ SCH (08:41)
[2020-06-30 08:43] LABS: African American GFR (CKD) >90 (>60 ml/min/1.73 sqM); Anion Gap 3 mmol/L; Blood Urea Nitrogen 6 mg/dL (7-17); Calcium 8.6 mg/dL (8.4-10.2); Carbon Dioxide 33 mmol/L (22-30); Chloride 104 mmol/L (98-107); Glucose 101 mg/dL (74-99); Non-African American GFR(CKD) 85 (>60 ml/min/1.73 sqM); Potassium 4.4 mmol/L (3.5-5.1); Sodium 140 mmol/L (137-145)
[2020-06-30] MEDS: KETOROLAC 15 MG/ML 1 ML VIAL IVP PRN ×2 (08:46→17:14)
[2020-06-30] MEDS ORDERED: VANCOMYCIN TROUGH DUE 1 EACH MISC MISCELLANE ONE (09:00)
--- NOTE | 2020-06-30 09:37 | PN ---
PROGRESS NOTE A 59-year-old female patient, I and D of the abscess, dorsal aspect of the foot. Patient is on IV antibiotic. We have changed the dressing today. There is still some drainage noted. PLAN: We will use excess silver rope and IV antibiotic. MMPARAGL / IJN: [id number] /
--- NOTE | 2020-06-30 10:44 | P.PN ---
Subjective 59-year-old the female was admitted for abscess in the right anterior ankle area. Patient underwent incision and drainage with significant amount of purulent drainage from that area. Patient is presently on vancomycin which will be continued. Patient is still having pain in that area. 06/30/2020 Patient is overall clinical doing well patient has a to be hemolytic streptococci patient antibiotics are probably can be switched to Rocephin. Vas cular surgery is recommending packing tomorrow too. Constitutional: Denied any fatigue denied any fever. Cardio vascular: denied any chest pain, palpitations Gastrointestinal denied any nausea vomiting Pulmonary: Denied any shortness of breath cough Neurologic denied any new focal deficits All inpatient medications were reviewed and appropriate changes in these medications as dictated in the interval history and assessment and plan. Objective - Vital Signs Vital signs: Vital Signs Temp 98.4 F 06/29/20 23:00 Pulse 75 06/30/20 08:00 Resp 16 06/30/20 08:00 BP 128/89 06/30/20 08:00 Pulse Ox 98 06/30/20 08:00 Intake & Output 06/29/20 06/30/20 06/30/20 18:59 06:59 18:59 Intake Total 1110 1020 100 Balance 1110 1020 100 Weight 88.4 kg Intake: Oral 1110 1020 100 Other: Voiding Method Toilet # Voids 1 1 - Exam PHYSICAL EXAMINATION: GENERAL: The patient is alert and oriented x3, not in any acute distress. Well developed, well nourished. HEENT: Pupils are round and equally reacting to light. EOMI. No scleral icterus. No conjunctival pallor. Normocephalic, atraumatic. No pharyngeal erythema. No thyromegaly. CARDIOVASCULAR: S1 and S2 present. No murmurs, rubs, or gallops. PULMONARY: Chest is clear to auscultation, no wheezing or crackles. ABDOMEN: Soft, nontender, nondistended, normoactive bowel sounds. No palpable o rganomegaly. MUSCULOSKELETAL: No joint swelling or deformity. EXTREMITIES: No cyanosis, clubbing, or pedal edema. NEUROLOGICAL: Gross neurological examination did not reveal any focal deficits. SKIN: Right ankle is status post I&D and postsurgically pack - Labs CBC & Chem 7: 06/28/20 07:14 06/30/20 08:05 Labs: Abnormal Lab Results - Last 24 Hours (Table) 06/30/20 Range/Units 08:05 Carbon Dioxide 33 H (22-30) mmol/L BUN 6 L (7-17) mg/dL Glucose 101 H (74-99) mg/dL Microbiology - Last 24 Hours (Table) 06/27/20 22:05 Blood Culture - Preliminary Blood No Growth after 48 hours 06/28/20 15:23 Gram Stain - Preliminary Ankle - Right Wound Culture - Preliminary Beta Hemolytic Strep Group C Assessment and Plan Plan: -Abscess of the right ankle: Patient is status post incision and drainage and is on vancomycin. -Asthma without any acute exacerbation -gastroesophageal reflux disease -depression -Continued nicotine use: Counseling was provided Due to prophylaxis with Lovenox.
--- NOTE | 2020-06-30 23:05 | PN ---
PROGRESS NOTE DATE OF SERVICE: 06/30/2020 REASON FOR FOLLOWUP: Right lower extremity abscess and cellulitis. INTERVAL HISTORY: The patient is currently afebrile. She is breathing comfortably. The patient denies having any chest pain or shortness of breath or cough. No nausea, no vomiting. No abdominal pain. Overall pain to the right leg is currently controlled. PHYSICAL EXAMINATION: Blood pressure 132/86, pulse of 89, temperature is 97.9. She is 97% on room air. General description is a middle-aged female lying in bed in no distress. RESPIRATORY SYSTEM: Unlabored breathing, clear to auscultation anteriorly. HEART: S1, S2. Regular rate and rhythm. ABDOMEN: Soft, no tenderness. Right leg wound is currently dressed, no drainage on the dressing. LABS: BUN of 6, creatinine 0.77. Wound culture with beta-hemolytic group C strep. DIAGNOSTIC IMPRESSION AND PLAN: Patient with right lower extremity abscess, status post surgical drainage. Culture has been positive for group C strep. Patient's antibiotic has been adjusted to cefazolin 2 grams q.8 hours. However, in view of the extensive infection will be switching her over to Rocephin 2 grams daily for at least 2 to 3 weeks depending on clinical response. Local wound care per Surgery. Continue supportive care. MMODL / IJN: [id number] /
[2020-07-01] MEDS: HYDROcodone/APAP 7.5-325MG 1 EACH TAB PO PRN ×2 (05:27→12:25)
[2020-07-01] MEDS: NICOTINE 21MG/24HR PATCH TRANSDERM SCH (08:44)
[2020-07-01] MEDS: ENOXAPARIN 40 MG/0.4 ML SYRINGE SQ SCH (08:44)
[2020-07-01] MEDS: FAMOTIDINE 20 MG TAB PO SCH (08:44)
[2020-07-01] MEDS: KETOROLAC 15 MG/ML 1 ML VIAL IVP PRN (08:55)
[2020-07-01 09:39] VITALS: BP 133/78; PULSE 84; TEMP 96.8
[2020-07-01 09:50] LABS: African American GFR (CKD) >90 (>60 ml/min/1.73 sqM); Non-African American GFR(CKD) 87 (>60 ml/min/1.73 sqM)
--- NOTE | 2020-07-01 11:15 | PN ---
PROGRESS NOTE This is a 59-year-old white female. Patient has a large abscess right ankle. The patient had an I and D of the abscess. We have been treating with local wound care and IV antibiotics. Today, we have changed the dressing. There is less redness and less discharge noted. The wound was irrigated with saline and placed Aquacel silver rope. PLAN: Patient will be going home. I would like to see her in the wound clinic at [facility] in the afternoon. The patient should change the dressing daily. MMODL / IJN: [id number] /
--- NOTE | 2020-07-01 12:16 | P.DS ---
Providers Date of admission: 06/27/20 19:48 Attending physician: Rosibel Steele Consults: 06/27/20 21:20 Consult Physician Routine Consulting Provider: Fadi Ly Consult Reason/Comments: rt ankle infection Do you want consulting provider notified?: Yes, Notify in am 06/27/20 21:40 Consult Physician Routine Consulting Provider: Bib Fontanez Consult Reason/Comments: right leg abscess for I&D and deep cultures Do you want consulting provider notified?: Yes [facility] 59-year-old the female was admitted for abscess in the right anterior ankle area. Patient underwent incision and drainage with significant amount of purulent drainage from that area. Patient is presently on vancomycin which will be continued. Patient is still having pain in that area. 06/30/2020 Patient is overall clinical doing well patient has a to be hemolytic streptococci patient antibiotics are probably can be switched to Rocephin. Vascular surgery is recommending packing tomorrow too. 07/01/2020 Patient will be discharged on the about 2 weeks of Rocephin as per recommendations from infectious diseases patient had a PICC line patient will be discharged home with home care patient will follow with a stress surgery and ID closely along with PCP. PHYSICAL EXAMINATION: GENERAL: The patient is alert and oriented x3, not in any acute distress. Well developed, well nourished. HEENT: Pupils are round and equally reacting to light. EOMI. No scleral icterus. No conjunctival pallor. Normocephalic, atraumatic. No pharyngeal erythema. No thyromegaly. CARDIOVASCULAR: S1 and S2 present. No murmurs, rubs, or gallops. PULMONARY: Chest is clear to auscultation, no wheezing or crackles. ABDOMEN: Soft, nontender, nondistended, normoactive bowel sounds. No palpable organomegaly. MUSCULOSKELETAL: No joint swelling or deformity. EXTREMITIES: No cyanosis, clubbing, or pedal edema. NEUROLOGICAL: Gross neurological examination did not reveal any focal deficits. SKIN: Right ankle is status post I&D and postsurgically pack does have swelling in the right leg Assessment and Plan Plan: -Abscess of the right ankle: Patient is status post incision and drainage, patient has a group B streptococci and patient was switched to Rocephin -Asthma without any acute exacerbation -gastroesophageal reflux disease -depression - nicotine use: Counseling was provided Plan - Discharge Summary Discharge Rx Participant: No New Discharge Prescriptions: New HYDROcodone/APAP 7.5-325MG [[place] 7.5-325] 1 tab PO Q4H PRN #20 tab PRN Reason: Pain cefTRIAXone [Rocephin] 2,000 mg IVP Q24HR #21 vial Discontinued Acetaminophen/Diphenhydramine [Tylenol PM 500-25mg] 2 tab PO HS No Action Calcium Carbonate [Tums] 1,000 mg PO QID PRN PRN Reason: Heartburn Ibuprofen [Motrin Ib] 400 mg PO Q4H PRN PRN Reason: Pain Discharge Medication List Calcium Carbonate [Tums] 1,000 mg PO QID PRN 04/19/20 [History] Ibuprofen [Motrin Ib] 400 mg PO Q4H PRN 04/19/20 [History] HYDROcodone/APAP 7.5-325MG [[place] 7.5-325] 1 tab PO Q4H PRN #20 tab 07/01/20 [Rx] cefTRIAXone [Rocephin] 2,000 mg IVP Q24HR #21 vial 07/01/20 [Rx] Follow up Appointment(s)/Referral(s): Armando Fierro MD [Primary Care Provider] - 1-2 Days [facility], [NON-STAFF] - Bib Fontanez MD [STAFF PHYSICIAN] - 1 Week Fadi Ly MD [STAFF PHYSICIAN] - 1 Week Activity/Diet/Wound Care/Special Instructions: Patient requires a walker at discharge for diagnosis of unsteady gait Patient to report to [facility]s office tomorrow 06/01 @1030 Discharge Disposition: HOME WITH HOME HEALTH SERVICES
--- NOTE | 2020-07-01 14:36 | PN ---
PROGRESS NOTE DATE OF SERVICE: 07/01/2020 REASON FOR FOLLOWUP: Right lower leg abscess and cellulitis. INTERVAL HISTORY: Patient is currently afebrile. The patient is feeling better. Breathing comfortably. Denies having any chest pain. No shortness of breath or cough. No nausea. No abdominal pain or pain to the right foot and ankle area. PHYSICAL EXAMINATION: Blood pressure 133/78 with a pulse of 84, temperature 96.8. She is 95% on room air. General description is a middle-aged female lying in bed in no distress. Respiratory system: Unlabored breathing, clear to auscultation anteriorly. Heart S1, S2. Regular rate and rhythm. Abdomen soft, no tenderness. Right no leg swelling has much improved. LABS: Creatinine 0.76. Wound culture with group C strep. DIAGNOSTIC IMPRESSION AND PLAN: Patient with right leg abscess and cellulitis status post surgical drainage. Culture with group C strep. She will continue with Rocephin 2 g daily for 2-3 weeks, local wound care per Surgery and close outpatient followup. MMODL / IJN: [id number] /
== END 2020-07-01 14:50 | disposition home health service (06) | DRG 581 ==
LOC: 3SCARD 19:48
PROVIDERS: ADMIT Internal Medicine; ATTEND Internal Medicine
PROC: 0J9Q0ZZ Drainage of Right Foot Subcutaneous Tissue and Fascia, Open Approach (ICD-10-PCS; principal; 2020-06-28 07:30)
DX: L02.415 Cutaneous abscess of right lower limb (principal); L03.115 Cellulitis of right lower limb; B95.4 Other streptococcus as the cause of diseases classified elsewhere; F17.210 Nicotine dependence, cigarettes, uncomplicated; F32.9 Major depressive disorder, single episode, unspecified; F41.9 Anxiety disorder, unspecified; J45.909 Unspecified asthma, uncomplicated; K21.9 Gastro-esophageal reflux disease without esophagitis; M06.9 Rheumatoid arthritis, unspecified; Z20.828 Contact with and (suspected) exposure to other viral communicable diseases; Z86.79 Personal history of other diseases of the circulatory system; Z90.710 Acquired absence of both cervix and uterus; Z90.49 Acquired absence of other specified parts of digestive tract; Z98.51 Tubal ligation status; Z98.890 Other specified postprocedural states; Z71.6 Tobacco abuse counseling; Z82.49 Family history of ischemic heart disease and other diseases of the circulatory system; Z82.5 Family history of asthma and other chronic lower respiratory diseases; Z83.6 Family history of other diseases of the respiratory system; Z80.9 Family history of malignant neoplasm, unspecified
CPT/HCPCS: 36410; 76937; 80048; 80202; 82565; 85025; 86140; 87040; 87070; 87075; 87205

== ENCOUNTER → 2020-07-11 | Day surgery (SDC) | payer MEDICARE | LOC: CATHCVL 12:43 | PROVIDERS: ATTEND Internal Medicine Infectious Disease | DX: L03.115 Cellulitis of right lower limb (principal); L02.415 Cutaneous abscess of right lower limb; M19.90 Unspecified osteoarthritis, unspecified site; J45.909 Unspecified asthma, uncomplicated; Z79.891 Long term (current) use of opiate analgesic; Z79.1 Long term (current) use of non-steroidal anti-inflammatories (NSAID); Z86.59 Personal history of other mental and behavioral disorders; Z86.79 Personal history of other diseases of the circulatory system | CPT/HCPCS: 36410; 76937; C1751 ==

== ENCOUNTER → 2022-02-07 | Outpatient (CLI) | payer MEDICARE ==
--- NOTE | 2022-02-13 07:54 | US ---
EXAMINATION TYPE: US arterial LE single level DATE OF EXAM: 02/07/2022 1:51 PM CLINICAL HISTORY: M79.662, M79.661, R09.89. Pt states weakness bilateral legs, discoloration to toes, more left foot Doppler Waveforms: Right: Multiphasic Left: Multiphasic Waveforms left digits weaker when compared to right digits Ankle-Brachial Indices: Right: 1.1 Left: 1.1 Toe Brachial Indices: Right: 0.8 Left: 0.8 IMPRESSION: THERESA within normal limits. See above
== END | disposition home or self-care (01) ==
LOC: RADUSWWP 13:19
PROVIDERS: ATTEND Internal Medicine
DX: M79.662 Pain in left lower leg (principal); M79.661 Pain in right lower leg; R53.1 Weakness; R09.89 Other specified symptoms and signs involving the circulatory and respiratory systems
CPT/HCPCS: 93922